=== PATIENT | male | born 1975 ===

== ENCOUNTER 2021-03-14 09:08 | Outpatient (REF) | payer OTHER, MEDICAID, SELFPAY ==
[2021-03-14 11:10] LABS: Appearance Urine CLEAR; Color Urine YELLOW; Glucose Urine UA NEG (NEG); Leukocyte Esterase Urine NEG (NEG); Nitrite Urine NEG (NEG); PH 5.5 (5.0-8.0); Specific Gravity - Urine 1.025 (1.005-1.025); Urine Blood NEG (NEG); Urine Ketones NEG (NEG); Urine Protein NEG (NEG-TRACE)
[2021-03-14 11:49] LABS: Alanine Aminotransferase 35 U/L (0-40); Albumin Level 4.5 g/dL (3.5-5.0); Alkaline Phosphatase 48 U/L (39-117); Anion Gap 14 (12-20); Aspartate Amino Transferase 48 U/L (5-37); Bilirubin Total 0.5 mg/dL (0.0-1.0); Blood Urea Nitrogen 13 mg/dL (9-16); Calcium 9.9 mg/dL (8.4-10.2); Carbon Dioxide 29 mmol/L (22-29); Chloride 104 mmol/L (96-108); Cholesterol 223 mg/dL; Estimated Glomerular Filt Rate > 60; Glucose Fasting 87 mg/dL (60-99); HDL Cholesterol 76 mg/dL; LDL Cholesterol Calculated 117 mg/dl; Potassium 5.4 mmol/L (3.3-5.1); Sodium 142 mmol/L (135-145); Total Protein 7.2 g/dL (6.5-8.0); Triglycerides 154 mg/dL
[2021-03-14 12:18] LABS: Prostate Specific Antigen Scr 0.85 ng/mL (<0.05-4.0); TSH reflex Free T4 0.87 uIU/mL (0.32-4.0)
== END 2021-03-14 09:09 | disposition home or self-care (01) ==
LOC: HO.HMGCLDS 09:08
PROVIDERS: PCP Nurse Practitioner Family; Visit Provider Nurse Practitioner Family
DX: N39.43 Post-void dribbling (principal); R74.8 Abnormal levels of other serum enzymes
CPT/HCPCS: 36415; 80053; 80061; 81003; 84153; 84443

== ENCOUNTER 2021-03-18 12:52 | Outpatient (REF) | payer OTHER, MEDICAID, SELFPAY ==
[2021-03-18 16:46] LABS: Anion Gap 13 (12-20); Carbon Dioxide 29 mmol/L (22-29); Chloride 101 mmol/L (96-108); Potassium 4.1 mmol/L (3.3-5.1); Sodium 139 mmol/L (135-145)
[2021-03-19 07:56] LABS: HBc Num1 0.17 S/CO (0.00-0.79); HBsAGNum1 0.22 S/CO (0.00-0.99); Hepatitis B Core Antibody Nonreactive (Nonreactive); Hepatitis B Surface Antigen Negative (Negative); ~HepC Num1 0.11 S/CO (0.00-0.79); ~Hepatitis C Antibody Nonreactive (Nonreactive)
[2021-03-19 08:36] LABS: ~Hepatitis B Surface Antibody NONREACTIVE (Nonreactive)
[2021-03-20 07:45] LABS: Hepatitis A Antibody IgM 0.12 Index (0-0.79); ~Hepatitis A Antibody IgM Nonreactive (Nonreactive)
== END 2021-03-18 12:53 | disposition home or self-care (01) ==
LOC: HO.HMGCLDS 12:52
PROVIDERS: PCP Nurse Practitioner Family; Visit Provider Nurse Practitioner Family
DX: E87.5 Hyperkalemia (principal); R74.8 Abnormal levels of other serum enzymes
CPT/HCPCS: 36415; 80051; 86704; 86706; 86709; 86803; 87340

== ENCOUNTER 2021-04-03 11:36 | Outpatient (REF) | payer OTHER, MEDICAID, SELFPAY ==
--- NOTE | ~2021-04-03 | US_ITS ---
EXAMINATION: US ABDOMEN COMPLETE CLINICAL INFORMATION: Elevated liver enzymes. COMPARISON: None. TECHNIQUE: Real-time imaging of the abdominal viscera. FINDINGS: PANCREAS: Normal. ABDOMINAL AORTA: The proximal, mid, and distal segments are normal in caliber. INFERIOR VENA CAVA: Visualized portions are normal. LIVER: The liver is normal in size. The liver contour is normal. There is diffuse increased liver parenchymal echogenicity, consistent with infiltrative hepatocellular disease. No focal hepatic lesion. There is no intrahepatic biliary duct dilatation seen. GALLBLADDER: Normal. The gallbladder is physiologically distended without evidence of stones, sludge, polyps, wall thickening or pericholecystic fluid. COMMON BILE DUCT: Normal in caliber measuring 0.14 cm in diameter. RIGHT KIDNEY: Normal. No hydronephrosis. No renal calculi or focal parenchymal lesions. The kidney measures 11.6 x 4.6 x 7.2 cm in maximum dimension. LEFT KIDNEY: Normal. No hydronephrosis. No renal calculi or focal parenchymal lesions. The kidney measures 11.7 x 5.9 x 6.1 cm in maximum dimension. SPLEEN: Normal. The spleen measures 11.4 cm in maximum dimension. FREE FLUID: None. US/US abdomen complete IMPRESSION: Increased hepatic echogenicity which can be seen in the setting of hepatic steatosis or underlying liver disease.
--- NOTE | ~2021-04-03 | US_ITS ---
EXAMINATION: US PELVIS LIMITED (BLADDER) CLINICAL INFORMATION: Postvoid dribbling. COMPARISON: None TECHNIQUE: Real-time imaging of the bladder. FINDINGS: BLADDER: Well distended and normal. Bilateral ureteral jets are demonstrated. Prevoid bladder volume is 169 mL. Postvoid bladder volume is 5.4 mL. ADDITIONAL FINDINGS: Prostate is normal in size measuring 17.8 mL. Dystrophic calcifications are noted within the prostate. US/US bladder IMPRESSION: Unremarkable sonographic appearance of the bladder with a negligible post void residual.
== END 2021-04-03 11:37 | disposition home or self-care (01) ==
LOC: HO.HMGCX 11:36
PROVIDERS: PCP Nurse Practitioner Family; Visit Provider Nurse Practitioner Family
DX: N39.43 Post-void dribbling (principal); R74.8 Abnormal levels of other serum enzymes
CPT/HCPCS: 76700; 76857

== ENCOUNTER 2021-06-03 09:43 | Emergency (ER) | payer OTHER, MEDICAID, SELFPAY ==
[2021-06-03 10:18] VITALS: BP 158/108; PULSE 78; RESP 19; TEMP 37.5; O2SAT 98
[2021-06-03 10:34] VITALS: BP 173/110; PULSE 81; RESP 16; TEMP 36.1; O2SAT 100; BMI 25.7
--- NOTE | 2021-06-03 10:34 | ED_ITS ---
HPI - General Adult General Chief complaint: Back Pain/Injury Stated complaint: back pain Time Seen by Provider: 06/03/21 10:34 Source: patient Mode of arrival: ambulatory Limitations: no limitations History of Present Illness HPI narrative: Patient is a 45 year old male presenting to the emergency department today with right sided back pain. Patient states that since Thursday night, he has had pain in his right lower back. Patient states that he has had previous back problems but his neurosurgeon moved and he has not been able to establish with a new one. Patient denies any dizziness, lightheadedness, abdominal pain, nausea, vomiting, fever, chills, blurry vision, double vision, loss of vision, chest pain, difficulty breathing, shortness of breath, night sweats, pain with urination, increased urinary frequency, increased urinary urgency, blood in his urine or stool, syncope or a near syncopal episode, recent trauma or falls, bowel incontinence, bladder incontinence, bowel retention, bladder retention, or any other complaints at this time. Onset (ago): day(s) Location: back Radiation: non-radiation Severity: mild Severity scale (1-10): 3 Quality: dull Pain Consistency: intermittent Relieving factors: none Exacerbating factors: none Associated symptoms: denies other symptoms Treatments prior to arrival: none Related Data Home Medications Medication Instructions Recorded Confirmed dextroamphetamine-amphetamine 20 1 tab PO BID 03/13/21 03/13/21 mg tablet gabapentin 600 mg tablet 600 mg PO TID 03/13/21 03/13/21 lorazepam 1 mg tablet 1 mg PO DAILY PRN 03/13/21 03/13/21 Previous Rx's Medication Instructions Recorded Magic Mouthwash 5 ml PO TID 7 Days #240 ml 05/31/21 Diphen/Lido/Antacid 1:1:1 240 mL suspension cyclobenzaprine 10 mg tablet 10 mg PO TID PRN 7 Days #21 tab 06/03/21 Allergies Allergy/AdvReac Type Severity Reaction Status Date / Time No Known Allergies Allergy Verified 05/31/21 08:54 Review of Systems Constitutional: Constitutional: Reports no additional constitutional complaints, Denies chills, Denies fever(s) and Denies night sweats Eyes: Eyes: Reports no additional eye complaints, Denies blurry vision, Denies change in vision, Denies diplopia, Denies eye discharge, Denies loss of vision and Denies eye pain ENT: Denies dizziness Cardiovascular: Cardiovascular: Reports no additional cardiovascular c omplaints, Denies chest pain, Denies lightheadedness, Denies Loss of Consciousness and Denies dyspnea Respiratory: Respiratory: Reports no additional respiratory complaints and Denies dyspnea Gastrointestinal: Gastrointestinal: Reports no additional gastrointestinal complaints, Denies abdominal pain, Denies melena, Denies hematochezia, Denies change in bowel habits and Denies change in stool character Genitourinary: Genitourinary: Reports no additional male genitourinary complaints, Denies hematuria, Denies oliguria, Denies difficulty urinating, Denies dysuria, Denies urinary frequency, Denies urinary hesitancy, Denies urinary incontinence and Denies urinary urgency Musculoskeletal: Musculoskeletal: Reports no additional musculoskeletal complaints, Reports back pain, Denies numbness and Denies tingling Neurologic: Denies dizziness, Denies loss of vision, Denies numbness and Denies tingling Psychiatric: Psychiatric: Reports no additional psychiatric complaints Endocrine: Endocrine: Reports no additional endocrine complaints Hematologic/Lymphatic: Hematologic/Lymphatic: Reports no additional hematologic/lymphatic complaints Allergic/Immunologic: Allergic/Immunologic: Reports no additional allergic/immunologic complaints PMFSH Past Medical History Attestation statement: The following information was validated with the patient. Source: old records reviewed Medical History Hematoma of nasal septum Surgical History Previous back surgery Social History Social History Advance Directives: No Advance Directives Information Provided: Yes Physical Exam ED Vital Signs: Vital Signs - 24 hr 06/03/21 10:18 06/03/21 10:34 06/03/21 11:08 Temperature 99.5 F 97.0 F Pulse Rate 78 81 72 Respiratory Rate 19 16 16 Blood Pressure 158/108 H 173/110 H 156/107 H Pulse Oximetry 98 100 98 BMI result Body Mass Index 25.7 Const General: cooperative, no acute distress, alert and awake Nutritional Appearance: well nourished Orientation/consciousness: patient oriented x3 Limitations: no limitations HENMT Head: Yes normal to inspection and Yes atraumatic Ears: hearing grossly normal bilaterally and external ears normal General nose exam: Normal external nose present, no nasal discharge noted and no epistaxis Face and sinus: Yes normal facial exam, No abrasion and No laceration Mouth: Normal oral and palatal mucosa present, no drooling and no muffled voice Eyes General: appearance normal, both eyes and all related structures Periorbital: periorbital findings normal Eyelids: Yes eyelids normal Conjunctivae: conjunctivae normal Pupils: Equal, round and reactive pupils present EOM: EOMs intact bilaterally Neck Neck: Yes normal visual inspection, Yes full ROM and Yes no lymphadenopathy Chest Chest palpation & inspection: normal inspection of the chest Resp Effort & Inspection: normal respiratory effort and able to speak in complete sentences Auscultation: clear to auscultation bilaterally GI Inspection: Yes normal to inspection General: Yes no CVA tenderness Back/Spine/Pelvis Back: no CVA tenderness Cervical Spine: normal cervical lordosis and cervical ROM normal Thoracic/Lumbar Spine: thoracic and lumbar spine normal to inspection and thoraco-lumbar ROM normal Neuro General: patient oriented x3 and moves all extremities Cranial nerves: Yes Equal, round and reactive pupils present Cognition (Neuro): normal cognition Motor exam (neuro): 5/5 motor strength present throughout Sensory Exam: Normal double simultaneous stimulation for sensation Coordination: [id number] test normal Extrem General: Yes normal to inspection, Yes full ROM and Yes capillary refill normal Psych Appearance: grossly normal Mental Status: mental status grossly normal Affect: normal affect Attitude: cooperative Thought process: Normal thought process present Thought content: Normal thought content present Insight: Good insight present (Psych) Medical Decision Making [facility] Narrative Medical decision making narrative: Patient is a 45 year old male presenting to the emergency department today with right sided back pain. Patient's physical exam was unremarkable. Due to the patient's current presentation and explanation of pain, I believe this to be musculoskeletal in nature and potentially a muscle spasm. I explained my physical exam findings to the patient. I answered all questions asked by the patient. Patient received IM toradol and PO Flexeril which he stated helped his pain significantly. I stressed the importance of the patient taking his medication as prescribed. I stressed the importance of the patient following up with his primary care provider and an orthopedist. I stressed the importance of the patient returning to the emergency department immediately if his symptoms were to worsen or if he were to develop any dizziness, shortness of breath, difficulty breathing, chest pain, blurry vision, loss of vision, nausea, vomiting, abdominal pain, fever, chills, back pain, or any other complaints. Patient verbalized agreement and understanding with this treatment plan and discharge. Differential Diagnosis Differential Diagnosis: back spasm, back pain Medical Records Medical records reviewed: Yes I reviewed the patient's medical records. Discharge Plan Discharge Clinical Impression: Muscle spasm, Back pain Patient Disposition: Home, Self-Care Instructions: Acute Low Back Pain (ED), Muscle Spasm (ED) Additional Instructions: Call to schedule a follow up appointment with an Orthopedic provider. Follow up with your primary care provider. Return to the emergency department immediately if your symptoms worsen or if you develop any dizziness, shortness of breath, difficulty breathing, chest pain, blurry vision, loss of vision, nausea, vomiting, abdominal pain, fever, chills, back pain, or any other complaints. Prescriptions: New cyclobenzaprine 10 mg tablet 10 mg PO TID PRN (Reason: muscle spasm) 7 Days Qty: 21 0RF No Action gabapentin 600 mg tablet 600 mg PO TID 0RF dextroamphetamine-amphetamine 20 mg tablet 1 tab PO BID 0RF lorazepam 1 mg tablet 1 mg PO DAILY PRN0RF Magic Mouthwash Diphen/Lido/Antacid 1:1:1 240 mL suspension 5 ml PO TID 7 Days Qty: 240 0RF Rx Instructions: Lidocaine Viscous 2 % 80mL; diphenhydramine 12.5 mg/5 mL 80mL; aluminum-mag hydrox-simeth [id number]/5mL 80mL Referrals: Kush Barrientos MD [Physician] - 2 days Abdifatah Garcia FNP-CED [Primary Care Provider] - 2 days Interventions: ED Discharge Assessment Last Done: 06/03/21 11:04 Discharge Date/Time: 06/03/21 11:09 Print Language: Japanese
[2021-06-03] MEDS: Ketorolac Tromethamine 15 MG/ML VIAL IM (10:50)
[2021-06-03] MEDS: Cyclobenzaprine HCl 10 MG TABLET PO (10:50)
--- NOTE | 2021-06-03 11:03 | PC.NURSE ---
hypertension r/t acute pain level provider aware . patient medicated prior to discharge .results pending
[2021-06-03 11:08] VITALS: BP 156/107; PULSE 72; RESP 16; O2SAT 98
== END 2021-06-03 11:09 | disposition home or self-care (01) ==
PROVIDERS: Emergency Provider Emergency Medicine; PCP Nurse Practitioner Family
DX: M54.50 Low back pain, unspecified (principal); M62.830 Muscle spasm of back; I10 Essential (primary) hypertension
CPT/HCPCS: 96372; 99284; J1885

== ENCOUNTER 2021-06-11 14:56 | Outpatient (REF) | payer OTHER, MEDICAID, SELFPAY ==
--- NOTE | ~2021-06-11 | XR_ITS ---
EXAMINATION: XR LUMBOSACRAL SPINE CLINICAL INFORMATION: Radiculopathy, lumbar region COMPARISON: Previous exam November 2013 TECHNIQUE: Three views of the lumbosacral spine. FINDINGS: The vertebral bodies and posterior elements are normal. The disc spaces are preserved and the vertebral alignment is normal. The paraspinal soft tissues are normal. XR/XR lumbar spine 2-3V IMPRESSION: Unremarkable examination.
== END 2021-06-11 14:57 | disposition home or self-care (01) ==
LOC: HO.HMGCX 14:56
PROVIDERS: PCP Nurse Practitioner Family; Visit Provider Nurse Practitioner Family
DX: M54.16 Radiculopathy, lumbar region (principal)
CPT/HCPCS: 72100

== ENCOUNTER 2021-07-02 07:51 | Outpatient (RCR) | payer OTHER, MEDICAID, SELFPAY ==
--- NOTE | 2021-07-02 13:39 | MHC.PT.EP ---
[facility] [place] Office [place] Office [place] Office [address] [place] [address] [phone] F: [phone] F: [phone] F: [phone] F: [phone] Physical Therapy Plan of Care Date of Evaluation: Date of Surgery: Microdiscectomy around 6 years ago Diagnosis: Lumbar radiculopathy affecting R LE Assessment: Patient is a 45 year old R handed male who presents with s/s consistent with low back pain, radiculopathy impacting R LE. He has 2 children and several animals he assists with daily in addition to gardening and taking care of the house. Patient past medical history includes b/l meniscectomy and L4-L5 microdiscectomy. Current impairments include pain, ROM, strength, activity tolerance and functional mobility. Functional limitations include decreased ability to walk, stand, and biking for longer periods, as well as lifting and carrying, bending. We discussed the plan and pt in agreement to call back if symptoms worsen as he is having less s/s overall and is felling better than when he originally saw his MD. Frequency and Duration: The patient will be seen Follow up visit in 2-3 weeks if s/s worsen. Short Term Goals: Dependent on need for follow up. Engineering Associate Goals: Dependent on need for follow up. Treatment Plan: Modalities to reduce pain, spasms and effusion. Manual therapy to restore motion and function. Therapeutic exercise to improve strength and flexibility. Neuromuscular re-education for posture and balance. Therapeutic activities to return to functional activities of daily living. Electronically signed by: Shawn Bo, PT Please sign and return to therapist. Thank you for your referral.
--- NOTE | 2021-11-28 10:23 | MHC.PT.DC ---
[facility] [place] Office [place] Office [place] Office [address] [phone] F: [phone] F: [phone] F: [phone] F: [phone] Physical Therapy Discharge Report Diagnosis: Lumbar radiculopathy affecting R LE Date of Surgery: Microdiscectomy around 6 years ago Date of Evaluation: 07/02/21 Date of Discharge: 07/31/21 Treatments to Date: 1 Cancellations to Date: No Shows to Date: Discharge Status: Patient Elected to Stop Discharge Summary: Patient is a 45 year old R handed male who presents with s/s consistent with low back pain, radiculopathy impacting R LE. He has 2 children and several animals he assists with daily in addition to gardening and taking care of the house. Patient past medical history includes b/l meniscectomy and L4-L5 microdiscectomy. Current impairments include pain, ROM, strength, activity tolerance and functional mobility. Functional limitations include decreased ability to walk, stand, and biking for longer periods, as well as lifting and carrying, bending. Pt will hold on PT at this time and return if s/s worsen. Electronically signed by: Shawn Bo, PT Please sign and return to therapist. Thank you for your referral.
== END 2021-11-28 10:23 | disposition home or self-care (01) ==
LOC: HO.PTCHIC 07:51
PROVIDERS: PCP Nurse Practitioner Family; Visit Provider Nurse Practitioner Family
DX: M54.16 Radiculopathy, lumbar region (principal)
CPT/HCPCS: 97162

== ENCOUNTER 2021-08-29 09:22 | Outpatient (REF) | payer OTHER, MEDICAID, SELFPAY ==
[2021-08-29 11:04] LABS: MANUAL DIFF FLAG NO
[2021-08-29 11:06] LABS: Appearance Urine CLEAR; Color Urine STRAW; Glucose Urine UA NEG (NEG); Leukocyte Esterase Urine NEG (NEG); Nitrite Urine NEG (NEG); Urine Blood NEG (NEG); Urine Ketones NEG (NEG); Urine Protein NEG (NEG-TRACE)
[2021-08-29 11:14] LABS: Basophils Percent Auto 0.5 % (0-2); Eosinophils Absolute Auto 0.3 X10*3/uL (0.0-0.4); Eosinophils Percent Auto 3.8 % (0-4); Hematocrit 42.9 % (42.0-52.0); Hemoglobin 14.2 g/dl (14.0-18.0); Imm Gran Abs Auto 0.03 X10*3/uL (0.00-0.03); Imm Gran Pct Auto 0.5 % (0.0-0.4); Lymphocytes Absolute Auto 2.1 X10*3/uL (1.2-4.9); Lymphocytes Percent Auto 32.3 % (20-40); Mean Corpuscular HGB Conc 33.1 g/dl (31.0-36.0); Mean Corpuscular Hemoglobin 32.9 pg (27.0-33.0); Mean Corpuscular Volume 99.3 fL (80.0-98.0); Mean Platelet Volume 9.2 fL (9.4-12.4); Monocytes Absolute Auto 0.8 X10*3/uL (0.1-1.2); Monocytes Percent Auto 12.1 % (2-11); Neutrophils Absolute Auto 3.4 x10*3/uL (2.0-8.3); Neutrophils Percent Auto 50.8 % (45-73); Platelet Count 288 X10*3/uL (160-400); Red Blood Count 4.32 X10*6/uL (4.60-5.80); Red Cell Distribution Width 12.3 % (11.0-16.0); White Blood Count 6.6 X10*3/uL (4.8-10.8)
[2021-08-29 11:42] LABS: TSH reflex Free T4 2.15 uIU/mL (0.32-4.0)
[2021-08-29 11:44] LABS: Alanine Aminotransferase 72 U/L (0-40); Albumin Level 4.6 g/dL (3.5-5.0); Alkaline Phosphatase 56 U/L (39-117); Anion Gap 14 (12-20); Aspartate Amino Transferase 88 U/L (5-37); Bilirubin Total 0.4 mg/dL (0.0-1.0); Blood Urea Nitrogen 12 mg/dL (9-16); Calcium 9.6 mg/dL (8.4-10.2); Carbon Dioxide 30 mmol/L (22-29); Chloride 100 mmol/L (96-108); Cholesterol 251 mg/dL; Estimated Glomerular Filt Rate > 60; Glucose Fasting 105 mg/dL (60-99); HDL Cholesterol 84 mg/dL; LDL Cholesterol Calculated 132 mg/dl; Potassium 4.7 mmol/L (3.3-5.1); Sodium 139 mmol/L (135-145); Total Protein 7.3 g/dL (6.5-8.0); Triglycerides 178 mg/dL
== END 2021-08-29 09:23 | disposition home or self-care (01) ==
LOC: HO.HMGCLDS 09:22
PROVIDERS: PCP Nurse Practitioner Family; Visit Provider Nurse Practitioner Family
DX: Z00.00 Encounter for general adult medical examination without abnormal findings (principal)
CPT/HCPCS: 36415; 80053; 80061; 81003; 84443; 85025

== ENCOUNTER 2022-07-14 08:40 | Outpatient (REF) | payer OTHER, MEDICAID, SELFPAY ==
[2022-07-14 11:17] LABS: MANUAL DIFF FLAG NO
[2022-07-14 11:45] LABS: Basophils Absolute Auto 0.1 X10*3/uL (0.0-0.2); Eosinophils Absolute Auto 0.2 X10*3/uL (0.0-0.4); Eosinophils Percent Auto 3.9 % (0-4); Imm Gran Abs Auto 0.01 X10*3/uL (0.00-0.03); Imm Gran Pct Auto 0.2 % (0.0-0.4); Lymphocytes Percent Auto 38.7 % (20-40); Mean Corpuscular HGB Conc 33.3 g/dl (31.0-36.0); Mean Corpuscular Hemoglobin 33.6 pg (27.0-33.0); Mean Corpuscular Volume 100.9 fL (80.0-98.0); Mean Platelet Volume 9.6 fL (9.4-12.4); Monocytes Absolute Auto 0.6 X10*3/uL (0.1-1.2); Monocytes Percent Auto 10.6 % (2-11); Neutrophils Absolute Auto 2.4 x10*3/uL (2.0-8.3); Neutrophils Percent Auto 45.6 % (45-73); Platelet Count 276 X10*3/uL (160-400); Red Blood Count 4.46 X10*6/uL (4.60-5.80); Red Cell Distribution Width 11.8 % (11.0-16.0); White Blood Count 5.2 X10*3/uL (4.8-10.8)
[2022-07-14 12:22] LABS: Alanine Aminotransferase 162 U/L (0-40); Albumin Level 4.3 g/dL (3.5-5.0); Alkaline Phosphatase 68 U/L (39-117); Anion Gap 15 (12-20); Aspartate Amino Transferase 229 U/L (5-37); Bilirubin Total 0.6 mg/dL (0.0-1.0); Blood Urea Nitrogen 14 mg/dL (9-16); Calcium 9.2 mg/dL (8.4-10.2); Carbon Dioxide 27 mmol/L (22-29); Chloride 103 mmol/L (96-108); Cholesterol 259 mg/dL; Estimated Glomerular Filt Rate > 60; Glucose Fasting 99 mg/dL (60-99); HDL Cholesterol 68 mg/dL; LDL Cholesterol Calculated 128 mg/dl; Potassium 5.5 mmol/L (3.3-5.1); Sodium 139 mmol/L (135-145); Total Protein 7.1 g/dL (6.5-8.0); Triglycerides 318 mg/dL
[2022-07-14 12:38] LABS: TSH reflex Free T4 1.83 uIU/mL (0.32-4.0)
== END 2022-07-14 08:41 | disposition home or self-care (01) ==
LOC: HO.HMGCLDS 08:40
PROVIDERS: PCP Nurse Practitioner Family; Visit Provider Nurse Practitioner Family
DX: I10 Essential (primary) hypertension (principal)
CPT/HCPCS: 36415; 80053; 80061; 84443; 85025

== ENCOUNTER 2022-07-16 11:09 | Outpatient (REF) | payer OTHER, MEDICAID, SELFPAY ==
[2022-07-16 14:19] LABS: MANUAL DIFF FLAG NO
[2022-07-16 14:27] LABS: Basophils Absolute Auto 0.1 X10*3/uL (0.0-0.2); Basophils Percent Auto 0.7 % (0-2); Eosinophils Absolute Auto 0.1 X10*3/uL (0.0-0.4); Hematocrit 46.1 % (42.0-52.0); Hemoglobin 15.5 g/dl (14.0-18.0); Imm Gran Abs Auto 0.02 X10*3/uL (0.00-0.03); Imm Gran Pct Auto 0.3 % (0.0-0.4); Lymphocytes Absolute Auto 1.7 X10*3/uL (1.2-4.9); Lymphocytes Percent Auto 23.5 % (20-40); Mean Corpuscular HGB Conc 33.6 g/dl (31.0-36.0); Mean Corpuscular Hemoglobin 33.5 pg (27.0-33.0); Mean Corpuscular Volume 99.6 fL (80.0-98.0); Mean Platelet Volume 9.4 fL (9.4-12.4); Monocytes Absolute Auto 0.7 X10*3/uL (0.1-1.2); Monocytes Percent Auto 9.4 % (2-11); Neutrophils Absolute Auto 4.6 x10*3/uL (2.0-8.3); Neutrophils Percent Auto 64.1 % (45-73); Platelet Count 270 X10*3/uL (160-400); Red Blood Count 4.63 X10*6/uL (4.60-5.80); Red Cell Distribution Width 11.9 % (11.0-16.0); White Blood Count 7.1 X10*3/uL (4.8-10.8)
[2022-07-16 15:03] LABS: Alanine Aminotransferase 152 U/L (0-40); Albumin Level 4.8 g/dL (3.5-5.0); Alkaline Phosphatase 68 U/L (39-117); Anion Gap 16 (12-20); Aspartate Amino Transferase 173 U/L (5-37); Blood Urea Nitrogen 16 mg/dL (9-16); Calcium 9.8 mg/dL (8.4-10.2); Carbon Dioxide 27 mmol/L (22-29); Chloride 103 mmol/L (96-108); Estimated Glomerular Filt Rate > 60; Glucose Random 116 mg/dL (60-115); Potassium 4.9 mmol/L (3.3-5.1); Sodium 141 mmol/L (135-145); Total Protein 7.6 g/dL (6.5-8.0)
== END 2022-07-16 11:10 | disposition home or self-care (01) ==
LOC: HO.HMGCLDS 11:09
PROVIDERS: PCP Nurse Practitioner Family; Visit Provider Nurse Practitioner Family
DX: E87.5 Hyperkalemia (principal); R74.8 Abnormal levels of other serum enzymes
CPT/HCPCS: 36415; 80053; 85025

== ENCOUNTER 2022-09-02 12:33 | Outpatient (REF) | payer OTHER, MEDICAID, SELFPAY ==
[2022-09-02 14:15] LABS: MANUAL DIFF FLAG NO
[2022-09-02 14:23] LABS: Basophils Percent Auto 0.6 % (0-2); Eosinophils Absolute Auto 0.1 X10*3/uL (0.0-0.4); Eosinophils Percent Auto 0.9 % (0-4); Hematocrit 44.8 % (42.0-52.0); Hemoglobin 15.2 g/dl (14.0-18.0); Imm Gran Abs Auto 0.02 X10*3/uL (0.00-0.03); Imm Gran Pct Auto 0.3 % (0.0-0.4); Lymphocytes Absolute Auto 1.6 X10*3/uL (1.2-4.9); Lymphocytes Percent Auto 25.5 % (20-40); Mean Corpuscular HGB Conc 33.9 g/dl (31.0-36.0); Mean Corpuscular Hemoglobin 33.3 pg (27.0-33.0); Mean Corpuscular Volume 98.2 fL (80.0-98.0); Monocytes Absolute Auto 0.6 X10*3/uL (0.1-1.2); Neutrophils Percent Auto 62.7 % (45-73); Platelet Count 308 X10*3/uL (160-400); Red Blood Count 4.56 X10*6/uL (4.60-5.80); Red Cell Distribution Width 12.3 % (11.0-16.0); White Blood Count 6.4 X10*3/uL (4.8-10.8)
[2022-09-02 14:25] LABS: Appearance Urine Clear; Color Urine Yellow; Glucose Urine UA Negative (Negative); Leukocyte Esterase Urine Negative (Negative); Nitrite Urine Negative (Negative); PH 5.5 (5.0-9.0); Urine Blood Negative (Negative); Urine Ketones Trace mg/dL (Negative); Urine Protein Negative (Neg-Trace)
[2022-09-02 14:43] LABS: Alanine Aminotransferase 140 U/L (0-40); Albumin Level 4.6 g/dL (3.5-5.0); Alkaline Phosphatase 73 U/L (39-117); Anion Gap 18 (12-20); Aspartate Amino Transferase 226 U/L (5-37); Bilirubin Total 0.8 mg/dL (0.0-1.0); Blood Urea Nitrogen 12 mg/dL (9-16); Carbon Dioxide 26 mmol/L (22-29); Chloride 100 mmol/L (96-108); Cholesterol 279 mg/dL; Estimated Glomerular Filt Rate > 60; Glucose Fasting 127 mg/dL (60-99); HDL Cholesterol 64 mg/dL; Potassium 4.4 mmol/L (3.3-5.1); Sodium 140 mmol/L (135-145); Total Protein 7.8 g/dL (6.5-8.0); Triglycerides 493 mg/dL
[2022-09-02 14:57] LABS: TSH reflex Free T4 1.62 uIU/mL (0.32-4.0)
== END 2022-09-02 12:34 | disposition home or self-care (01) ==
LOC: HO.HMGCLDS 12:33
PROVIDERS: PCP Nurse Practitioner Family; Visit Provider Nurse Practitioner Family
DX: Z00.00 Encounter for general adult medical examination without abnormal findings (principal); I10 Essential (primary) hypertension; E78.5 Hyperlipidemia, unspecified; Z13.29 Encounter for screening for other suspected endocrine disorder
CPT/HCPCS: 36415; 80053; 80061; 81003; 84443; 85025

== ENCOUNTER 2023-02-23 10:12 | Outpatient (AMB) | payer OTHER, SELFPAY ==
--- NOTE | 2023-02-23 10:16 | A.OFFPC_ITS ---
Vital Signs 02/23/23 10:19 Height 6 ft Weight 210 lb BMI 28.5 BP 120/72 Blood Pressure Location Rt brachial Position Sitting Pulse 102 H Pulse Source Pulse Oximeter Pulse Oximetry (%) 98 Oxygen Delivery Method Room Air Intake Visit Reasons: 6 month follow up Intake Note: Patient here for blood pressure follow up. Allergies No Known Allergies Allergy (Verified 02/23/23 10:20) Medication List - Last Reconciled 02/23/23 by JIMY Larios amlodipine 5 mg PO DAILY dextroamphetamine-amphetamine 20 mg 1 tab PO BID gabapentin 600 mg PO TID 30 days hydrochlorothiazide 12.5 mg PO DAILY lisinopril 40 mg PO DAILY lorazepam 1 mg PO DAILY PRN Tobacco use date assessed: 09/02/22 HPI 6 month follow up HPI Details HTN: Blood pressure is managed with amlodipine 5mg, hydrochlorothiazide 12.5mg, and lisinopril 40mg. Denies chest pain, shortness of breath, headache, dizziness, and blurred vision. Pt c/o low libido. Will check testosterone. Pt's fasting blood sugar was elevated, will order further labs. Due for colon screen, will refer to GI. [facility] Medical History Hematoma of nasal septum Surgical History Previous back surgery Family History Mother Substance use disorder Mental health disorder Father Mental health disorder Maternal Grandmother Mental health disorder Maternal Uncle Mental health disorder Social History Housing: House Patient Tobacco Use Status: Former Tobacco user Years Smoked: quit over 10years ago e-Cigarette/Vaping Use: Never Used Second Hand Smoke Exposure: No service: No Current occupational status: unemployed Cognitive needs: No Hearing needs: No Vision needs: No Questionnaire Thrive Questionnaire Date Thrive assessed: 07/16/22 LYNNETTE-7 AMB Questionnaire LYNNETTE-7 Date LYNNETTE - 7 assessed: 07/16/22 Source: Developed by Drs. Bladimir Maldonado, Jessie Abebe Ramirez and colleagues, with an educational delilah from [employer]. Review of Systems Const Reports as per HPI Physical exam (Primary Care) Vital Signs: Last Vital Signs Pulse 102 H 02/23/23 10:19 BP 120/72 02/23/23 10:19 Pulse Ox 98 02/23/23 10:19 Oxygen Delivery Method Room Air 02/23/23 10:19 BMI result Body Mass Index 28.5 Tobacco/Smoking Status: Tobacco use Status Tobacco use date assessed 09/02/22 02/23/23 10:16 Patient Tobacco Use Status Former Tobacco user 02/23/23 10:16 e-Cigarette/Vaping Use Never Used 02/23/23 10:16 Thrive Assessment: Date of Thrive Assessment Date Thrive assessed 07/16/22 02/23/23 10:16 Const General: cooperative Orientation/consciousness: patient oriented x3 Resp Effort & Inspection: normal respiratory effort Auscultation: clear to auscultation bilaterally Cardio Rate: regular rate Rhythm: regular rhythm Heart sounds: S1 normal heart sound present and S2 normal heart sound present Neuro General: patient oriented x3 Psych Appearance: grossly normal Mental Status: mental status grossly normal Speech and movement: Normal speech and movement present Affect: normal affect Attitude: cooperative Thought process: Normal thought process present Thought content: Normal thought content present Insight: Good insight present (Psych) Judgement: Good judgement present (Psych) Assessment and Plan Assessment & Plan (1) Elevated fasting blood sugar: Code(s): R73.01 - Impaired fasting glucose Plan: Labs ordered (2) Screening for colon cancer: Code(s): Z12.11 - Encounter for screening for malignant neoplasm of colon Plan: Referred to [facility] (3) Low libido: Code(s): R68.82 - Decreased libido Plan: Testosterone ordered Plan The patient agreed to the use of a curator medical museum for this encounter. Scribed for JIMY Sullivan by Xiomara Hazel curator medical museum, on 02/23/2023 at 10:30 EST. Orders: Orders Hemoglobin A1c Today R73.01 - Impaired fasting glucose Complete Blood Count Auto Diff Today R73.01 - Impaired fasting glucose TSH reflex Free T4 Today R73.01 - Impaired fasting glucose Testosterone, Free/Total Today R68.82 - Decreased libido Comprehensive Met. Panel Today R73.01 - Impaired fasting glucose UA CC w/rflx Micro + Cult Today R73.01 - Impaired fasting glucose Referrals Gastroenterology Referral Z12.11 - Encounter for screening for malignant neoplasm of colon Coding Level of Care Code Est Pt Level 3 (27321) Diagnoses Elevated fasting blood sugar R73.01 Screening for colon cancer Z12.11 Low libido R68.82
[2023-02-23 10:19] VITALS: BP 120/72; PULSE 102; O2SAT 98; BMI 28.5
== END 2023-02-23 10:39 | disposition home or self-care (01) ==
PROVIDERS: PCP Nurse Practitioner Family; Visit Provider Nurse Practitioner Family
DX: R73.01 Impaired fasting glucose (principal); Z12.11 Encounter for screening for malignant neoplasm of colon; R68.82 Decreased libido
CPT/HCPCS: 99213

== ENCOUNTER 2023-02-23 10:40 | Outpatient (REF) | payer OTHER, SELFPAY ==
[2023-02-23 13:08] LABS: MANUAL DIFF FLAG NO
[2023-02-23 13:26] LABS: Estimated Average Glucose 103 mg/dL; Hemoglobin A1c % 5.2 % (<6.0)
[2023-02-23 13:41] LABS: Alanine Aminotransferase 39 U/L (0-40); Albumin Level 4.2 g/dL (3.5-5.0); Alkaline Phosphatase 52 U/L (39-117); Anion Gap 17 (12-20); Aspartate Amino Transferase 56 U/L (5-37); Bilirubin Total 0.7 mg/dL (0.0-1.0); Blood Urea Nitrogen 8 mg/dL (9-16); Calcium 9.2 mg/dL (8.4-10.2); Carbon Dioxide 26 mmol/L (22-29); Chloride 98 mmol/L (96-108); Estimated Glomerular Filt Rate > 60; Glucose Random 118 mg/dL (60-115); Potassium 4.1 mmol/L (3.3-5.1); Sodium 137 mmol/L (135-145); Total Protein 7.4 g/dL (6.5-8.0)
[2023-02-23 13:58] LABS: Appearance Urine Clear; Color Urine Yellow; Glucose Urine UA Negative (Negative); Leukocyte Esterase Urine Negative (Negative); Nitrite Urine Negative (Negative); TSH reflex Free T4 3.11 uIU/mL (0.32-4.0); Urine Blood Negative (Negative); Urine Ketones Trace mg/dL (Negative); Urine Protein Negative (Neg-Trace)
[2023-02-23 14:18] LABS: Basophils Percent Auto 0.6 % (0-2); Eosinophils Absolute Auto 0.2 X10*3/uL (0.0-0.4); Eosinophils Percent Auto 2.4 % (0-4); Hematocrit 43.2 % (42.0-52.0); Hemoglobin 14.5 g/dl (14.0-18.0); Imm Gran Abs Auto 0.02 X10*3/uL (0.00-0.03); Imm Gran Pct Auto 0.3 % (0.0-0.4); Lymphocytes Absolute Auto 2.4 X10*3/uL (1.2-4.9); Lymphocytes Percent Auto 34.1 % (20-40); Mean Corpuscular HGB Conc 33.6 g/dl (31.0-36.0); Mean Corpuscular Hemoglobin 33.4 pg (27.0-33.0); Mean Corpuscular Volume 99.5 fL (80.0-98.0); Mean Platelet Volume 9.5 fL (9.4-12.4); Monocytes Absolute Auto 0.6 X10*3/uL (0.1-1.2); Monocytes Percent Auto 8.9 % (2-11); Neutrophils Absolute Auto 3.8 x10*3/uL (2.0-8.3); Neutrophils Percent Auto 53.7 % (45-73); Platelet Count 305 X10*3/uL (160-400); Red Blood Count 4.34 X10*6/uL (4.60-5.80); White Blood Count 7.1 X10*3/uL (4.8-10.8)
[2023-02-27 19:07] LABS: Testosterone, Free 85.9 pg/mL (35.0-155.0); Testosterone, Total 443 ng/dL (250-1100)
== END 2023-02-23 10:41 | disposition home or self-care (01) ==
LOC: HO.HMGCLDS 10:40
PROVIDERS: PCP Nurse Practitioner Family; Visit Provider Nurse Practitioner Family
DX: R73.01 Impaired fasting glucose (principal); R68.82 Decreased libido
CPT/HCPCS: 36415; 80053; 81003; 83036; 84402; 84403; 84443; 85025

== ENCOUNTER 2023-05-08 10:27 | Outpatient (REF) | payer OTHER, SELFPAY ==
[2023-05-08 12:39] LABS: C Reactive Protein 0.33 mg/dL (< or = 0.50)
[2023-05-08 12:56] LABS: TSH reflex Free T4 2.37 uIU/mL (0.32-4.0)
[2023-05-11 12:53] LABS: Thyroid Peroxidase Antibodies 1 IU/mL (<9)
[2023-05-12 19:28] LABS: Transglutaminase Ab IgG <1.0 U/mL; Transglutaminase IgA <1.0 U/mL
== END 2023-05-08 10:28 | disposition home or self-care (01) ==
LOC: HO.LAB 10:27
PROVIDERS: PCP Nurse Practitioner Family; Visit Provider Nurse Practitioner
DX: Z01.818 Encounter for other preprocedural examination (principal); D21.6 Benign neoplasm of connective and other soft tissue of trunk, unspecified; R19.7 Diarrhea, unspecified; R63.5 Abnormal weight gain; E06.3 Autoimmune thyroiditis; Z91.09 Other allergy status, other than to drugs and biological substances
CPT/HCPCS: 36415; 84443; 86003; 86140; 86364; 86376

== ENCOUNTER 2023-05-08 10:27 | Outpatient (AMB) | payer OTHER, SELFPAY ==
--- NOTE | 2023-05-08 10:31 | A.OFFVIS_ITS ---
Intake Vital Signs 05/08/23 10:33 Height 6 ft Weight 220 lb 7.396 oz BMI 29.9 BP 141/93 H Blood Pressure Location Lt brachial Position Sitting Pulse 84 Intake Visit Reasons: Colonoscopy Screening Intake Note: New patient in office for colonoscopy screening. CC: everything is lose, constant gurgling in there, not much pain just discomfort . He reports nausea and occasional heartburn and acid reflux but states its never being an issue Patient sates last colonoscopy was here with us about 5 years ago. 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 He is referred by Abdifatah Garcia of [facility] primary care. PMX Alcohol misuse disorder Hypertension High cholesterol Impaired fasting glucose Abnormal liver enzymes Low back pain with radiculopathy Dribbling with urination Hematoma of the nasal septum History of tubular adenoma History of Yonas's thyroiditis History of Suboxone use for chronic pain * SURGICAL HISTORY Microdiscectomy L4-L5 resolved any pain Colonoscopy, 2018-[place] hyperplastic polyp bilatera meniscus repair Tonsillectomy Pilonidal cyst removal * ALLERGIES: NKDA * [employer] LABS: Laboratory Tests 03/18/21 03/18/21 02/23/23 13:24 13:24 10:50 WBC 7.1 Hgb 14.5 Hct 43.2 MCV 99.5 H MCH 33.4 H Plt Count 305 Estimated GFR > 60 Total Bilirubin 0.7 AST 56 H ALT 39 Alkaline Phosphata se 52 TSH Hepatitis A IgM Ab Nonreactive Hep Bs Antigen Negative Hep Bs Antibody NONREACTIVE Hep B Core Total A b Nonreactive Hepatitis C Ab (EI A) Nonreactive 02/23/23 10:50 WBC Hgb Hct MCV MCH Plt Count Estimated GFR Total Bilirubin AST ALT Alkaline Phosphata se TSH 3.11 Hepatitis A IgM Ab Hep Bs Antigen Hep Bs Antibody Hep B Core Total A b Hepatitis C Ab (EI A) Laboratory Tests 02/23/23 10:50 TSH 3.11 60# over past year 2018 colonoscopy-[place] COMMENT: Patient is on Suboxone therapy. PROCEDURE DONE: Colonoscopy with cold snare polypectomy x1. PROCEDURE IN DETAIL: Digital rectal examination revealed prostate to be normal to digital palpation. Videocolonoscope was introduced without difficulty. It was navigated into the rectosigmoid, sigmoid. Polyp was seen at about 15 cm. Decision was made to remove the polyp at the end of the procedure. Scope was advanced through sigmoid, descending, transverse, ascending colon, down to the cecal cap. There was a fair residual of slightly murky bilious fluid throughout the colon causing limited viewing which necessitated flushing and suctioning to adequately view the mucosa. Scope continued to be withdrawn. Polyp was reidentified at 15 cm and was removed with cold snare polypectomy technique. No adverse bleeding was noted. Anorectal verge was clear. There were 1 plus internal hemorrhoids present. GENERAL IMPRESSION: 1. Rectosigmoid polyp. 2. Internal hemorrhoids, 1 plus. PLAN: Current recommendation to repeat asymptomatic screening in this patient will be 5 years. Patient will be seen in our office in followup to be clear on instructions about screening of his own and at-risk family members. Ha Neville MD /11/24 Received: 12/15/17 Submitted by: HA NEVILLE MD MATERIAL RECEIVED: POLYP AT 15 CM. -- DIAGNOSIS Colon, 15 cm, howard ypectomy: Hyperpl astic mucosal poly p TODAY'S VISIT He tolerated his prior 2 scopes well. He has been having diarrhea recently for a few months with slow onset, prior BM's were 1-2 times a day and formed. He has fecal urgency. He is living in a new house with new stress, he has recently cut back on ETOH from the hard stuff to just beer. He can not ID any new medications introduced, preceding illness, or diet changes otherwise. His lisinopril was recently increased and his newest med is HCTZ. No abd pain. He has occasional nausea in the AM. He has gained wt recently. 60# over past year. TSH creeping up. There are no prior problems with anesthesia or sedation. He denies any cardiac or respiratory problems. NO ID problems. He had a TA on prior scope and he does not know his FHX well. [facility] Medical History (Updated 05/08/23 @ 11:18 by SHYAM Bocye) Hematoma of nasal septum Surgical History (Updated 05/08/23 @ 11:00 by SHYAM Boyce) Hx of tonsillectomy H/O colonoscopy Previous back surgery Family History Mother Substance use disorder Mental health disorder Father Mental health disorder Maternal Grandmother Mental health disorder Maternal Uncle Mental health disorder Maternal Grandfather Skin cancer Maternal Uncle Cancer Maternal Aunt Breast cancer Social History Housing: House Patient Tobacco Use Status: Former Tobacco user Years Smoked: quit over 10years ago e-Cigarette/Vaping Use: Never Used Second Hand Smoke Exposure: No service: No Current occupational status: unemployed Cognitive needs: No Hearing needs: No Vision needs: No Review of Systems Const Denies fatigue, Denies fever(s), Denies night sweats, Denies poor appetite, Reports weight gain and Denies weight loss ENT Reports Normal hearing present, Denies dental pain, Denies dysphagia, Denies hearing loss, Denies mouth pain, Denies odynophagia, Denies throat swelling, Denies tongue swelling and Reports other (Dentition adequate) Card Reports no additional complaints Resp Reports no additional complaints GI Details: Denies abdominal pain, Denies melena, Denies bloating, Denies hematochezia, Denies constipation, Denies GI cramping, Denies dysphagia, Denies excessive flatus, Denies early satiety, Denies heartburn, Reports diarrhea, Denies nausea, Denies odynophagia, Denies vomiting and Denies hematemesis Skin/Breast Denies pruritus, Denies lesions, Denies rash and Denies jaundice Neuro Reports Normal hearing present and Denies Abnormal speech present Endo Denies fatigue Aller/Immun Denies throat swelling and Denies tongue swelling Physical Exam Vital Signs: Last Vital Signs Pulse 84 05/08/23 10:33 BP 141/93 H 05/08/23 10:33 BMI result Body Mass Index 29.9 Const General: cooperative, no acute distress, well developed and well groomed Nutritional Appearance: well nourished and overweight Orientation/consciousness: oriented to person, oriented to place and oriented to time Limitations: No language barrier HEENT Head: Yes normocephalic and Yes atraumatic Eyes General: appearance normal, both eyes and all related structures Pupils: Equal, round and reactive pupils present Neck Neck: Yes normal visual inspection and Yes no lymphadenopathy Thyroid: Thyroid normal Resp Effort & Inspection: normal respiratory effort and able to speak in complete sentences Auscultation: clear to auscultation bilaterally Cardio Rate: regular rate Rhythm: regular rhythm Heart sounds: Normal, physiologic split S2 sound present Peripheral pulses: radial pulses present and posterior tibial pulses present GI Inspection: No distended, No Abdominal panniculus present and Yes obesity Palpation (GI): Soft to palpation, nontender, no guarding, not rigid and No hepatosplenomegaly present Percussion: Yes normal to percussion Auscultation: Hyperactive bowel sounds present Rectal Exam - Male: Yes deferred Skin General skin exam: no rashes or lesions noted, turgor normal, skin not dry, no jaundice, No spider nevi and no striae Rashes: no rashes Nails: normal Neuro General: oriented to person, oriented to place and oriented to time Cranial nerves: Yes Equal, round and reactive pupils present and Yes Normal hearing present Speech: No Abnormal speech present Extrem General: Yes normal to inspection, No clubbing, No cyanosis and No edema Psych Appearance: grossly normal and well kempt Mental Status: mental status grossly normal Speech and movement: Normal speech and movement present Affect: normal affect Attitude: cooperative Thought process: Normal thought process present and not confabulating Thought content: Normal thought content present Insight: Limited insight present (Psych) Judgement: Limited judgement present (Psych) Assessment & Plan Assessment & Plan (1) Tubular adenoma of colon: Comment: 2013 colonoscopy at [facility] Code(s): D12.6 - Benign neoplasm of colon, unspecified (2) Pre-op examination: Code(s): Z01.818 - Encounter for other preprocedural examination (3) Diarrhea: Code(s): R19.7 - Diarrhea, unspecified (4) Yonas's thyroiditis: Code(s): E06.3 - Autoimmune thyroiditis (5) Weight gain: Code(s): R63.5 - Abnormal weight gain Plan He tolerated his prior 2 scopes well. He has been having diarrhea recently for a few months with slow onset, prior BM's were 1-2 times a day and formed. He has fecal urgency. He is living in a new house with new stress, he has recently cut back on ETOH from the hard stuff to just beer. He can not ID any new medications introduced, preceding illness, or diet changes otherwise. His lisinopril was recently increased and his newest med is HCTZ. No abd pain. He has occasional nausea in the AM. He has gained wt recently. 60# over past year. TSH creeping up. There are no prior problems with anesthesia or sedation. He denies any cardiac or respiratory problems. NO ID problems. He had a TA on prior scope and he does not know his FHX well. Return office visit in 4 weeks to go over his labs and determine any C2 treatment for his GI symptoms. Orders: Orders C Reactive Protein 05/08/23 R19.7 - Diarrhea, unspecified, E06.3 - Autoimmune thyroiditis, R63.5 - Abnormal weight gain Transglutaminase IgA 05/08/23 R19.7 - Diarrhea, unspecified, E06.3 - Autoimmune thyroiditis, R63.5 - Abnormal weight gain Colonoscopy - GI Use Only 05/08/23 R19.7 - Diarrhea, unspecified, E06.3 - Autoimmune thyroiditis, R63.5 - Abnormal weight gain Transglutaminase Ab IgG 05/08/23 R19.7 - Diarrhea, unspecified, E06.3 - Autoimmune thyroiditis, R63.5 - Abnormal weight gain TSH reflex Free T4 05/08/23 R19.7 - Diarrhea, unspecified, E06.3 - Autoimmune thyroiditis, R63.5 - Abnormal weight gain Rast Allergen 05/08/23 R19.7 - Diarrhea, unspecified, E06.3 - Autoimmune thyroiditis, R63.5 - Abnormal weight gain Thyroid Peroxidase Antibodies 05/08/23 R63.5 - Abnormal weight gain, E06.3 - Autoimmune thyroiditis Medications: New bisacodyl (Dulcolax (bisacodyl)) 10 mg (2 x 5 mg) PO BEDTIME 4 tabs 0RF 2 days peg 3350-electrolytes 236-22.74-6.74 -5.86 gram (Golytely) until fecal effluent is clear; do not exceed a total volume of 2,000 mL 240 mL PO Q10M 4,000 mL 0RF 1 day Z12.11 - Encounter for screening for malignant neoplasm of colon Coding Level of Care Code New Pt Level 3 (88882) Diagnoses Tubular adenoma of colon D12.6 Pre-op examination Z01.818 Diarrhea R19.7 Yonas's thyroiditis E06.3 Weight gain R63.5
[2023-05-08 10:33] VITALS: BP 141/93; PULSE 84; BMI 29.9
== END 2023-05-08 11:22 | disposition home or self-care (01) ==
PROVIDERS: PCP Nurse Practitioner Family; Visit Provider Nurse Practitioner
DX: D12.6 Benign neoplasm of colon, unspecified (principal); Z01.818 Encounter for other preprocedural examination; R19.7 Diarrhea, unspecified; E06.3 Autoimmune thyroiditis; R63.5 Abnormal weight gain
CPT/HCPCS: 99203

== ENCOUNTER 2023-06-11 09:55 | Outpatient (AMB) | payer OTHER, SELFPAY ==
--- NOTE | 2023-06-11 09:58 | A.OFFVIS_ITS ---
Intake Vital Signs 06/11/23 09:59 Height 6 ft Weight 226 lb 10.163 oz BMI 30.7 BP 125/75 Blood Pressure Location Lt brachial Position Sitting Pulse 78 Intake Visit Reasons: Diarrhea follow up 4 weeks Allergies No Known Allergies Allergy (Verified 06/11/23 10:00) HPI Diarrhea follow up 4 weeks HPI Details Assessment & Plan (1) Tubular adenoma of colon: Comment: 2013 colonoscopy at [facility] Code(s): D12.6 - Benign neoplasm of colon, unspecified (2) Pre-op examination: Code(s): Z01.818 - Encounter for other preprocedural examination (3) Diarrhea: Code(s): R19.7 - Diarrhea, unspecified (4) Yonas's thyroiditis: Code(s): E06.3 - Autoimmune thyroiditis (5) Weight gain: Code(s): R63.5 - Abnormal weight gain Plan He tolerated his prior 2 scopes well. He has been having diarrhea recently for a few months with slow onset, prior BM's were 1-2 times a day and formed. He has fecal urgency. He is living in a new house with new stress, he has recently cut back on ETOH from the hard stuff to just beer. He can not ID any new medications introduced, preceding illness, or diet changes otherwise. His lisinopril was recently increased and his newest med is HCTZ. No abd pain. He has occasional nausea in the AM. He has gained wt recently. 60# over past year. TSH creeping up. There are no prior problems with anesthesia or sedation. He denies any cardiac or respiratory problems. NO ID problems. He had a TA on prior scope and he does not know his FHX well. Return office visit in 4 weeks to go over his labs and determine any C2 treatment for his GI symptoms. Orders: Orders C Reactive Protein 05/08/23 R19.7 - Diarrhea, unspecified, E06.3 - Autoimmune thyr oiditis, R63.5 - A bnormal weight gai n Transglutaminase I gA 05/08/23 R19.7 - Diarrhea, unspecified, E06.3 - Autoimmune thyr oiditis, R63.5 - A bnormal weight gai n Colonoscopy - GI U se Only 05/08/23 R19.7 - Diarrhea, unspecified, E06.3 - Autoimmune thyr oiditis, R63.5 - A bnormal weight gai n Transglutaminase A b IgG 05/08/23 R19.7 - Diarrhea, unspecified, E06.3 - Autoimmune thyr oiditis, R63.5 - A bnormal weight gai n TSH reflex Free T4 05/08/23 R19.7 - Diarrhea, unspecified, E06.3 - Autoimmune thyr oiditis, R63.5 - A bnormal weight gai n Rast Allergen 05/08/23 R19.7 - Diarrhea, unspecified, E06.3 - Autoimmune thyr oiditis, R63.5 - A bnormal weight gai n Thyroid Peroxidase Antibodies 05/08/23 R63.5 - Abnormal w eight gain, E06.3 - Autoimmune thyro iditis Medications: New bisacodyl (Dulcola x (bisacodyl)) 10 mg (2 x 5 mg) P O BEDTIME 4 tabs 0 RF 2 days peg 3350-electroly jb 236-22.74-6.74 -5.86 gram (Golyt germaine) until feca l effluent is kylie r; do not exceed a total volume of 2 ,000 mL 240 mL PO Q10M 4,0 00 mL 0RF 1 day Z12.11 - Encounter for screening for malignant neoplas m of colon LABS: Laboratory Tests 05/08/23 11:42 C-Reactive Protein 0.33 TSH 2.37 Tiss Transglutamin IgG <1.0 Tiss Transglutamin IgA <1.0 Thyroid Peroxidase Ab 1 RAST panel does not show any significant food allergies COLONOSCOPY Scheduled fro 08/18 BIOPSY TODAY'S VISIT We review all the labs and we can not see any severe pathology or food allergies that seem to be contributing to the diarrhea. At this point I think it is safe to do a trial of medication to help him as we await the colonoscopy to make sure there is nothing like microscopic colitis. I will put him on loperamide and instructed him how to use this. We also discussed FODMAP because as a difference between having a food allergy and not being able to process certain foods well. This can drive gas bloating and diarrhea and I give him the diet to see if he can find any triggers on his own. We also discussed the role of psychogenic factors which are extremely difficult to tease out. Return office visit in 8 weeks [facility] Medical History (Updated 06/11/23 @ 10:03 by SHYAM Boyce) Pre-op examination Hematoma of nasal septum Physical exam Screening for colon cancer Surgical History Hx of tonsillectomy H/O colonoscopy Previous back surgery Family History Mother Substance use disorder Mental health disorder Father Mental health disorder Maternal Grandmother Mental health disorder Maternal Uncle Mental health disorder Maternal Grandfather Skin cancer Maternal Uncle Cancer Maternal Aunt Breast cancer Social History Housing: House Patient Tobacco Use Status: Former Tobacco user Years Smoked: quit over 10years ago e-Cigarette/Vaping Use: Never Used Second Hand Smoke Exposure: No service: No Current occupational status: unemployed Cognitive needs: No Hearing needs: No Vision needs: No Review of Systems Const Denies fatigue, Denies fever(s), Denies night sweats, Denies poor appetite and Denies weight loss ENT Reports Normal hearing present, Denies dental pain, Denies dysphagia, Denies hearing loss, Denies mouth pain, Denies odynophagia, Denies throat swelling, Denies tongue swelling and Reports other (Dentition adequate) Card Reports no additional complaints Resp Reports no additional complaints GI Details: Denies abdominal pain, Denies melena, Denies bloating, Denies hematochezia, Denies constipation, Denies GI cramping, Denies dysphagia, Denies excessive flatus, Denies early satiety, Denies heartburn, Reports diarrhea, Denies nausea, Denies odynophagia, Denies vomiting and Denies hematemesis Skin/Breast Denies pruritus, Denies lesions, Denies rash and Denies jaundice Neuro Reports Normal hearing present and Denies Abnormal speech present Endo Denies fatigue Aller/Immun Denies throat swelling and Denies tongue swelling Physical Exam Vital Signs: Last Vital Signs Pulse 78 06/11/23 09:59 BP 125/75 06/11/23 09:59 BMI result Body Mass Index 30.7 Const General: cooperative, no acute distress, well developed and well groomed Nutritional Appearance: well nourished and obese Orientation/consciousness: oriented to person, oriented to place and oriented to time Limitations: No language barrier HEENT Head: Yes normocephalic and Yes atraumatic Eyes General: appearance normal, both eyes and all related structures Pupils: Equal, round and reactive pupils present Neck Neck: Yes normal visual inspection and Yes no lymphadenopathy Thyroid: Thyroid normal Resp Effort & Inspection: normal respiratory effort and able to speak in complete sentences Auscultation: clear to auscultation bilaterally Cardio Rate: regular rate Rhythm: regular rhythm Heart sounds: Normal, physiologic split S2 sound present Peripheral pulses: radial pulses present and posterior tibial pulses present GI Inspection: No distended, No Abdominal panniculus present and Yes obesity Palpation (GI): Soft to palpation, nontender, no guarding, not rigid and No hepatosplenomegaly present Percussion: Yes normal to percussion Auscultation: normal bowel sounds Rectal Exam - Male: Yes deferred Skin General skin exam: no rashes or lesions noted, turgor normal, skin not dry, no jaundice, No spider nevi and no striae Rashes: no rashes Nails: normal Neuro General: oriented to person, oriented to place and oriented to time Cranial nerves: Yes Equal, round and reactive pupils present and Yes Normal hearing present Speech: No Abnormal speech present Extrem General: Yes normal to inspection, No clubbing, No cyanosis and No edema Psych Appearance: grossly normal and well kempt Mental Status: mental status grossly normal Speech and movement: Normal speech and movement present Affect: normal affect Attitude: cooperative Thought process: Normal thought process present and not confabulating Thought content: Normal thought content present Insight: Limited insight present (Psych) Judgement: Limited judgement present (Psych) Results Reviewed Results Reviewed: Laboratory Tests 05/08/23 11:42 C-Reactive Protein 0.33 TSH 2.37 Tiss Transglutamin IgG <1.0 Tiss Transglutamin IgA <1.0 Thyroid Peroxidase Ab 1 RAST panel does not show any significant food allergies Assessment & Plan Assessment & Plan (1) Diarrhea: Code(s): R19.7 - Diarrhea, unspecified Plan We review all the labs and we can not see any severe pathology or food allergies that seem to be contributing to the diarrhea. At this point I think it is safe to do a trial of medication to help him as we await the colonoscopy to make sure there is nothing like microscopic colitis. I will put him on loperamide and instructed him how to use this. We also discussed FODMAP because as a difference between having a food allergy and not being able to process certain foods well. This can drive gas bloating and diarrhea and I give him the diet to see if he can find any triggers on his own. We also discussed the role of psychogenic factors which are extremely difficult to tease out. Return office visit in 8 weeks Medications: New loperamide (Imodium A-D) 2 mg PO QID PRN 90 tabs 3RF loose stool R19.7 - Diarrhea, unspecified Coding Level of Care Code Est Pt Level 3 (44282) Diagnoses Diarrhea R19.7
[2023-06-11 09:59] VITALS: BP 125/75; PULSE 78; BMI 30.7
--- NOTE | 2023-06-11 09:59 | MHC.OFFVIS ---
Intake Vital Signs 06/11/23 09:59 Height 6 ft Weight 226 lb 10.163 oz BMI 30.7 BP 125/75 Blood Pressure Location Lt brachial Position Sitting Pulse 78 Intake Visit Reasons: Diarrhea follow up 4 weeks Intake Note: Cuate returns to in office follow up of diarrhea and labs. CC: Patient continues to have diarrhea and abdominal bloating. Denies other GI symptoms today. 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 Accompanied by: Self / Same As Patient Allergies No Known Allergies Allergy (Verified 06/11/23 10:00) PFSH Medical History Hematoma of nasal septum Surgical History Hx of tonsillectomy H/O colonoscopy Previous back surgery Family History Mother Substance use disorder Mental health disorder Father Mental health disorder Maternal Grandmother Mental health disorder Maternal Uncle Mental health disorder Maternal Grandfather Skin cancer Maternal Uncle Cancer Maternal Aunt Breast cancer Social History Housing: House Patient Tobacco Use Status: Former Tobacco user Years Smoked: quit over 10years ago e-Cigarette/Vaping Use: Never Used Second Hand Smoke Exposure: No service: No Current occupational status: unemployed Cognitive needs: No Hearing needs: No Vision needs: No Coding
== END 2023-06-11 10:27 | disposition home or self-care (01) ==
PROVIDERS: PCP Nurse Practitioner Family; Visit Provider Nurse Practitioner
DX: R19.7 Diarrhea, unspecified (principal)
CPT/HCPCS: 99213

== ENCOUNTER → 2023-06-11 09:55 | Outpatient (BNVA) | payer OTHER, SELFPAY | PROVIDERS: PCP Nurse Practitioner Family; Visit Provider Nurse Practitioner ==

== ENCOUNTER 2023-06-27 13:07 | Inpatient (IN) | payer OTHER, SELFPAY ==
[2023-06-27] VITALS (8 sets, daily range): BP systolic 110–127; BP diastolic 70–88; PULSE 66–108; RESP 14–22; TEMP 36.6–36.9; O2SAT 95–98; BMI 31.2
--- NOTE | 2023-06-27 | ECG_ITS ---
Test Reason : CP Blood Pressure : / mmHG Vent. Rate : 084 BPM Atrial Rate : 084 BPM P-R Int : 164 ms QRS Dur : 094 ms QT Int : 380 ms P-R-T Axes : 051 011 040 degrees QTc Int : 449 ms Normal sinus rhythm Normal ECG No previous ECGs available Referred By: Generic ED Physician Electronically Signed By:JEANINE MEZA
--- NOTE | ~2023-06-27 | XR_ITS ---
EXAMINATION: XR chest 2V CLINICAL INFORMATION: Chest pain COMPARISON: February 2016 TECHNIQUE: XR chest 2V, 2 Views Lungs and Yue: Both lungs are clear. Pleura: Normal. Costophrenic angles are sharp. No pneumothorax. Heart: The heart is normal in size. Mediastinum: The mediastinum is within normal limits.. Bones: Skeletal structures included are normal for patient's age. XR/XR chest 2V IMPRESSION: No radiographic evidence of acute cardiopulmonary disease.
--- NOTE | ~2023-06-27 | CT_ITS ---
EXAMINATION: CT ABDOMEN AND PELVIS WITHOUT CONTRAST CLINICAL INFORMATION: Reproducible right upper quadrant pain COMPARISON: None available. TECHNIQUE: Multidetector volumetric imaging was performed from the superior aspect of the liver through the pubic symphysis. Sagittal and coronal reformatted images were obtained on the technologist's workstation. This CT examination was performed using dose optimization techniques as appropriate, variously including the following: *Automated exposure control *Adjustment of mA and/or kV according to patient size (this includes techniques or standardized protocols for targeted exams where dose is matched to indication/reason for exam; i.e. extremities or head) *Use of iterative reconstruction technique DLP: 725 mGy-cm FINDINGS: LUNG BASES: The visualized lung bases are unremarkable. LIVER, GALLBLADDER, AND BILIARY TREE: The liver is prominent in size. Diffuse hepatic steatosis. The gallbladder is unremarkable with no evidence of radiopaque gallstones, gallbladder wall thickening, or obvious pericholecystic inflammatory changes. PANCREAS: Unremarkable. SPLEEN: Unremarkable. ADRENAL GLANDS: Unremarkable. KIDNEYS AND URETERS: The kidneys are normal in size, shape, and attenuation. No hydronephrosis, hydroureter, or calculi seen. No perinephric stranding. BLADDER: Unremarkable. GASTROINTESTINAL TRACT: Mild inflammatory fat stranding around the second portion of the duodenum. Preservation of the intrapancreatic fat in the adjacent pancreas. ABDOMINAL WALL: No significant hernia is appreciated. LYMPH NODES: Mild colonic diverticulosis without diverticulitis. The large and small bowel are normal in caliber. VASCULAR: Unremarkable. PELVIC VISCERA: Unremarkable. OSSEOUS STRUCTURES: Unremarkable. CT/CT abdomen pelvis wo IV con IMPRESSION: 1. Inflammatory fat stranding around the second portion of the duodenum that does not appear to involve the adjacent pancreatic head. This is favored to be secondary to duodenitis or duodenal ulcer. Recommend correlation with pancreatic enzymes to exclude groove pancreatitis. 2. Prominent liver and diffuse hepatic steatosis. Fleischner guidelines were followed.
--- NOTE | ~2023-06-27 | US_ITS ---
EXAMINATION: US ABDOMEN LIMITED CLINICAL INFORMATION: Right upper quadrant pain, rule out cholecystitis. COMPARISON: Abdominal ultrasound 04/03/2021 TECHNIQUE: Real-time imaging of the right upper quadrant abdominal viscera. FINDINGS: PANCREAS: Normal. LIVER: The liver is normal in size. The liver contour is normal. There is diffuse increased liver parenchymal echogenicity, consistent with hepatic steatosis. No focal hepatic lesion. There is no intrahepatic biliary duct dilatation seen. GALLBLADDER: Normal. The gallbladder is physiologically distended without evidence of stones, sludge, polyps, wall thickening or pericholecystic fluid. COMMON BILE DUCT: Normal in caliber measuring 0.3 cm in diameter. RIGHT KIDNEY: Normal. No hydronephrosis. No renal calculi or focal parenchymal lesions. The kidney measures 10.9 cm in maximum dimension. FREE FLUID: None. US/US abdomen limited IMPRESSION: Hepatic steatosis, otherwise unremarkable right upper quadrant ultrasound.
--- NOTE | 2023-06-27 13:23 | ED.CHESTPAIN ---
HPI - Chest Pain General Chief Complaint: Chest Pain Stated Complaint: chest pain Time Seen by Provider: 06/27/23 14:31 Source: patient, family, RN notes reviewed and old records reviewed Mode of arrival: ambulatory Limitations: no limitations History of Present Illness HPI narrative: 47-year-old male with pmhx significant for hypertension and anxiety presents to the ED today for evaluation left-sided chest pain that began last night. States that he was lying down at onset of symptoms. Describes this as a sharp pain that lasts approximately 1 second before resolving for a few minutes. There has been a constant pressure sensation to his left chest and the sharp pain has been intermittent. Endorses associated nausea without vomiting and diaphoresis. Admits pain began after eating dinner last night. Taking TUMS at home without relief. Denies headache, dizziness, palpitations, shortness of breath, dyspnea. Denies recent travel or long car rides. Denies cardiac history or history of VTE. Related Data Home Medications ?Medication ?Instructions ?Recorded ?Confirmed dextroamphetamine-amphetamine 20 1 tab PO BID@0900,1500 11/25/21 06/28/23 mg tablet lorazepam 1 mg tablet 1 mg PO DAILY PRN anxiety 11/25/21 06/28/23 Previous Rx's ?Medication ?Instructions ?Recorded gabapentin 600 mg tablet 600 mg PO TID 30 days #90 tabs 10/27/21 amlodipine 5 mg tablet 5 mg PO DAILY #90 tabs 02/21/23 hydrochlorothiazide 12.5 mg tablet 12.5 mg PO DAILY #90 tabs 05/28/23 lisinopril 40 mg tablet 40 mg PO DAILY #90 tabs 06/03/23 loperamide 2 mg tablet (Imodium 2 mg PO QID PRN loose stool #90 06/11/23 A-D) tabs Allergies Allergy/AdvReac Type Severity Reaction Status Date / Time No Known Allergies Allergy Verified 06/27/23 13:26 Review of Systems Review of Systems: Constitutional: No fever, chills, fatigue, night sweats, weight changes ENT/Mouth: No ear pain, hearing loss, nasal congestion, sinus pain, rhinorrhea, sore throat Eyes: No eye pain, swelling, redness, vision changes, discharge Cardio: No chest pain, palpitations, PRATT, orthopnea, peripheral edema, +chest pain Pulm: No SOB, cough, sputum, wheezing, dyspnea, hemoptysis GI: No nausea, vomiting, hematemesis, abdominal pain, diarrhea, constipation, hematochezia, melena : No irregular bleeding, dysuria, frequency, urgency, hesitancy, hematuria, flank pain, urinary flow changes, urinary incontinence or retention MSK: No back pain, neck pain, joint pain, myalgias Skin: No lesions, rashes Neuro: No weakness, numbness, paresthesias, LOC, dizziness, headache Psych: No anxiety/panic, depression, SI/HI, AH/VH All other systems reviewed and are negative. [facility] Past Medical History Attestation statement: The following information was validated with the patient. Source: old records reviewed and nursing notes reviewed Medical History Pre-op examination Hematoma of nasal septum Physical exam Screening for colon cancer Surgical History Hx of tonsillectomy H/O colonoscopy Previous back surgery Family History Family History Mother Substance use disorder Mental health disorder Father Mental health disorder Maternal Grandmother Mental health disorder Maternal Uncle Mental health disorder Maternal Grandfather Skin cancer Maternal Uncle Cancer Maternal Aunt Breast cancer Social History Social History Household Members: Family Housing: House Do you presently have visiting nurse or other home services: No Patient Tobacco Use Status: Former Tobacco user Years Smoked: quit over 10years ago Smoked in Last 30 Days: No e-Cigarette/Vaping Use: Never Used Second Hand Smoke Exposure: No Use of substances other than those prescribed or required for medical reasons: No Substance Use Type: Marijuana Substance Use Frequency: Daily Currently Displaying Signs/Symptoms of Drug Intoxication Withdrawal: No Have you been hit, kicked, punched, or otherwise hurt by someone within the past year? If so, by whom?: No Do you feel safe in your current relationship?: Yes Is there a partner from a previous relationship who is making you feel unsafe now?: No Are you made to feel afraid or neglected: No Advance Directives: No Do you have thoughts of harming others: None Do you have a plan to hurt others: No Plan Recently lost weight without trying: No Eating poorly because of decreased appetite: No Nutrition Risks: No Nutritional Risk service: No Current occupational status: unemployed Cognitive needs: No Hearing needs: No Vision needs: No Physical Exam Vital Signs: Vital Signs: Last Vital Signs Temp 96.9 F 06/28/23 15:51 Pulse 80 06/28/23 15:51 Resp 18 06/28/23 15:51 BP 124/81 06/28/23 15:51 Pulse Ox 93 06/28/23 15:51 O2 Del Method Room Air 06/28/23 15:51 BMI result Body Mass Index 31.2 Vital signs stable Const: Other: Patient in obvious discomfort secondary to pain General: cooperative, healthy appearing and no acute distress Orientation/consciousness: patient oriented x3 Limitations: no limitations HEENT: Head: Yes normal to inspection, Yes No palpable skull fracture present, Yes normocephalic and Yes atraumatic Eyes: General: appearance normal, both eyes and all related structures Conjunctivae: conjunctivae normal Sclerae: sclerae normal Pupils: Equal, round and reactive pupils present Neck: Neck: Yes normal visual inspection, Yes full ROM and Yes no lymphadenopathy Chest: Chest palpation & inspection: normal inspection of the chest and normal palpation of entire chest wall Resp: Effort & Inspection: normal respiratory effort and able to speak in complete sentences Auscultation: clear to auscultation bilaterally Cardio: Jugular venous distension: no JVD Rate: regular rate Rhythm: regular rhythm GI: Other: + abdomen soft, nondistended, exquisitely tender to palpation of the right upper quadrant. Positive Harmon's sign. Normoactive bowel sounds x4. Inspection: Yes normal to inspection : General: Yes no CVA tenderness Back/Spine/Pelvis: Back: no CVA tenderness Skin: General skin exam: no rashes or lesions noted Neuro: General: patient oriented x3 and gait normal Cranial nerves: Yes Equal, round and reactive pupils present Extrem: General: Yes normal to inspection and Yes capillary refill normal Course Course Course Narrative: This is a rapid medical exam. Deferred additional HPI, PE, ROS to primary provider. 47 yo male with history of HTN here with complaints of intermittent chest pain, dizziness, diaphoresis since last evening. Per family blood pressure was low at home. WIll obtain labs, EKG, CXR VSS Reevaluation(s) Reevaluation #1: 1529-- CBC without leukocytosis or left shift. Chemistry without acute electrolyte abnormality requiring intervention. POC glucose 120. AST and ALT elevated. Troponin undetectable, will repeat for delta. EKG showing normal sinus rhythm at a rate of 84 beats per minute, QT 380, QTC 449, no acute ischemic changes or ST elevations. Lipase and TSH pending. > patient reports no improvement in pain with Toradol. based off physical exam, concern for cholecystitis. Right upper quadrant ultrasound and GI cocktail ordered. 1622- lipase WNL at 36. Unlikely pancreatitis. TSH WNL at 2.76. Awaiting right upper quadrant ultrasound read. 1643-- right upper quadrant ultrasound does not demonstrate acute conchita. It does however show hepatic steatosis correlating with elevated liver enzymes. Given patient has exquisite reproducible tenderness, CT abdomen/pelvis ordered. > patient stable at the end of my shift. Sign-out given to my colleague, Dasha FARIAS pending CT scan abdomen/pelvis and disposition. Reevaluation #2: Sign-out was given to me by my colleague pending CT scan. CT scan shows possible duodenal ulcer vs duodenitis. Patient appears very uncomfortable, morphine IV ordered, as well as IV Protonix. Discussed case with my attending physician, Dr. Riley, given level of pain, patient may need hospital admission. Discussed this with patient and at bedside who understand and agree with this plan. Time: 18:06 Reevaluation #3: Patient re-evaluated by me, 2nd troponin unremarkable. He is in significant amount of pain despite morphine, Dilaudid 0.5 mg IV ordered. We will attempt to admit for intractable pain and duodenitis. Patient is agreeable to hospitalization. Time: 19:42 Medications Administered Generic Name Dose Route Start Last Admin Trade Name Freq PRN Reason Stop Dose Admin Gabapentin 600 mg 06/28/23 15:00 06/28/23 15:30 Gabapentin 600 Mg Tablet PO 600 mg TID BRETT Administration Gemfibrozil 600 mg 06/28/23 16:30 06/28/23 15:36 Gemfibrozil 600 Mg Tablet PO 600 mg BIDAC BRETT Administration Hydromorphone HCl 1.5 mg 06/28/23 05:47 06/28/23 15:30 Hydromorphone Hcl 1 Mg/Ml Syringe IVPUSH 1.5 mg Q3H PRN Administration Pain, Severe (Pain Scale 7-10) Protocol Lactated Ringer's 1,000 mls @ 100 mls/hr 06/27/23 21:45 06/28/23 15:37 Lr IVCONT 100 mls/hr .Q10H BRETT Administration Ondansetron HCl 4 mg 06/27/23 21:13 06/28/23 11:44 Ondansetron Hcl 4 Mg/2 Ml Vial IVPUSH 4 mg Q8H PRN Administration Nausea and Vomiting Pantoprazole Sodium 40 mg 06/28/23 06:30 06/28/23 15:30 Pantoprazole Sodium 40 Mg/10 Ml Vial IVPUSH 40 mg BID@0630,1630 BRETT Administration Sodium Chloride 3 ml 06/28/23 00:00 06/28/23 15:23 0.9 % Sodium Chloride Flush 3 Ml Syringe IVFLUSH Not Given QSHIFT BRETT Discontinued Medications Generic Name Dose Route Start Last Admin Trade Name Freq PRN Reason Stop Dose Admin Al Hydroxide/Mg Hydroxide 30 ml 06/27/23 15:28 06/27/23 15:39 Magnesium Hydrox/Alum Hydrox 30 Ml Oral.Susp PO 06/27/23 15:29 30 ml ONCE ONE Administration Al Hydroxide/Mg Hydroxide 30 ml 06/28/23 06:04 06/28/23 06:25 Magnesium Hydrox/Alum Hydrox 30 Ml Oral.Susp PO 06/28/23 06:05 30 ml ONCE STA Administration Belladonna Alkaloids/Phenobarbital 10 ml 06/27/23 15:28 06/27/23 15:39 Phenobarb/Hyoscy/Atropine/Scop 10 Ml Elixir PO 06/27/23 15:29 10 ml ONCE ONE Administration Hydromorphone HCl 0.5 mg 06/27/23 19:38 06/27/23 20:09 Hydromorphone Hcl 0.5 Mg/0.5 Ml Syringe IVPUSH 06/27/23 19:39 0.5 mg ONCE ONE Administration Protocol Hydromorphone HCl 1 mg 06/28/23 01:58 06/28/23 03:16 Hydromorphone Hcl 1 Mg/Ml Syringe IVPUSH 1 mg Q4H PRN Administration Pain, Severe (Pain Scale 7-10) Protocol Ketorolac Tromethamine 30 mg 06/27/23 14:31 06/27/23 14:37 Ketorolac Tromethamine 30 Mg/Ml Vial IM 06/27/23 14:32 30 mg ONCE ONE Administration Lorazepam 1 mg 06/28/23 05:52 06/28/23 06:04 Lorazepam 2 Mg/Ml Vial IVPUSH 06/28/23 05:53 1 mg STAT STA Administration Morphine Sulfate 4 mg 06/27/23 18:03 06/27/23 18:11 Morphine Sulfate 4 Mg/Ml Cartridge IVPUSH 06/27/23 18:04 4 mg ONCE ONE Administration Protocol Morphine Sulfate 4 mg 06/27/23 21:45 06/27/23 22:58 Morphine Sulfate 4 Mg/Ml Cartridge IVPUSH 4 mg Q4H PRN Administration Pain, Severe (Pain Scale 7-10) Protocol Ondansetron HCl 4 mg 06/27/23 15:28 06/27/23 15:39 Ondansetron Hcl 4 Mg/2 Ml Vial IVPUSH 06/27/23 15:29 4 mg ONCE ONE Administration Pantoprazole Sodium 40 mg 06/27/23 18:03 06/27/23 18:11 Pantoprazole Sodium 40 Mg/10 Ml Vial IVPUSH 06/27/23 18:04 40 mg ONCE ONE Administration Pantoprazole Sodium 40 mg 06/28/23 06:03 06/28/23 06:25 Pantoprazole Sodium 40 Mg/10 Ml Vial IVPUSH 06/28/23 06:04 40 mg ONCE ONE Administration Medical Decision Making Medical Decision Making MDM Narrative: 47-year-old male with pmhx significant for hypertension and anxiety presents to the ED today for evaluation left-sided chest pain that began last night. Vital signs stable. Patient is nontoxic appearing in no acute distress. Afebrile. Not hypoxic. Patient in obvious discomfort. RRR. Lungs are CTA bilaterally. No peripheral edema or JVD. On examination, there is reproducible tenderness noted to the right upper quadrant, concern for intra-abdominal pathology rather than cardiac. Positive harmon sign. Normoactive bowel sounds x4. No rashes. No calf tenderness bilaterally. Differential diagnosis includes arrhythmia, ACS, anxiety, pleuritis, costochondritis, pneumonia, biliary colic, cholelithiasis, choledocholithiasis, hypothyroid. Lower suspicion for cholangitis, pancreatitis, appendicitis, gastroenteritis. Labs, EKG, trop, viral serology, chest x-ray ordered prior to my assumption of care. Will add on right upper quadrant ultrasound, lipase, TSH and GI cocktail. Differential Diagnosis Differential Diagnoses: The differential diagnosis associated with the presentation includes As above Admission/Observation Consideration of admission/observation: Escalation of care including admission/observation considered patient to be admitted to medicine. Consult Healthcare Provider Management of the patient was discussed with: Hospitalist Lab Data MDM Lab Attestation statement: I reviewed the patient's lab results. As above 06/28/23 06:07 06/28/23 06:07 Labs: Lab Results 06/27/23 06/27/23 06/27/23 Range/Units 13:44 13:45 18:08 WBC 7.3 (4.8-10.8) X10*3/uL RBC 4.73 (4.60-5.80) X10*6/uL Hgb 15.7 (14.0-18.0) g/dl Hct 43.3 (42.0-52.0) % MCV 91.5 (80.0-98.0) fL MCH 33.2 H (27.0-33.0) pg MCHC 36.3 H (31.0-36.0) g/dl RDW 11.9 (11.0-16.0) % Plt Count 331 (160-400) X10*3/uL MPV 8.4 L (9.4-12.4) fL Immature Gran % (Auto) 0.1 (0.0-0.4) % Neut % (Auto) 57.9 (45-73) % Lymph % (Auto) 29.4 (20-40) % [place] % (Auto) 10.8 (2-11) % Eos % (Auto) 1.2 (0-4) % Baso % (Auto) 0.6 (0-2) % Lymph # (Auto) 2.1 (1.2-4.9) X10*3/uL [place] # (Auto) 0.8 (0.1-1.2) X10*3/uL Eos # (Auto) 0.1 (0.0-0.4) X10*3/uL Baso # (Auto) 0.0 (0.0-0.2) X10*3/uL Abs Immat Gran (auto) 0.01 (0.00-0.03) X10*3/uL Absolute Neuts (auto) 4.2 (2.0-8.3) x10*3/uL Absolute Nucleated RBC 0.000 (0.0-0.012) X10*3/uL Nucleated RBC % (auto) 0.0 (0.0-0.2) /100WBC PT 12.6 (11.1-13.3) SEC INR 1.0 (0.9-1.1) Sodium 138 (135-145) mmol/L Potassium 3.7 (3.3-5.1) mmol/L Chloride 97 (96-108) mmol/L Carbon Dioxide 25 (22-29) mmol/L Anion Gap 20 (12-20) BUN 16 (9-16) mg/dL Creatinine 0.99 (0.5-1.4) mg/dL Estim Creat Clear Calc 117.6 Estimated GFR > 60 POC Glucose 120 H (60-115) mg/dL Random Glucose 115 (60-115) mg/dL Calcium 9.8 D (8.4-10.2) mg/dL Magnesium 1.9 (1.6-2.6) mg/dL Total Bilirubin 0.6 (0.0-1.0) mg/dL Direct Bilirubin 0.2 (0.0-0.5) mg/dL AST 39 H (5-37) U/L ALT 41 H (0-40) U/L Alkaline Phosphatase 57 (39-117) U/L Troponin I High Sens < 2.7 < 2.7 (<3.5-35.0) ng/L Total Protein 7.6 (6.5-8.0) g/dL Albumin 4.4 (3.5-5.0) g/dL Lipase 36 (8-78) U/L TSH 2.76 (0.32-4.0) uIU/mL Independent Interpretation I performed an independent interpretation of an: EKG, Plain X-Ray, Ultrasound and CT Scan Interpretation: EKG showing normal sinus rhythm with a rate of 84 beats per minute, QT 380, QTC 449, no acute ischemic changes or ST elevations. No previous EKGs to compare to. Chest x-ray does not demonstrate infiltrate or consolidation, agree with radiologist's interpretation. Ultrasound of right upper quadrant does not demonstrate distended gallbladder, agree with radiologist's interpretation. CT scan abdomen/pelvis Radiology Impression Discussion of test interpretation with radiology: I have reviewed the radiologist's reading. Radiologist Impression: EXAMINATION: XR chest 2V CLINICAL INFORMATION: Chest pain COMPARISON: February 2016 TECHNIQUE: XR chest 2V, 2 Views Lungs and Yue: Both lungs are clear. Pleura: Normal. Costophrenic angles are sharp. No pneumothorax. Heart: The heart is normal in size. Mediastinum: The mediastinum is within normal limits.. Bones: Skeletal structures included are normal for patient's age. XR/XR chest 2V IMPRESSION: No radiographic evidence of acute cardiopulmonary disease. EXAMINATION: CT ABDOMEN AND PELVIS WITHOUT CONTRAST CLINICAL INFORMATION: Reproducible right upper quadrant pain COMPARISON: None available. TECHNIQUE: Multidetector volumetric imaging was performed from the superior aspect of the liver through the pubic symphysis. Sagittal and coronal reformatted images were obtained on the technologist's workstation. This CT examination was performed using dose optimization techniques as appropriate, variously including the following: *Automated exposure control *Adjustment of mA and/or kV according to patient size (this includes techniques or standardized protocols for targeted exams where dose is matched to indication/reason for exam; i.e. extremities or head) *Use of iterative reconstruction technique DLP: 725 mGy-cm FINDINGS: LUNG BASES: The visualized lung bases are unremarkable. LIVER, GALLBLADDER, AND BILIARY TREE: The liver is prominent in size. Diffuse hepatic steatosis. The gallbladder is unremarkable with no evidence of radiopaque gallstones, gallbladder wall thickening, or obvious pericholecystic inflammatory changes. PANCREAS: Unremarkable. SPLEEN: Unremarkable. ADRENAL GLANDS: Unremarkable. KIDNEYS AND URETERS: The kidneys are normal in size, shape, and attenuation. No hydronephrosis, hydroureter, or calculi seen. No perinephric stranding. BLADDER: Unremarkable. GASTROINTESTINAL TRACT: Mild inflammatory fat stranding around the second portion of the duodenum. Preservation of the intrapancreatic fat in the adjacent pancreas. ABDOMINAL WALL: No significant hernia is appreciated. LYMPH NODES: Mild colonic diverticulosis without diverticulitis. The large and small bowel are normal in caliber. VASCULAR: Unremarkable. PELVIC VISCERA: Unremarkable. OSSEOUS STRUCTURES: Unremarkable. CT/CT abdomen pelvis wo IV con IMPRESSION: 1. Inflammatory fat stranding around the second portion of the duodenum that does not appear to involve the adjacent pancreatic head. This is favored to be secondary to duodenitis or duodenal ulcer. Recommend correlation with pancreatic enzymes to exclude groove pancreatitis. 2. Prominent liver and diffuse hepatic steatosis. Fleischner guidelines were followed. EXAMINATION: US ABDOMEN LIMITED CLINICAL INFORMATION: Right upper quadrant pain, rule out cholecystitis. COMPARISON: Abdominal ultrasound 04/03/2021 TECHNIQUE: Real-time imaging of the right upper quadrant abdominal viscera. FINDINGS: PANCREAS: Normal. LIVER: The liver is normal in size. The liver contour is normal. There is diffuse increased liver parenchymal echogenicity, consistent with hepatic steatosis. No focal hepatic lesion. There is no intrahepatic biliary duct dilatation seen. GALLBLADDER: Normal. The gallbladder is physiologically distended without evidence of stones, sludge, polyps, wall thickening or pericholecystic fluid. COMMON BILE DUCT: Normal in caliber measuring 0.3 cm in diameter. RIGHT KIDNEY: Normal. No hydronephrosis. No renal calculi or focal parenchymal lesions. The kidney measures 10.9 cm in maximum dimension. FREE FLUID: None. US/US abdomen limited IMPRESSION: Hepatic steatosis, otherwise unremarkable right upper quadrant ultrasound. Independent Historian Clinical information obtained from an independent historian. History obtained from or confirmed by: Spouse External Record Review External record reviewed: Inpatient record, Office record, Outpatient record, Prior outpatient labs, Prior outpatient radiology, Primary care record and Outside ED record Prescription Management I considered prescription management with: Pain Medication Chronic Conditions Patient?s care impacted by: Hypertension Social Determinants Patient?s care significantly limited by Social Determinants of Health including: Other Social Determinant of Health Critical Care Time Critical Care Time Critical Care Time: Yes Total Critical Care Time: 45 Attestation: I have personally provided critical care time exclusive of time spent on separately billable procedures. Time includes review of lab data, radiology results, discussion with consultants, and monitoring for potential decompensation. Intervention performed as documented. Discharge Plan Discharge Clinical Impression: Chest pain, Duodenitis Patient Disposition: Admitted As Inpatient Interventions: Admission Worksheet (ED) Last Done: 06/28/23 02:19 Discharge Date/Time: 06/28/23 03:09
[2023-06-27 13:50] LABS: Glucose, Whole Blood 120 mg/dL (60-115)
[2023-06-27 13:53] LABS: MANUAL DIFF FLAG NO
--- NOTE | 2023-06-27 13:54 | PC.NURSE ---
Pt coming from home, reports chest pain starting sometime last night. Pt describes chest pain as pressure across his chest with periods of sharp pain. Pt reports similar episode years ago but none recent. Pt reports episodes of light-headed and dizziness since yesterday, with exertion, denies falls or LOC. Pt denies fever, SOB, cough, N/V/D, recent illnesses. Pt is alert and oriented, breathing even and unlabored, skin slightly clammy. Pt noted to be uncomfortable, pain 6/10. 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
[2023-06-27 13:55] LABS: Basophils Percent Auto 0.6 % (0-2); Eosinophils Absolute Auto 0.1 X10*3/uL (0.0-0.4); Eosinophils Percent Auto 1.2 % (0-4); Hematocrit 43.3 % (42.0-52.0); Hemoglobin 15.7 g/dl (14.0-18.0); Imm Gran Abs Auto 0.01 X10*3/uL (0.00-0.03); Imm Gran Pct Auto 0.1 % (0.0-0.4); Lymphocytes Absolute Auto 2.1 X10*3/uL (1.2-4.9); Lymphocytes Percent Auto 29.4 % (20-40); Mean Corpuscular HGB Conc 36.3 g/dl (31.0-36.0); Mean Corpuscular Hemoglobin 33.2 pg (27.0-33.0); Mean Corpuscular Volume 91.5 fL (80.0-98.0); Mean Platelet Volume 8.4 fL (9.4-12.4); Monocytes Absolute Auto 0.8 X10*3/uL (0.1-1.2); Monocytes Percent Auto 10.8 % (2-11); Neutrophils Absolute Auto 4.2 x10*3/uL (2.0-8.3); Neutrophils Percent Auto 57.9 % (45-73); Platelet Count 331 X10*3/uL (160-400); Red Blood Count 4.73 X10*6/uL (4.60-5.80); Red Cell Distribution Width 11.9 % (11.0-16.0); White Blood Count 7.3 X10*3/uL (4.8-10.8)
[2023-06-27 14:05] LABS: Prothrombin Time 12.6 SEC (11.1-13.3)
[2023-06-27 14:13] LABS: Alanine Aminotransferase 41 U/L (0-40); Albumin Level 4.4 g/dL (3.5-5.0); Alkaline Phosphatase 57 U/L (39-117); Anion Gap 20 (12-20); Aspartate Amino Transferase 39 U/L (5-37); Bilirubin Direct 0.2 mg/dL (0.0-0.5); Bilirubin Total 0.6 mg/dL (0.0-1.0); Blood Urea Nitrogen 16 mg/dL (9-16); Calcium 9.8 mg/dL (8.4-10.2); Carbon Dioxide 25 mmol/L (22-29); Chloride 97 mmol/L (96-108); Creatinine Clr Calc Pharmacy 117.6; Estimated Glomerular Filt Rate > 60; Glucose Random 115 mg/dL (60-115); Magnesium 1.9 mg/dL (1.6-2.6); Potassium 3.7 mmol/L (3.3-5.1); Sodium 138 mmol/L (135-145); Total Protein 7.6 g/dL (6.5-8.0)
[2023-06-27 14:33] LABS: Troponin-I High Sensitivity < 2.7 ng/L (<3.5-35.0)
[2023-06-27] MEDS: Ketorolac Tromethamine 30 MG/ML VIAL IM (14:37)
[2023-06-27] MEDS: ondansetron HCL 4 MG/2 ML VIAL IVPUSH (15:39)
[2023-06-27] MEDS: Magnesium Hydrox/Alum Hydrox 30 ML ORAL.SUSP PO (15:39)
[2023-06-27] MEDS: PHENobarb/Hyoscy/Atropine/Scop 10 ML ELIXIR PO (15:39)
[2023-06-27 16:11] LABS: Thyroid Stimulating Hormone 2.76 uIU/mL (0.32-4.0)
[2023-06-27 16:20] LABS: Lipase 36 U/L (8-78)
[2023-06-27] MEDS: Pantoprazole Sodium 40 MG/10 ML VIAL IVPUSH (18:11)
[2023-06-27] MEDS: Morphine Sulfate 4 MG/ML CARTRIDGE IVPUSH ×2 (18:11→22:58)
[2023-06-27 19:00] LABS: Troponin-I High Sensitivity < 2.7 ng/L (<3.5-35.0)
[2023-06-27] MEDS: HYDROmorphone HCl 0.5 MG/0.5 ML SYRINGE IVPUSH (20:09)
--- NOTE | 2023-06-27 20:15 | P.HPHOSP_ITS ---
History of Present Illness Date of Service: 06/27/23 Attending physician on admission: Arlet Patrick Chief Complaint: Epigastric pain Pt is a 47-year-old male with a PMH significant for HTN, anxiety, and alcohol dependence who presents to the ED for evaluation of intermittent severe epigastric pain since last night. Pt reports symptoms began while sitting and watching TV. States there is a constant pressure and intermittent sharp, stabbing pain in the epigastric region that wraps around to right side. Pain lasts few a few seconds then resolves but returns in 20-30 minutes. Reports the area is tender to the touch. Also complains of chronic non-bloody diarrhea for many months for which he sees GI and has planned outpatient colonoscopy. Denies any bright red blood or dark-colored stools. Pt has a long history of heavy alcohol use though reports recently cut back and now only drinks 4-5 beers nightly. Denies SOB. No fever, chills. In the ED pt was afebrile but tachycardic up to 108 and tachypneic up to 22. Labs were significant for mild transaminitis of AST 39 and ALT 41, otherwise grossly unremarkable. No leukocytosis. Stable H&H of 15.7/43.3. No significant electrolyte abnormalities. Renal function WNL. Lipase WNL at 36. Serial troponins negative. CXR showed no radiographic evidence of acute cardiopulmonary disease. CT of abdomen and pelvis found inflammatory fat stranding around the 2nd portion of duodenum that does not appear to involve the adjacent pancreatic head, favoring duodenitis or duodenal ulcer. Also found prominent liver and diffuse hepatic steatosis. Abdominal ultrasound found hepatic steatosis, otherwise unremarkable RUQ exam. EKG demonstrated normal sinus rhythm without evidence of significant ST elevations or depressions. Pt was treated with GI cocktail, Protonix, ondansetron, morphine, Tums, ketorolac, and Dilaudid. Pt will be admitted to the hospital for treatment and further evaluation of intractable abdominal pain likely secondary to duodenitis/duodenal ulcer in the setting alcohol dependence. Review of Systems 2 Review of Systems: Epigastric pain Epigastric tenderness to palpation Chronic diarrhea Denies hematochezia, melena No diaphoresis, auditory or visual hallucinations [facility] Medical History Pre-op examination Hematoma of nasal septum Physical exam Screening for colon cancer Family History Mother Substance use disorder Mental health disorder Father Mental health disorder Maternal Grandmother Mental health disorder Maternal Uncle Mental health disorder Maternal Grandfather Skin cancer Maternal Uncle Cancer Maternal Aunt Breast cancer Surgical History Hx of tonsillectomy H/O colonoscopy Previous back surgery Social History Housing: House Patient Tobacco Use Status: Former Tobacco user Years Smoked: quit over 10years ago Smoked in Last 30 Days: No e-Cigarette/Vaping Use: Never Used Second Hand Smoke Exposure: No Use of substances other than those prescribed or required for medical reasons: No Advance Directives: No service: No Current occupational status: unemployed Cognitive needs: No Hearing needs: No Vision needs: No Meds Allergies Allergy/AdvReac Type Severity Reaction Status Date / Time No Known Allergies Allergy Verified 06/27/23 13:26 Home Medications ?Medication ?Instructions ?Recorded ?Confirmed ?Last Taken ?Type dextroamphetamine-amphetamine 20 1 tab PO BID 11/25/21 02/23/23 Unknown History mg tablet lorazepam 1 mg tablet 1 mg PO DAILY PRN anxiety 11/25/21 02/23/23 Unknown History Physical Exam 2 Vital Signs and Narrative: Vital Signs: Last Vital Signs Temp 98.2 F 06/27/23 16:53 Pulse 108 H 06/27/23 18:12 Resp 15 06/27/23 20:09 BP 124/88 06/27/23 18:12 Pulse Ox 98 06/27/23 18:12 O2 Del Method Room Air 06/27/23 18:12 BMI result Body Mass Index 31.2 General: AOx3, no acute distress Resp: CTA bilaterally CVS: S1, S2, RRR GI: +BS, no distention, epigastric tenderness to palpation Skin: Warm, dry Neuro: Cranial nerves II-XII grossly intact bilaterally. Motor grossly intact bilaterally Extremities: No edema Psych: Appropriate affect Results Labs 06/27/23 13:44 06/27/23 13:44 Labs: Laboratory Results - last 24 hr 06/27/23 06/27/23 06/27/23 13:44 13:45 18:08 MCV 91.5 MCH 33.2 H MCHC 36.3 H RDW 11.9 Plt Count 331 MPV 8.4 L Immature Gran % (Auto) 0.1 Neut % (Auto) 57.9 Lymph % (Auto) 29.4 [place] % (Auto) 10.8 Eos % (Auto) 1.2 Baso % (Auto) 0.6 Lymph # (Auto) 2.1 [place] # (Auto) 0.8 Eos # (Auto) 0.1 Baso # (Auto) 0.0 Abs Immat Gran (auto) 0.01 Absolute Neuts (auto) 4.2 Absolute Nucleated RBC 0.000 Nucleated RBC % (auto) 0.0 PT 12.6 INR 1.0 Anion Gap 20 Estim Creat Clear Calc 117.6 Estimated GFR > 60 POC Glucose 120 H Random Glucose 115 Calcium 9.8 D Magnesium 1.9 Total Bilirubin 0.6 Direct Bilirubin 0.2 AST 39 H ALT 41 H Alkaline Phosphatase 57 Troponin I High Sens < 2.7 < 2.7 Total Protein 7.6 Albumin 4.4 Lipase 36 TSH 2.76 Imaging Radiologist's Impressions: Impressions Chest X-Ray 06/27/23 13:33 IMPRESSION: No radiographic evidence of acute cardiopulmonary disease. Abdomen Ultrasound 06/27/23 16:08 IMPRESSION: Hepatic steatosis, otherwise unremarkable right upper quadrant ultrasound. Abdomen/Pelvis CT 06/27/23 17:03 IMPRESSION: 1. Inflammatory fat stranding around the second portion of the duodenum that does not appear to involve the adjacent pancreatic head. This is favored to be secondary to duodenitis or duodenal ulcer. Recommend correlation with pancreatic enzymes to exclude groove pancreatitis. 2. Prominent liver and diffuse hepatic steatosis. Fleischner guidelines were followed. Assessment and Plan (1) Epigastric abdominal tenderness: Status: Acute Plan Pt is a 47-year-old male with a PMH significant for HTN, anxiety, and alcohol dependence who presents to the ED for evaluation of intermittent severe epigastric pain since last night. Pt will be admitted to the hospital for treatment and further evaluation of intractable abdominal pain likely secondary to duodenitis/duodenal ulcer in the setting alcohol dependence. Epigastric pain CT showing likely duodenitis vs duodenal ulcer Likely secondary to chronic daily alcohol use Patient received Maalox, GI cocktail, and Protonix in ED Will continue Protonix b.i.d. Analgesics for pain management NPO for now, advance diet as tolerated IVF: Lactated Ringer's Will check stool for occult blood GI consult Alcohol use disorder Pt reports drinking 4-5 beers nightly Monitor on CIWA Alcohol cessation counseled Addiction medicine consult HTN Continue home meds Anxiety Continue home meds Full Code Attending:?Dr. Harrell DVT Prophylaxis: Pneumatic boots Pt will require a hospitalization of at least two nights for treatment of?intractable epigastric pain likely secondary to duodenitis/duodenal ulcer in the setting of chronic alcohol use. Patient will require hospitalization for bowel rest, administration of IVF, IV analgesics, and specialist consultation with Gastroenterology. Quality Stroke Does the patient have a stroke diagnosis?: No VTE Prior VTE?: No VTE Risk Level:: Medical - moderate - high VTE Device Contraindication: N/A - Device Ordered VTE Drug Contraindication: Treatment Not Indicated
--- NOTE | 2023-06-27 20:35 | MHC.EDTECH ---
This tech took over care of patient at 1900,hourly rounds and vitals completed. Belongings list completed and copy placed in chart,call vuong in reach
[2023-06-27] MEDS: Lactated Ringers 1,000 ML 100 ML IVCONT (22:47)
[2023-06-28] VITALS: BP 133/90; PULSE 99; RESP 18; TEMP 36.4; O2SAT 96
[2023-06-28 02:07] VITALS: RESP 16
[2023-06-28] MEDS: HYDROmorphone HCl 1 MG/ML SYRINGE IVPUSH ×2 (02:07→03:16)
[2023-06-28] MEDS: HYDROmorphone HCl 1 MG/ML SYRINGE 1.5 MG IVPUSH ×4 (05:59→19:36)
[2023-06-28] MEDS: LORazepam 2 MG/ML VIAL 1 MG IVPUSH (06:04)
[2023-06-28] MEDS: Pantoprazole Sodium 40 MG/10 ML VIAL IVPUSH ×3 (06:05→15:30)
[2023-06-28] MEDS: Magnesium Hydrox/Alum Hydrox 30 ML ORAL.SUSP PO (06:25)
[2023-06-28 06:30] LABS: Lactic Acid 1.4 mmol/L (0.5-2.0)
[2023-06-28 06:34] LABS: Hematocrit 41.7 % (42.0-52.0); Hemoglobin 14.5 g/dl (14.0-18.0); Mean Corpuscular HGB Conc 34.8 g/dl (31.0-36.0); Mean Corpuscular Volume 94.8 fL (80.0-98.0); Mean Platelet Volume 8.7 fL (9.4-12.4); Platelet Count 316 X10*3/uL (160-400); Red Cell Distribution Width 11.9 % (11.0-16.0); White Blood Count 13.8 X10*3/uL (4.8-10.8)
[2023-06-28 06:42] LABS: Alanine Aminotransferase 36 U/L (0-40); Albumin Level 4.2 g/dL (3.5-5.0); Alkaline Phosphatase 58 U/L (39-117); Anion Gap 18 (12-20); Aspartate Amino Transferase 37 U/L (5-37); Bilirubin Total 1.4 mg/dL (0.0-1.0); Blood Urea Nitrogen 16 mg/dL (9-16); Calcium 9.3 mg/dL (8.4-10.2); Carbon Dioxide 20 mmol/L (22-29); Chloride 101 mmol/L (96-108); Creatinine Clr Calc Pharmacy 110.9; Estimated Glomerular Filt Rate > 60; Glucose Random 157 mg/dL (60-115); Potassium 3.6 mmol/L (3.3-5.1); Sodium 135 mmol/L (135-145); Total Protein 7.2 g/dL (6.5-8.0); Troponin-I High Sensitivity < 2.7 ng/L (<3.5-35.0)
[2023-06-28 06:47] LABS: Lipase 1035 U/L (8-78)
[2023-06-28 07:36] VITALS: BP 147/80; PULSE 88; RESP 14; TEMP 36.5; O2SAT 96
[2023-06-28] MEDS: Lactated Ringers 1,000 ML 100 ML IVCONT ×3 (08:14→23:03)
--- NOTE | 2023-06-28 08:37 | MHC.CM.PN ---
PATIENT IS FULLY INDEPENDENT HE USES NO DME OR [facility] SERVICES. HE IS PLANNING TO GO HOME WITH NO SERVICES ONCE HE IS MEDICALLY CLEARED. PATIENT CURRENTLY NOT FEELING WELL AND WILL CONSIDER HCP COMPLETION AT A BETTER TIME. CASE MANAGEMENT NAME ON WHITE BOARD
--- NOTE | 2023-06-28 09:41 | P.CNGI_ITS ---
History of Present Illness Data of Consult Service Date: 06/28/23 Requesting physician: Hemant White Primary Care Provider: VALENTINA Reagan HPI Reason for consult: Duoodenitis/?duodenal ulcer 47 YM with HTN, anxiety, and alcohol dependence seen at [facility] ED on 06/27/23 with intermittent severe epigastric pain since night of 06/26/23.. Pt reported symptoms began while sitting and watching TV, notes a constant pressure and intermittent 7-8/10 sharp, stabbing pain in the epigastric region that wraps around to right side. Pain comes in intense waves - lasts a few seconds then resolves but returns in 20-30 minutes. Reports the area is tender to the touch. Pt complains of nausea and retching and denies vomiting, heartburn, dysphagia, SOB. fever or chills. Admits to having abdominal discomfort for the past several months ? associated with spicy foods. Pt reports abdominal pain is a little better today, he feels hungry and is requesting a diet. Also complains of chronic non-bloody diarrhea for many months with up to 6 BMs a day. Pt has been evaluated by Yessenia Murphy NP in GI and is scheduled for an outpatient colonoscopy on 08/19/23 He has a hx of colon polyps removed during past colonoscopies (last in 2018) Pt denied any bright red blood or dark-colored stools. Pt has a long history of heavy alcohol use though reports recently cut back and now only drinks 4-5 beers nightly and denies hard liquor. He admits to using Cannabis 2-3 times a day. Pt admits to wt gain from 170 to 230 lbs over the past 2 yrs. Pt admits to loud snoring and denies a hx of sleep apnea. He takes Motrin 1 tablet every 2 weeks He has had tonsillectomy, adenoidectomy and knee surgerires in the past and denies issues with anesthesia Family hx is positive for diverticulosis in his Mom, GM and Uncle and a hx of colon polyps in an uncle. In the ED pt was afebrile with tachycardia up to 108 and tachypneic up to 22. Labs were significant for mild transaminitis of AST 39 and ALT 41, otherwise grossly unremarkable. No leukocytosis. Stable H&H of 15.7/43.3. Lipase WNL at 36. Repeat labs showed elevated Lipase to 1035. Serial troponins negative. CXR showed no radiographic evidence of acute cardiopulmonary disease. EKG demonstrated normal sinus rhythm without evidence of significant ST elevations or depressions. Pt was treated with GI cocktail, Protonix, ondansetron, morphine, Tums, ketorolac, and Dilaudid. He was admitted for further evaluation of intractable abdominal pain likely secondary to duodenitis/duodenal ulcer in the setting alcohol dependence. 06/27/[address] SCAN SHOWED (personally reviewed): 1. Inflammatory fat stranding around the second portion of the duodenum that does not appear to involve the adjacent pancreatic head. This is favored to be secondary to duodenitis or duodenal ulcer. Recommend correlation with pancreatic enzymes to exclude acute pancreatitis. 2. Prominent liver and diffuse hepatic steatosis. Abdominal ultrasound found hepatic steatosis, otherwise unremarkable RUQ exam. Review of Systems 2 Review of Systems: Epigastric pain Epigastric tenderness to palpation Chronic diarrhea Denies hematochezia, melena No diaphoresis, auditory or visual hallucinations PMFSH Past Medical History Medical History Fatty liver Pre-op examination Screening for colon cancer Physical exam Hematoma of nasal septum Family History Family History Mother Substance use disorder Mental health disorder Father Mental health disorder Maternal Grandmother Mental health disorder Maternal Uncle Mental health disorder Maternal Grandfather Skin cancer Maternal Uncle Cancer Maternal Aunt Breast cancer Surgical History Surgical History Hx of esophagogastroduodenoscopy H/O knee surgery Hx of tonsillectomy H/O colonoscopy Previous back surgery Social History Social History Household Members: Family Housing: House Do you presently have visiting nurse or other home services: No Patient Tobacco Use Status: Former Tobacco user Quit Date: 2004 Tobacco use type: Cigarette Years Smoked: 15 e-Cigarette/Vaping Use: Never Used Second Hand Smoke Exposure: No Substance Use Type: Marijuana service: No Current occupational status: unemployed Cognitive needs: No Hearing needs: No Vision needs: No Meds Allergies Allergy/AdvReac Type Severity Reaction Status Date / Time No Known Allergies Allergy Verified 07/17/23 10:13 Active Medications: Current Medications Acetaminophen (Acetaminophen 325 Mg Tablet) 650 mg PO Q6H PRN PRN Reason: Pain, Mild (Pain Scale 1-3) Benzonatate (Benzonatate 100 Mg Capsule) 100 mg PO TID PRN PRN Reason: Cough Hydromorphone HCl (Hydromorphone Hcl 1 Mg/Ml Syringe) 1.5 mg IVPUSH Q3H PRN; Protocol PRN Reason: Pain, Severe (Pain Scale 7-10) Last Admin: 06/28/23 05:59 Dose: 1.5 mg Lactated Ringer's (Lr) 1,000 mls @ 100 mls/hr IVCONT .Q10H [facility] Last Admin: 06/28/23 08:14 Dose: 100 mls/hr Melatonin (Melatonin 3 Mg Tablet) 6 mg PO BEDTIME PRN PRN Reason: Insomnia Ondansetron HCl (Ondansetron Hcl 4 Mg/2 Ml Vial) 4 mg IVPUSH Q8H PRN PRN Reason: Nausea and Vomiting Pantoprazole Sodium (Pantoprazole Sodium 40 Mg/10 Ml Vial) 40 mg IVPUSH BID@0630,1630 [facility] Last Admin: 06/28/23 06:05 Dose: 40 mg Sodium Chloride (0.9 % Sodium Chloride Flush 3 Ml Syringe) 3 ml IVFLUSH QSHIFT [facility] Last Admin: 06/28/23 08:15 Dose: Not Given Home Medications ?Medication ?Instructions ?Recorded ?Confirmed ?Last Taken ?Type dextroamphetamine-amphetamine 20 1 tab PO BID@0900,1500 11/25/21 07/17/23 06/26/23 History mg tablet lorazepam 1 mg tablet 1 mg PO DAILY PRN anxiety 11/25/21 07/17/23 Unknown History Physical Exam 2 Vital Signs: Vital Signs: Last Vital Signs Temp 97.7 F 06/28/23 07:36 Pulse 88 06/28/23 07:36 Resp 14 06/28/23 07:36 BP 147/80 H 06/28/23 07:36 Pulse Ox 96 06/28/23 07:36 O2 Del Method Room Air 06/28/23 07:36 BMI result Body Mass Index 31.2 Const: General: no acute distress Nutritional Appearance: obese O rientation/consciousness: patient oriented x3 HEENT: Head: Yes normal to inspection Ears: hearing grossly normal bilaterally Eyes: Sclerae: sclerae normal Pupils: Equal, round and reactive pupils present Neck: Neck: Yes normal visual inspection Chest: Chest palpation & inspection: normal inspection of the chest Resp: Effort & Inspection: normal respiratory effort Auscultation: clear to auscultation bilaterally Cardio: Palpation: normal PMI Rate: regular rate Rhythm: regular rhythm Heart sounds: S1 normal heart sound present, S2 normal heart sound present and no murmurs GI: Palpation (GI): Soft to palpation, Tenderness to palpation present (GI) (Moderate epigastric and RUQ tenderness) and No hepatosplenomegaly present A uscultation: normal bowel sounds Rectal Exam - Male: Yes deferred Skin: General skin exam: no rashes or lesions noted Neuro: General: patient oriented x3, gait normal and moves all extremities Cranial nerves: Yes Equal, round and reactive pupils present Psych: Appearance: grossly normal Mental Status: mental status grossly normal Results Labs 06/29/23 05:28 06/29/23 05:28 Labs: Short CBC 06/27/23 06/28/23 Range/Units 13:44 06:07 WBC 7.3 13.8 H (4.8-10.8) X10*3/uL Hgb 15.7 14.5 (14.0-18.0) g/dl Hct 43.3 41.7 L (42.0-52.0) % Plt Count 331 316 (160-400) X10*3/uL BMP 06/27/23 06/28/23 13:44 06:07 Sodium 138 135 Potassium 3.7 3.6 Chloride 97 101 Carbon Dioxide 25 20 L BUN 16 16 Creatinine 0.99 1.05 Calcium 9.8 D 9.3 Liver Function 06/27/23 06/28/23 Range/Units 13:44 06:07 Total Bilirubin 0.6 1.4 H (0.0-1.0) mg/dL Direct Bilirubin 0.2 (0.0-0.5) mg/dL AST 39 H 37 (5-37) U/L ALT 41 H 36 (0-40) U/L Alkaline Phosphatase 57 58 (39-117) U/L Albumin 4.4 4.2 (3.5-5.0) g/dL Assessment and Plan (1) Epigastric abdominal tenderness: Status: Resolved (2) Duodenitis: Status: Acute (3) Diarrhea: Status: Resolved Plan 47 YM with HTN, anxiety, and alcohol dependence admitted to [facility] on 06/27/23 with intermittent severe epigastric pain since night of 06/26/23.. Also complains of chronic non-bloody diarrhea for many months with up to 6 BMs a day ? related to ETOH use. Abdominal CT scan showed inflammatory fat stranding around the 2nd part of duodenum (not involving the pancreatic head) suspicious for duodenal ulcer Pt has been evaluated by Yessenia Murphy NP in GI and is scheduled for an outpatient colonoscopy on 08/19/23 Pt has a long history of heavy alcohol use though reports recently cut back and now only drinks 4-5 beers nightly and denies hard liquor. He admits to using Cannabis 2-3 times a day. Pt admits to wt gain from 170 to 230 lbs over the past 2 yrs. Pt admits to loud snoring and denies a hx of sleep apnea. He has had tonsillectomy, adenoidectomy and knee surgerires in the past and denies issues with anesthesia Lipase WNL at 36. Repeat labs showed elevated Lipase to 1035 Pt was treated with GI cocktail, Protonix, ondansetron, morphine, Tums, ketorolac, and Dilaudid. He was admitted for further evaluation of intractable abdominal pain likely secondary to duodenitis/duodenal ulcer in the setting alcohol dependence. RECOMMENDATIONS: 1. Agree with IV PPI, pain medications and anti emetics 2. Pt scheduled for an EGD on 06/29/23. Procedure and potential complications reveiwed with the patient and his . 3. OK to give a light diet today and then keep NPO after 2 am tomorrow. Procedures Date of Service Date of Service: 07/24/23
--- NOTE | 2023-06-28 10:01 | PHA.MEDREC ---
Pharmacy Consult ? Medication Reconciliation Pharmacy has completed the medication reconciliation.
[2023-06-28] MEDS: ondansetron HCL 4 MG/2 ML VIAL IVPUSH (11:44)
[2023-06-28 12:21] LABS: Lactate Dehydrogenase 244 U/L (118-273); Triglycerides 1117 mg/dL (<150)
--- NOTE | 2023-06-28 14:30 | HO.PM.IMPN ---
Subjective Subjective Date of Service: 06/28/23 Interval History: seen and examined this morning follow up for abdominal pain still reporting epigastric pain, no vomiting Review of Systems Review of Systems: Yes all other systems are reviewed and are negative Constitutional Constitutional: Denies chills and Denies fever(s) Cardiovascular Cardiovascular: Denies chest pain, Denies palpitations and Denies dyspnea Respiratory Respiratory: Denies cough and Denies dyspnea Gastrointestinal Gastrointestinal: Reports abdominal pain and Denies vomiting Endocrine Endocrine: Denies palpitations Physical Exam Vital Signs: Vital Signs: Last Vital Signs Temp 97.7 F 06/28/23 07:36 Pulse 88 06/28/23 07:36 Resp 14 06/28/23 07:36 BP 147/80 H 06/28/23 07:36 Pulse Ox 96 06/28/23 07:36 O2 Del Method Room Air 06/28/23 07:36 BMI result Body Mass Index 31.2 Const: Other: appears uncomfortable General: alert, awake and Physically active Nutritional Appearance: average body habitus Orientation/consciousness: patient oriented x3 Resp: Effort & Inspection: normal respiratory effort, able to speak in complete sentences, no respiratory distress and no use of accessory muscles Cardio: Rate: regular rate GI: Other: tender to palpation epigastric region/RUQ; no rebound Inspection: No distended Palpation (GI): Soft to palpation Neuro: General: patient oriented x3, moves all extremities and CN's II-XI intact bilaterally Extrem: General: Yes no pedal edema Objective Data Active Medications Acetaminophen (Acetaminophen 325 Mg Tablet) 650 mg PO Q6H PRN PRN Reason: Pain, Mild (Pain Scale 1-3) Amlodipine Besylate (Amlodipine Besylate 5 Mg Tablet) 5 mg PO DAILY [facility]; Protocol Benzonatate (Benzonatate 100 Mg Capsule) 100 mg PO TID PRN PRN Reason: Cough Gabapentin (Gabapentin 600 Mg Tablet) 600 mg PO TID [facility] Hydromorphone HCl (Hydromorphone Hcl 1 Mg/Ml Syringe) 1.5 mg IVPUSH Q3H PRN; Protocol PRN Reason: Pain, Severe (Pain Scale 7-10) Last Admin: 06/28/23 10:22 Dose: 1.5 mg Documented By: CASTILLO Lactated Ringer's (Lr) 1,000 mls @ 100 mls/hr IVCONT .Q10H BRETT Last Admin: 06/28/23 08:14 Dose: 100 mls/hr Documented By: CASTILLO Lorazepam (Lorazepam 1 Mg Tablet) 1 mg PO DAILY PRN PRN Reason: anxiety Melatonin (Melatonin 3 Mg Tablet) 6 mg PO BEDTIME PRN PRN Reason: Insomnia Ondansetron HCl (Ondansetron Hcl 4 Mg/2 Ml Vial) 4 mg IVPUSH Q8H PRN PRN Reason: Nausea and Vomiting Last Admin: 06/28/23 11:44 Dose: 4 mg Documented By: CASTILLO Pantoprazole Sodium (Pantoprazole Sodium 40 Mg/10 Ml Vial) 40 mg IVPUSH BID@0630,1630 [facility] Last Admin: 06/28/23 06:05 Dose: 40 mg Documented By: REN Sodium Chloride (0.9 % Sodium Chloride Flush 3 Ml Syringe) 3 ml IVFLUSH QSHIFT [facility] Last Admin: 06/28/23 08:15 Dose: Not Given Documented By: CASTILLO Non-Admin Reason: IV Running Labs 06/28/23 06:07 06/28/23 06:07 Labs: Laboratory Results - last 24 hr 06/27/23 06/27/23 06/27/23 13:44 13:45 18:08 MCV MCH MCHC RDW Plt Count MPV Absolute Nucleated RBC Nucleated RBC % (auto) Anion Gap Estim Creat Clear Calc Estimated GFR POC Glucose 120 H Random Glucose Lactic Acid Calcium Total Bilirubin AST ALT Alkaline Phosphatase Lactate Dehydrogenase Troponin I High Sens < 2.7 < 2.7 Total Protein Albumin Triglycerides Lipase 36 TSH 2.76 06/28/23 06:07 MCV 94.8 MCH 33.0 MCHC 34.8 RDW 11.9 Plt Count 316 MPV 8.7 L Absolute Nucleated RBC 0.000 Nucleated RBC % (auto) 0.0 Anion Gap 18 Estim Creat Clear Calc 110.9 Estimated GFR > 60 POC Glucose Random Glucose 157 H Lactic Acid 1.4 Calcium 9.3 Total Bilirubin 1.4 H AST 37 ALT 36 Alkaline Phosphatase 58 Lactate Dehydrogenase 244 Troponin I High Sens < 2.7 Total Protein 7.2 Albumin 4.2 Triglycerides 1117 H Lipase 1035 H TSH Assessment and Plan (1) Duodenitis: Status: Acute (2) Epigastric abdominal tenderness: Status: Acute Plan Pt is a 47-year-old male with a PMH significant for HTN, anxiety, and alcohol dependence who presents to the ED for evaluation of intermittent severe epigastric pain since last night. Pt will be admitted to the hospital for treatment and further evaluation of intractable abdominal pain likely secondary to duodenitis/duodenal ulcer in the setting alcohol dependence. Epigastric pain CT showing likely duodenitis vs duodenal ulcer on a background of daily alcohol use Continue Protonix IV Analgesics for pain management seen by GI, and diet advanced, but NPO overnight for EGD in am although lipase trended up likely due to inflammation from duodenum. no evidence of pancreatitis on imaging Alcohol use disorder Pt reports drinking 4-5 beers nightly CIWA low no evidence of alcohol withdrawal at this time Addiction medicine consult severe hypertriglyceridemia low fat diet start lopid full lipid profile ordered for am HTN hold HCTZ continue norvasc, will resume lisinopril Anxiety Continue ativan Full Code Attending:?Dr. Ma DVT Prophylaxis: Pneumatic boots Requires ongoing inpatient stay for treatment of?intractable epigastric pain likely secondary to duodenitis/duodenal ulcer in the setting of chronic alcohol use. Patient will require hospitalization for bowel rest, administration of IVF, IV analgesics, and endoscopy Quality Stroke Does the patient have a stroke diagnosis?: No VTE Prior VTE?: No VTE Risk Level:: Medical - moderate - high VTE Device Contraindication: N/A - Device Ordered VTE Drug Contraindication: Treatment Not Indicated
[2023-06-28] MEDS: Gabapentin 600 MG TABLET PO ×2 (15:30→19:36)
[2023-06-28] MEDS: gemfibroziL 600 MG TABLET PO (15:36)
[2023-06-28 15:51] VITALS: BP 124/81; PULSE 80; RESP 18; TEMP 36.1; O2SAT 93
[2023-06-28] MEDS: LORazepam 1 MG TABLET PO (19:36)
[2023-06-28 19:41] VITALS: BP 128/82; PULSE 94; RESP 18; TEMP 36.5; O2SAT 98
[2023-06-28 23:19] VITALS: BP 122/64; PULSE 89; RESP 16; TEMP 37; O2SAT 94
[2023-06-29] VITALS (8 sets, daily range): BP systolic 101–153; BP diastolic 55–92; PULSE 88–114; RESP 14–20; TEMP 36.4–37.4; O2SAT 96–98
[2023-06-29] MEDS: HYDROmorphone HCl 1 MG/ML SYRINGE 1.5 MG IVPUSH (02:43)
[2023-06-29 05:33] LABS: MANUAL DIFF FLAG NO
[2023-06-29 05:44] LABS: Basophils Percent Auto 0.1 % (0-2); Eosinophils Absolute Auto 0.1 X10*3/uL (0.0-0.4); Eosinophils Percent Auto 1.3 % (0-4); Hematocrit 38.3 % (42.0-52.0); Hemoglobin 13.1 g/dl (14.0-18.0); Imm Gran Abs Auto 0.02 X10*3/uL (0.00-0.03); Imm Gran Pct Auto 0.3 % (0.0-0.4); Lymphocytes Absolute Auto 1.4 X10*3/uL (1.2-4.9); Lymphocytes Percent Auto 18.5 % (20-40); Mean Corpuscular HGB Conc 34.2 g/dl (31.0-36.0); Mean Corpuscular Hemoglobin 33.2 pg (27.0-33.0); Mean Platelet Volume 8.8 fL (9.4-12.4); Monocytes Absolute Auto 0.6 X10*3/uL (0.1-1.2); Monocytes Percent Auto 7.8 % (2-11); Neutrophils Absolute Auto 5.5 x10*3/uL (2.0-8.3); Platelet Count 214 X10*3/uL (160-400); Red Blood Count 3.95 X10*6/uL (4.60-5.80); Red Cell Distribution Width 11.9 % (11.0-16.0); White Blood Count 7.6 X10*3/uL (4.8-10.8)
[2023-06-29 06:05] LABS: Anion Gap 9 (12-20); Blood Urea Nitrogen 9 mg/dL (9-16); Calcium 8.9 mg/dL (8.4-10.2); Carbon Dioxide 30 mmol/L (22-29); Chloride 102 mmol/L (96-108); Cholesterol 234 mg/dL (<200); Creatinine Clr Calc Pharmacy 151.2; Estimated Glomerular Filt Rate > 60; Glucose Random 115 mg/dL (60-115); HDL Cholesterol 35 mg/dL (>40); Potassium 4.3 mmol/L (3.3-5.1); Sodium 137 mmol/L (135-145); Triglycerides 488 mg/dL (<150)
[2023-06-29] MEDS: Pantoprazole Sodium 40 MG/10 ML VIAL IVPUSH ×2 (06:15→17:25)
[2023-06-29] MEDS: lisinopriL 40 MG TABLET PO (08:03)
[2023-06-29] MEDS: amLODIPine Besylate 5 MG TABLET PO (08:03)
[2023-06-29] MEDS: Gabapentin 600 MG TABLET PO (08:03)
[2023-06-29] MEDS: Lactated Ringers 1,000 ML 100 ML IVCONT (08:42)
--- NOTE | 2023-06-29 10:22 | HO.PM.IMPN ---
Subjective Subjective Date of Service: 06/29/23 Interval History: seen and examined this morning follow up for abdominal pain still reporting epigastric pain, no vomiting Review of Systems Review of Systems: Yes all other systems are reviewed and are negative Constitutional Constitutional: Denies chills and Denies fever(s) Cardiovascular Cardiovascular: Denies chest pain, Denies palpitations and Denies dyspnea Respiratory Respiratory: Denies cough and Denies dyspnea Gastrointestinal Gastrointestinal: Reports abdominal pain and Denies vomiting Endocrine Endocrine: Denies palpitations Physical Exam Vital Signs: Vital Signs: Last Vital Signs Temp 97.7 F 06/29/23 07:23 Pulse 93 06/29/23 07:23 Resp 14 06/29/23 07:23 BP 134/92 H 06/29/23 08:03 Pulse Ox 96 06/29/23 07:23 O2 Del Method Room Air 06/29/23 07:23 BMI result Body Mass Index 31.2 Appearing in no acute distress lung sounds are clear to auscultation heart regular rate rhythm, clear S1, S2 positive bowel sounds, abdomen is soft, nontender neuro patient is alert x3, no focal deficits Objective Data Active Medications Acetaminophen (Acetaminophen 325 Mg Tablet) 650 mg PO Q6H PRN PRN Reason: Pain, Mild (Pain Scale 1-3) Amlodipine Besylate (Amlodipine Besylate 5 Mg Tablet) 5 mg PO DAILY [facility]; Protocol Last Admin: 06/29/23 08:03 Dose: 5 mg Documented By: ANCA Benzonatate (Benzonatate 100 Mg Capsule) 100 mg PO TID PRN PRN Reason: Cough Gabapentin (Gabapentin 600 Mg Tablet) 600 mg PO TID [facility] Last Admin: 06/29/23 08:03 Dose: 600 mg Documented By: ANCA Gemfibrozil (Gemfibrozil 600 Mg Tablet) 600 mg PO BIDAC [facility] Last Admin: 06/29/23 07:30 Dose: Not Given Documented By: ANCA Non-Admin Reason: NPO Hydromorphone HCl (Hydromorphone Hcl 1 Mg/Ml Syringe) 1.5 mg IVPUSH Q3H PRN; Protocol PRN Reason: Pain, Severe (Pain Scale 7-10) Last Admin: 06/29/23 02:43 Dose: 1.5 mg Documented By: REN Lactated Ringer's (Lr) 1,000 mls @ 100 mls/hr IVCONT .Q10H [facility] Last Admin: 06/29/23 08:42 Dose: 100 mls/hr Documented By: ANCA Lisinopril (Lisinopril 40 Mg Tablet) 40 mg PO DAILY [facility]; Protocol Last Admin: 06/29/23 08:03 Dose: 40 mg Documented By: ANCA Lorazepam (Lorazepam 1 Mg Tablet) 1 mg PO DAILY PRN PRN Reason: anxiety Last Admin: 06/28/23 19:36 Dose: 1 mg Documented By: REN Melatonin (Melatonin 3 Mg Tablet) 6 mg PO BEDTIME PRN PRN Reason: Insomnia Ondansetron HCl (Ondansetron Hcl 4 Mg/2 Ml Vial) 4 mg IVPUSH Q8H PRN PRN Reason: Nausea and Vomiting Last Admin: 06/28/23 11:44 Dose: 4 mg Documented By: CASTILLO Pantoprazole Sodium (Pantoprazole Sodium 40 Mg/10 Ml Vial) 40 mg IVPUSH BID@0630,1630 [facility] Last Admin: 06/29/23 06:15 Dose: 40 mg Documented By: RNE Sodium Chloride (0.9 % Sodium Chloride Flush 3 Ml Syringe) 3 ml IVFLUSH QSHIFT [facility] Last Admin: 06/29/23 07:09 Dose: Not Given Documented By: ANCA Non-Admin Reason: IV Running Labs 06/29/23 05:28 06/29/23 05:28 Labs: Laboratory Results - last 24 hr 06/28/23 06/29/23 06:07 05:28 MCV 97.0 MCH 33.2 H MCHC 34.2 RDW 11.9 Plt Count 214 D MPV 8.8 L Immature Gran % (Auto) 0.3 Neut % (Auto) 72.0 Lymph % (Auto) 18.5 L [place] % (Auto) 7.8 Eos % (Auto) 1.3 Baso % (Auto) 0.1 Lymph # (Auto) 1.4 [place] # (Auto) 0.6 Eos # (Auto) 0.1 Baso # (Auto) 0.0 Abs Immat Gran (auto) 0.02 Absolute Neuts (auto) 5.5 Absolute Nucleated RBC 0.000 Nucleated RBC % (auto) 0.0 Anion Gap 9 L Estim Creat Clear Calc 151.2 Estimated GFR > 60 Random Glucose 115 Calcium 8.9 Lactate Dehydrogenase 244 Triglycerides 1117 H 488 H Cholesterol 234 H LDL Cholesterol, Calc TNP HDL Cholesterol 35 L Assessment and Plan (1) Duodenitis: Status: Acute (2) Epigastric abdominal tenderness: Status: Acute Plan 47-year-old male with a PMH significant for HTN, anxiety, and alcohol dependence who presents to the ED for evaluation of intermittent severe epigastric pain since last night. Pt will be admitted to the hospital for treatment and further evaluation of intractable abdominal pain likely secondary to duodenitis/duodenal ulcer in the setting alcohol dependence. Epigastric pain CT showing likely duodenitis vs duodenal ulcer on a background of daily alcohol use Continue Protonix IV Analgesics for pain management seen by GI, and diet advanced, but NPO overnight for EGD today although lipase trended up likely due to inflammation from duodenum. no evidence of pancreatitis on imaging Alcohol use disorder Pt reports drinking 4-5 beers nightly CIWA low no evidence of alcohol withdrawal at this time Addiction medicine consult discussed the importance of alcohol cessation severe hypertriglyceridemia [id number] low fat diet continue lopid HTN hold HCTZ continue norvasc, will resume lisinopril Anxiety Continue ativan Full Code Attending:?Dr. Garza DVT Prophylaxis: Pneumatic boots Requires ongoing inpatient stay for treatment of?intractable epigastric pain likely secondary to duodenitis/duodenal ulcer in the setting of chronic alcohol use. Patient will require hospitalization for bowel rest, administration of IVF, IV analgesics, and endoscopy Quality Stroke Does the patient have a stroke diagnosis?: No VTE Prior VTE?: No VTE Risk Level:: Medical - moderate - high VTE Device Contraindication: N/A - Device Ordered VTE Drug Contraindication: Treatment Not Indicated
--- NOTE | 2023-06-29 13:30 | MHC.CM.PN ---
EMR REVIEWED AND PER MD ROUNDS, PT IS NOT MEDICALLY CLEARED FOR DC. PT WILL NEED AN ENDOSCOPY. CM WILL CONTINUE TO FOLLOW FOR ANY CHANGE IN DC PLAN/NEEDS.
--- NOTE | 2023-06-29 15:15 | HO.ANESPROP2 ---
[facility] Active Problems Active Problems: All Active Problems Epigastric abdominal tenderness (Acute) Duodenitis (Acute) Chest pain (Acute) Weight gain (Acute) Diarrhea (Acute) Yonas's thyroiditis (Acute) Tubular adenoma of colon (Acute) Alcohol use disorder (Acute) Chronic pain syndrome (Acute) Low libido (Acute) Elevated fasting blood sugar (Acute) Dyslipidemia (Acute) HTN (hypertension) (Acute) Lumbar back pain with radiculopathy affecting right lower extremity (Acute) Elevated liver enzymes (Acute) Hyperkalemia (Acute) Dribbling following urination (Acute) Past Medical History Medical History Pre-op examination Screening for colon cancer Physical exam Hematoma of nasal septum Family History Family History Mother Substance use disorder Mental health disorder Father Mental health disorder Maternal Grandmother Mental health disorder Maternal Uncle Mental health disorder Maternal Grandfather Skin cancer Maternal Uncle Cancer Maternal Aunt Breast cancer Surgical History Surgical History H/O knee surgery Hx of tonsillectomy H/O colonoscopy Previous back surgery History of Problems with Anesthesia: No Social History Social History Household Members: Family Housing: House Do you presently have visiting nurse or other home services: No Patient Tobacco Use Status: Former Tobacco user Quit Date: 2004 Tobacco use type: Cigarette Years Smoked: 15 Smoked in Last 30 Days: No e-Cigarette/Vaping Use: Never Used Second Hand Smoke Exposure: No Use of substances other than those prescribed or required for medical reasons: Yes Substance Use Type: Marijuana Substance Use Type Other:: oral and inhale Substance Use Frequency: Daily Currently Displaying Signs/Symptoms of Drug Intoxication Withdrawal: No Have you been hit, kicked, punched, or otherwise hurt by someone within the past year? If so, by whom?: No Do you feel safe in your current relationship?: Yes Is there a partner from a previous relationship who is making you feel unsafe now?: No Are you made to feel afraid or neglected: No Are you DNR?: No Advance Directives: No Do you have thoughts of harming others: None Do you have a plan to hurt others: No Plan Recently lost weight without trying: No Eating poorly because of decreased appetite: No Nutrition Risks: No Nutritional Risk service: No Current occupational status: unemployed Cognitive needs: No Hearing needs: No Vision needs: No Meds Allergies Allergy/AdvReac Type Severity Reaction Status Date / Time No Known Allergies Allergy Verified 06/29/23 15:12 Active Medications: Current Medications Acetaminophen (Acetaminophen 325 Mg Tablet) 650 mg PO Q6H PRN PRN Reason: Pain, Mild (Pain Scale 1-3) Amlodipine Besylate (Amlodipine Besylate 5 Mg Tablet) 5 mg PO DAILY [facility]; Protocol Last Admin: 06/29/23 08:03 Dose: 5 mg Benzonatate (Benzonatate 100 Mg Capsule) 100 mg PO TID PRN PRN Reason: Cough Gabapentin (Gabapentin 600 Mg Tablet) 600 mg PO TID [facility] Last Admin: 06/29/23 15:07 Dose: Not Given Gemfibrozil (Gemfibrozil 600 Mg Tablet) 600 mg PO BIDAC [facility] Last Admin: 06/29/23 07:30 Dose: Not Given Hydromorphone HCl (Hydromorphone Hcl 1 Mg/Ml Syringe) 1.5 mg IVPUSH Q3H PRN; Protocol PRN Reason: Pain, Severe (Pain Scale 7-10) Last Admin: 06/29/23 02:43 Dose: 1.5 mg Lactated Ringer's (Lr) 1,000 mls @ 100 mls/hr IVCONT .Q10H BRETT Last Infusion: 06/29/23 15:07 Dose: 0 mls/hr Lisinopril (Lisinopril 40 Mg Tablet) 40 mg PO DAILY [facility]; Protocol Last Admin: 06/29/23 08:03 Dose: 40 mg Lorazepam (Lorazepam 1 Mg Tablet) 1 mg PO DAILY PRN PRN Reason: anxiety Last Admin: 06/28/23 19:36 Dose: 1 mg Melatonin (Melatonin 3 Mg Tablet) 6 mg PO BEDTIME PRN PRN Reason: Insomnia Ondansetron HCl (Ondansetron Hcl 4 Mg/2 Ml Vial) 4 mg IVPUSH Q8H PRN PRN Reason: Nausea and Vomiting Last Admin: 06/28/23 11:44 Dose: 4 mg Pantoprazole Sodium (Pantoprazole Sodium 40 Mg/10 Ml Vial) 40 mg IVPUSH BID@0630,1630 [facility] Last Admin: 06/29/23 06:15 Dose: 40 mg Sodium Chloride (0.9 % Sodium Chloride Flush 3 Ml Syringe) 3 ml IVFLUSH QSHIFT [facility] Last Admin: 06/29/23 07:09 Dose: Not Given Home Medications ?Medication ?Instructions ?Recorded ?Confirmed ?Last Taken ?Type dextroamphetamine-amphetamine 20 1 tab PO BID@0900,1500 11/25/21 06/28/23 06/26/23 History mg tablet lorazepam 1 mg tablet 1 mg PO DAILY PRN anxiety 11/25/21 06/28/23 Unknown History Exam Height,Weight and Vital Signs: Height 6 ft Weight 104.326 kg Last Vital Signs Temp 97.7 F 06/29/23 07:23 Pulse 93 06/29/23 07:23 Resp 14 06/29/23 07:23 BP 134/92 H 06/29/23 08:03 Pulse Ox 96 06/29/23 07:23 O2 Del Method Room Air 06/29/23 07:23 Pertinent Lab Results Pertinent Lab Results: Laboratory Tests 06/27/23 06/27/23 06/27/23 13:44 13:45 18:08 WBC 7.3 RBC 4.73 Hgb 15.7 Hct 43.3 MCV 91.5 MCH 33.2 H MCHC 36.3 H RDW 11.9 Plt Count 331 MPV 8.4 L Immature Gran % (Auto) 0.1 Neut % (Auto) 57.9 Lymph % (Auto) 29.4 [place] % (Auto) 10.8 Eos % (Auto) 1.2 Baso % (Auto) 0.6 Lymph # (Auto) 2.1 [place] # (Auto) 0.8 Eos # (Auto) 0.1 Baso # (Auto) 0.0 Abs Immat Gran (auto) 0.01 Absolute Neuts (auto) 4.2 Absolute Nucleated RBC 0.000 Nucleated RBC % (auto) 0.0 PT 12.6 INR 1.0 Sodium 138 Potassium 3.7 Chloride 97 Carbon Dioxide 25 Anion Gap 20 BUN 16 Creatinine 0.99 Estim Creat Clear Calc 117.6 Estimated GFR > 60 POC Glucose 120 H Random Glucose 115 Lactic Acid Calcium 9.8 D Magnesium 1.9 Total Bilirubin 0.6 Direct Bilirubin 0.2 AST 39 H ALT 41 H Alkaline Phosphatase 57 Lactate Dehydrogenase Troponin I High Sens < 2.7 < 2.7 Total Protein 7.6 Albumin 4.4 Triglycerides Cholesterol LDL Cholesterol, Calc HDL Cholesterol Lipase 36 TSH 2.76 06/28/23 06/29/23 06:07 05:28 WBC 13.8 H 7.6 RBC 4.40 L 3.95 L Hgb 14.5 13.1 L Hct 41.7 L 38.3 L MCV 94.8 97.0 MCH 33.0 33.2 H MCHC 34.8 34.2 RDW 11.9 11.9 Plt Count 316 214 D MPV 8.7 L 8.8 L Immature Gran % (Auto) 0.3 Neut % (Auto) 72.0 Lymph % (Auto) 18.5 L [place] % (Auto) 7.8 Eos % (Auto) 1.3 Baso % (Auto) 0.1 Lymph # (Auto) 1.4 [place] # (Auto) 0.6 Eos # (Auto) 0.1 Baso # (Auto) 0.0 Abs Immat Gran (auto) 0.02 Absolute Neuts (auto) 5.5 Absolute Nucleated RBC 0.000 0.000 Nucleated RBC % (auto) 0.0 0.0 PT INR Sodium 135 137 Potassium 3.6 4.3 Chloride 101 102 Carbon Dioxide 20 L 30 H Anion Gap 18 9 L BUN 16 9 Creatinine 1.05 0.77 Estim Creat Clear Calc 110.9 151.2 Estimated GFR > 60 > 60 POC Glucose Random Glucose 157 H 115 Lactic Acid 1.4 Calcium 9.3 8.9 Magnesium Total Bilirubin 1.4 H Direct Bilirubin AST 37 ALT 36 Alkaline Phosphatase 58 Lactate Dehydrogenase 244 Troponin I High Sens < 2.7 Total Protein 7.2 Albumin 4.2 Triglycerides 1117 H 488 H Cholesterol 234 H LDL Cholesterol, Calc TNP HDL Cholesterol 35 L Lipase 1035 H TSH Airway Mallampati Class: III TM Dist: >3cm Neck ROM: Full Loose/Missing/Broken Teeth: No Heart: RRR Lungs: CTA Assessment and Plan Assessment Anesthesia Assessment: Anesthesia Plan Discussed and Chart Reviewed Final Anesthetic Review History of Problems with Anesthesia: No NPO: Yes ASA Class: III Final Preanesthetic Review: Meds/Allgs Chart Reviewed, Consent Obtained/Reviewed and Anes Risks/Benef Reviewed Patient Risk: Intermediate Procedure Risk: Intermediate Anesthetic Plan Anesthetic Plan: MAC: Disposition: Standard PACU
--- NOTE | 2023-06-29 15:24 | PC.NURSE ---
Patient arrived to preop with PRN angio #20 left AC. Site asymptomatic, flushed well.
--- NOTE | 2023-06-29 16:22 | MHC.SHP ---
Pre-Procedural Eval Section A - 24 Hr Update-Section A only Date of Service: 06/29/23 The patient is an INPATIENT: Yes Changes since office visit: Yes New Medical Problems, Yes Changes in Medication and Yes Patient answered all questions; No Cold of Flu in the past 2 weeks The patient has been examined within 24 hours of the surgical procedure. The History & Physical has been completed within 30 days and I have reviewed it.: Yes Section B - Complete if H&P > 30 days Chief Complaint: Epigastric pain, ?duodenal ulcer Allergies: Allergies Allergy/AdvReac Type Severity Reaction Status Date / Time No Known Allergies Allergy Verified 06/29/23 15:12 Plan Diagnosis/Plan: Unchanged I have reviewed the history and physical and performed a pertinent physical examination on my patient. No changes have occurred unless specified. Time Spent With Patient Time: Total time managing care of this patient today ____ minutes.
--- NOTE | 2023-06-29 16:29 | W.PM.OPN ---
Operative Note Operative Note Date of Service: 06/29/23 Narrative: FLEXIBLE TRANSORAL UPPER GASTROINTESTINAL ENDOSCOPY WITH BIOPSIES Pre-op diagnosis: Epigastric pain, ? DU versus duodenitis on CT scan Post-op diagnosis: Gastritis, minimal duodenitis Endoscopist:? Osmany Valle MD Anesthesia:?MAC UPPER ENDOSCOPY Consent: Indications for the procedure and potential complications of bleeding, perforation, reaction to medications and missed diagnosis were discussed with the patient and informed consent was obtained. Instrument: Olympus GIF H 190 mid size upper endoscope Monitoring: Vital signs and clinical assessment, continuous EKG monitoring, Pulse oximetry, Carbon Dioxide monitoring and blood pressure monitoring were done throughout the procedure. Procedure: The patient was placed in the left lateral decubitis position and pre-procedure medications were administered and a bite block was placed. The endoscope was inserted into the mouth and advanced under direct vision to the third part of duodenum. A careful inspection was made as the upper endoscope was withdrawn including a retroflexed examination of the proximal stomach; Findings and interventions are described below. Findings: Larynx: Normal Esophagus: GE junction at 40 cms. No esophagitis or Cornell's Stomach: Moderate diffuse gastric erythema - biopsies were obtained from the body and antrum. Grade 2 flap valve on retroflexed examination of the cardia. Duodenum: Normal bulb and patchy erythema in the descending duodenum without ulcers or erosions Intervention: Biopsies as noted above Impression and Post Procedure Diagnosis: Endoscopy Findings: STOMACH: Moderate diffuse gastric erythema - biopsies were obtained DUODENUM: Patchy erythema in the descending duodenum without ulcers or erosions Plan: OK to discharge home on twice daily PPI. I will contact patient with biopsy results Above findings were reviewed with the patient. BIOPSIES SHOWED: A. Small bowel, biopsy: Duodenal mucosa with predominantly preserved villi and mild features of chronic/non-specific duodenitis. B. Gastric antrum, biopsy: Gastric antral mucosa with minimal chronic inactive gastritis; negative for H pylori and dysplasia, and detached strips of duodenal-type epithelium (likely contaminant but cannot completely exclude intestinal metaplasia). C. Gastric body, biopsy: Gastric body mucosa with minimal chronic inactive gastritis; negative for H pylori, intestinal metaplasia and dysplasia
[2023-06-29] MEDS: Acetaminophen 325 MG TABLET 650 MG PO (17:24)
[2023-06-29] MEDS: gemfibroziL 600 MG TABLET PO (17:24)
[2023-06-29] MEDS: 0.9 % Sodium Chloride Flush 3 ML SYRINGE IVFLUSH (17:25)
--- NOTE | 2023-06-29 17:36 | P.DS_ITS ---
DS: Providers Provider Date of Service: 06/29/23 Date of admission: 06/27/23 21:07 Primary care physician: JIMY Reagan Consults: 06/27/23 21:04 Consult to Gastroenterology Routine Consulting Provider: Osmany Valle Reason for consultation: Duodenitis versus duodenal ulcer 06/27/23 21:16 Addiction Medicine Routine Consulting Provider: Addiction Covering Reason for consultation: Alcohol use disorder 06/28/23 03:27 Addiction Medicine Routine Consulting Provider: Addiction Covering Reason for consultation: meets positive audit c screening DS: Diagnosis Discharge Diagnosis (1) Duodenitis: Status: Acute (2) Epigastric abdominal tenderness: Status: Acute DS: Summary Hospital Course Hospital Course: History and physical as per admitting provider. Pt is a 47-year-old male with a PMH significant for HTN, anxiety, and alcohol dependence who presents to the ED for evaluation of intermittent severe epigastric pain since last night. Pt reports symptoms began while sitting and watching TV. States there is a constant pressure and intermittent sharp, stabbing pain in the epigastric region that wraps around to right side. Pain lasts few a few seconds then resolves but returns in 20-30 minutes. Reports the area is tender to the touch. Also complains of chronic non-bloody diarrhea for many months for which he sees GI and has planned outpatient colonoscopy. Denies any bright red blood or dark- colored stools. Pt has a long history of heavy alcohol use though reports recently cut back and now only drinks 4-5 beers nightly. Denies SOB. No fever, chills. In the ED pt was afebrile but tachycardic up to 108 and tachypneic up to 22. Labs were significant for mild transaminitis of AST 39 and ALT 41, otherwise grossly unremarkable. No leukocytosis. Stable H&H of 15.7/43.3. No significant electrolyte abnormalities. Renal function WNL. Lipase WNL at 36. Serial troponins negative. CXR showed no radiographic evidence of acute car diopulmonary disease. CT of abdomen and pelvis found inflammatory fat stranding around the 2nd portion of duodenum that does not appear to involve the adjacent pancreatic head, favoring duodenitis or duodenal ulcer. Also found prominent liver and diffuse hepatic steatosis. Abdominal ultrasound found hepatic steatosis, otherwise unremarkable RUQ exam. EKG demonstrated normal sinus rhythm without evidence of significant ST elevations or depressions. Pt was treated with GI cocktail, Protonix, ondansetron, morphine, Tums, ketorolac, and Dilaudid. Pt will be admitted to the hospital for treatment and further evaluation of intractable abdominal pain likely secondary to duodenitis/duodenal ulcer in the setting alcohol dependence. 47-year-old man treated for epigastric pain, started on IV Protonix, seen by GI, had EGD today which showed gastritis and minimal duodenitis. Diet advanced, patient will be sent home with b.i.d. PPI. He has a history of daily alcohol abuse and was encouraged on alcohol cessation. He had no signs of alcohol withdrawal during admission. He was noted to have hypertriglyceridemia with triglycerides of 1117, after IV fluids did come down to 488. Started on Lopid, recommended low-fat diet, weight loss. Hypertension. Continue Norvasc and lisinopril Anxiety. Continue lorazepam Time Attestation Discharge Coordination Time (in mins): 40 Quality: Safe Use of Opioids Does Pt have an Active Cancer Diagnosis on the Problem List?: No Quality: Stroke Does the patient have a stroke diagnosis?: No Physical Exam Vital Signs: Vital Signs: Last Vital Signs Temp 97.6 F 06/29/23 17:20 Pulse 91 06/29/23 17:20 Resp 15 06/29/23 17:20 BP 113/72 06/29/23 17:20 Pulse Ox 98 06/29/23 17:20 O2 Del Method Room Air 06/29/23 17:20 BMI result Body Mass Index 31.2 Appearing in no acute distress head is normocephalic atraumatic eyes pupils are PERRLA sclera is anicteric mouth throat mucous membranes are intact and moist neck is supple no lymphadenopathy, no JVD noted lung sounds are clear to auscultation heart regular rate rhythm, clear S1, S2 positive bowel sounds, abdomen is soft, nontender neuro patient is alert x3, no focal deficits DS: Data Data Completed and Pending Pending studies at discharge: Pending at discharge 06/29/23 16:36 Surgical [PTH] Routine Labs on day of discharge: Laboratory Results - last 24 hr 06/29/23 05:28 WBC 7.6 RBC 3.95 L Hgb 13.1 L Hct 38.3 L MCV 97.0 MCH 33.2 H MCHC 34.2 RDW 11.9 Plt Count 214 D MPV 8.8 L Immature Gran % (Auto) 0.3 Neut % (Auto) 72.0 Lymph % (Auto) 18.5 L [place] % (Auto) 7.8 Eos % (Auto) 1.3 Baso % (Auto) 0.1 Lymph # (Auto) 1.4 [place] # (Auto) 0.6 Eos # (Auto) 0.1 Baso # (Auto) 0.0 Abs Immat Gran (auto) 0.02 Absolute Neuts (auto) 5.5 Absolute Nucleated RBC 0.000 Nucleated RBC % (auto) 0.0 Sodium 137 Potassium 4.3 Chloride 102 Carbon Dioxide 30 H Anion Gap 9 L BUN 9 Creatinine 0.77 Estim Creat Clear Calc 151.2 Estimated GFR > 60 Random Glucose 115 Calcium 8.9 Triglycerides 488 H Cholesterol 234 H LDL Cholesterol, Calc TNP HDL Cholesterol 35 L Discharge Plan Discharge Anticipated Discharge Date/Time: 06/29/23 17:19 Patient Disposition: Home, Self-Care Discharge Diagnosis: Duodenitis Referrals: Abdifatah Garcia [employer] [Primary Care Provider] - 1 Week Discharge Medications: New gemfibrozil 600 mg Tablet 600 mg PO DAILY Qty: 30 0RF Prilosec 10 mg susp,delayed release for recon 20 mg PO BID Qty: 60 0RF Continued gabapentin 600 mg tablet 600 mg PO TID 30 Days Qty: 90 1RF amlodipine 5 mg tablet 5 mg PO DAILY Qty: 90 1RF hydrochlorothiazide 12.5 mg tablet 12.5 mg PO DAILY Qty: 90 0RF lisinopril 40 mg tablet 40 mg PO DAILY Qty: 90 1RF dextroamphetamine-amphetamine 20 mg tablet 1 tab PO BID@0900,1500 lorazepam 1 mg tablet 1 mg PO DAILY PRN (Reason: anxiety) loperamide [Imodium A-D] 2 mg tablet 2 mg PO QID PRN (Reason: loose stool) Qty: 90 3RF Discharge Orders: Discharge Order (Routine); Ordered 06/29/23 Ordered By: Shazia Wisdom Diet: Advance to usual diet Activity on Discharge: As tolerated Stand Alone Forms: Patient Portal Discharge page Print Language: Salvadorean Care Plan Goals: You will be started on Prilosec 20 mg twice daily Health Concerns: Duodenitis, gastric erythema Plan of Treatment: Follow-up with primary care provider as needed to just new medications as necessary Take all medications as prescribed Assessment: See discharge summary
== END 2023-06-29 18:27 | disposition home or self-care (01) | DRG 241 ==
LOC: HO.ED 16:25 → HO.EDOVER 21:20 → HO.S3 06-28 00:12
PROVIDERS: Internal Medicine; Internal Medicine Gastroenterology; Nurse Practitioner Family; Physician Assistant Medical; Admitting Provider Student in an Organized Health Care Education/Training Program; Emergency Provider Emergency Medicine; PCP Nurse Practitioner Family; Visit Provider Nurse Practitioner Acute Care
PROC: 0DJ08ZZ Inspection of Upper Intestinal Tract, Via Natural or Artificial Opening Endoscopic (ICD-10-PCS; CPT 43235; principal; 2023-06-29 17:00)
DX: K29.70 Gastritis, unspecified, without bleeding (principal); E78.1 Pure hyperglyceridemia; F10.20 Alcohol dependence, uncomplicated; K29.80 Duodenitis without bleeding; F41.9 Anxiety disorder, unspecified; I10 Essential (primary) hypertension; Z87.891 Personal history of nicotine dependence; Z79.899 Other long term (current) drug therapy
CPT/HCPCS: 43239; 36415; 71046; 74176; 76705; 80048; 80053; 80061; 80076; 82947; 83605; 83615; 83690; 83735; 84443; 84478; 84484; 85025; 85027; 85610; 88305; 88313; 88342; 93005; 99221; 99285; C9113; J1170; J1885; J2060; J2250; J2270; J2405; J2704; J3010; J7120

== ENCOUNTER → 2023-06-27 13:11 | Outpatient (BNV) | payer OTHER, SELFPAY | PROVIDERS: Admitting Provider Student in an Organized Health Care Education/Training Program; Emergency Provider Emergency Medicine; PCP Nurse Practitioner Family; Visit Provider Internal Medicine | DX: R07.9 Chest pain, unspecified (principal) | CPT/HCPCS: 93010 ==

== ENCOUNTER → 2023-06-27 21:07 | Outpatient (BNV) | payer OTHER, SELFPAY | PROVIDERS: Admitting Provider Student in an Organized Health Care Education/Training Program; Emergency Provider Emergency Medicine; PCP Nurse Practitioner Family; Visit Provider Physician Assistant Medical | DX: K29.80 Duodenitis without bleeding (principal); R10.816 Epigastric abdominal tenderness | CPT/HCPCS: 99223; 99232; 99239 ==

== ENCOUNTER → 2023-06-27 21:07 | Outpatient (BNV) | payer OTHER, SELFPAY | PROVIDERS: Admitting Provider Student in an Organized Health Care Education/Training Program; Emergency Provider Emergency Medicine; PCP Nurse Practitioner Family; Visit Provider Internal Medicine Gastroenterology | DX: R10.816 Epigastric abdominal tenderness (principal); K29.80 Duodenitis without bleeding; R19.7 Diarrhea, unspecified | CPT/HCPCS: 99499 ==

== ENCOUNTER → 2023-06-27 21:07 | Outpatient (BNV) | payer OTHER, SELFPAY | PROVIDERS: Admitting Provider Student in an Organized Health Care Education/Training Program; Emergency Provider Emergency Medicine; PCP Nurse Practitioner Family; Visit Provider Internal Medicine Gastroenterology | DX: Z12.11 Encounter for screening for malignant neoplasm of colon (principal); Z86.010 Personal history of colon polyps; K64.0 First degree hemorrhoids | CPT/HCPCS: 45378 ==

== ENCOUNTER 2023-07-17 09:37 | Day surgery (SDC) | payer OTHER, SELFPAY ==
--- NOTE | 2023-07-15 12:27 | HO.ANESPROP2 ---
Documented by User: Sue Young NP 07/15/23 12:28 HPI - Anesthesia Eval Consult details Narrative: 47yo M for Colonoscopy PMF Active Problems Active Problems: All Active Problems Duodenitis (Acute) Weight gain (Acute) Yonas's thyroiditis (Acute) Tubular adenoma of colon (Acute) Alcohol use disorder (Acute) Chronic pain syndrome (Acute) Low libido (Acute) Elevated fasting blood sugar (Acute) Dyslipidemia (Acute) HTN (hypertension) (Acute) Lumbar back pain with radiculopathy affecting right lower extremity (Acute) Elevated liver enzymes (Acute) Hyperkalemia (Acute) Dribbling following urination (Acute) Past Medical History Medical History Fatty liver Pre-op examination Screening for colon cancer Physical exam Hematoma of nasal septum Family History Family History Mother Substance use disorder Mental health disorder Father Mental health disorder Maternal Grandmother Mental health disorder Maternal Uncle Mental health disorder Maternal Grandfather Skin cancer Maternal Uncle Cancer Maternal Aunt Breast cancer Surgical History Surgical History Hx of esophagogastroduodenoscopy H/O knee surgery Hx of tonsillectomy H/O colonoscopy Previous back surgery History of Problems with Anesthesia: No Social History Social History Household Members: Family Housing: House Do you presently have visiting nurse or other home services: No Patient Tobacco Use Status: Former Tobacco user Quit Date: 2004 Tobacco use type: Cigarette Years Smoked: 15 e-Cigarette/Vaping Use: Never Used Second Hand Smoke Exposure: No Use of substances other than those prescribed or required for medical reasons: Yes Substance Use Type: Marijuana Are you DNR?: No Advance Directives: No Advance Directives Information Provided: Yes service: No Current occupational status: unemployed Cognitive needs: No Hearing needs: No Vision needs: No Meds Allergies Allergy/AdvReac Type Severity Reaction Status Date / Time No Known Allergies Allergy Verified 07/17/23 10:13 Home Medications ?Medication ?Instructions ?Recorded ?Confirmed ?Last Taken ?Type dextroamphetamine-amphetamine 20 1 tab PO BID@0900,1500 11/25/21 07/17/23 06/26/23 History mg tablet lorazepam 1 mg tablet 1 mg PO DAILY PRN anxiety 11/25/21 07/17/23 Unknown History Assessment and Plan Assessment Anesthesia Assessment: Chart Reviewed Final Anesthetic Review History of Problems with Anesthesia: No Documented by User: Shraddha Downing MD 07/17/23 11:15 [facility] Past Medical History Medical History Fatty liver Pre-op examination Screening for colon cancer Physical exam Hematoma of nasal septum Family History Family History Mother Substance use disorder Mental health disorder Father Mental health disorder Maternal Grandmother Mental health disorder Maternal Uncle Mental health disorder Maternal Grandfather Skin cancer Maternal Uncle Cancer Maternal Aunt Breast cancer Family history of problems with anesthesia: No Surgical History Surgical History Hx of esophagogastroduodenoscopy H/O knee surgery Hx of tonsillectomy H/O colonoscopy Previous back surgery History of Problems with Anesthesia: No Social History Social History Household Members: Family Housing: House Do you presently have visiting nurse or other home services: No Patient Tobacco Use Status: Former Tobacco user Quit Date: 2004 Tobacco use type: Cigarette Years Smoked: 15 e-Cigarette/Vaping Use: Never Used Second Hand Smoke Exposure: No Use of substances other than those prescribed or required for medical reasons: Yes Substance Use Type: Marijuana Are you DNR?: No Advance Directives: No Advance Directives Information Provided: Yes service: No Current occupational status: unemployed Cognitive needs: No Hearing needs: No Vision needs: No Meds Allergies Allergy/AdvReac Type Severity Reaction Status Date / Time No Known Allergies Allergy Verified 07/17/23 10:13 Home Medications ?Medication ?Instructions ?Recorded ?Confirmed ?Last Taken ?Type dextroamphetamine-amphetamine 20 1 tab PO BID@0900,1500 11/25/21 07/17/23 06/26/23 History mg tablet lorazepam 1 mg tablet 1 mg PO DAILY PRN anxiety 11/25/21 07/17/23 Unknown History Exam Airway Mallampati Class: II TM Dist: >3cm Neck ROM: Full Heart: rrr Lungs: cta Assessment and Plan Assessment Anesthesia Assessment: Anesthesia Plan Discussed Final Anesthetic Review Family History of Problems with Anesthesia: No History of Problems with Anesthesia: No NPO: Yes ASA Class: III Final Preanesthetic Review: No Changes in Pt Med Stat, Meds/Allgs Chart Reviewed, Consent Obtained/Reviewed and Anes Risks/Benef Reviewed Patient Risk: Intermediate Procedure Risk: Low Anesthetic Plan Anesthetic Plan: MAC: Disposition: Standard PACU
[2023-07-15 14:23] VITALS: BMI 30.6
[2023-07-17 10:15] VITALS: BMI 29.7
--- NOTE | 2023-07-17 10:25 | MHC.SHP ---
Pre-Procedural Eval Section A - 24 Hr Update-Section A only Date of Service: 07/17/23 Section B - Complete if H&P > 30 days Chief Complaint: Benign neoplasm of colon, unspecified Relevant Family History (Specify if Yes): No Relevant Social History: None Present Medications: see Short Stay Collaborative assessment Medical History: Significant History (Fatty liver Pre-op examination Screening for colon cancer Physical exam Hematoma of nasal septum) History of Previous Operations: Relevant previous surgery/procedure and date(s) (H/O knee surgery Hx of tonsillectomy H/O colonoscopy Previous back surgery) Allergies: Allergies Allergy/AdvReac Type Severity Reaction Status Date / Time No Known Allergies Allergy Verified 07/17/23 10:13 Review of Systems Sugical H&P ROS: Negative: Constitution, Cardiovascular, Respiratory, Neurological, Psychiatric, Hem-Onc, Allergic/Immunologic, Gastrointestinal, Genitourinary, Musculoskeletal, Integumentary, Endocrine and Eyes/Ears/Nose/Throat Exam Surgical H&P Exam: Normal: HEENT, Normal: Heart, Normal: Lungs, Normal: Extremities, Normal: Abdomen, Normal: Skin and Normal: Neurological Plan Diagnosis/Plan: Unchanged I have reviewed the history and physical and performed a pertinent physical examination on my patient. No changes have occurred unless specified. Time Spent With Patient Time: Total time managing care of this patient today ____ minutes.
[2023-07-17 10:26] VITALS: BP 125/71; PULSE 60; RESP 16; TEMP 36.2; O2SAT 97
[2023-07-17] MEDS: Lactated Ringers 1,000 ML 100 ML IVCONT (10:35)
--- NOTE | 2023-07-17 10:55 | HO.OPN-COLON ---
Colonoscopy Operative Note Operative Note Date of Service: 07/17/23 Narrative: Operative Information Procedure Description: Colonoscopy Indication: hx of colon polyps Anesthesia: MAC COLONOSCOPY Instrument: Olympus variable stiffness pediatric scope 190L Colonoscopy Monitoring: Vital signs and clinical assessment, continuous EKG monitoring, Pulse oximetry, Carbon Dioxide monitoring and blood pressure monitoring were done throughout the procedure. Colon withdrawal time was 8 minutes. Procedure: The patient was placed in the left lateral decubitis position and pre-procedure medications were administered. After a digital rectal examination of the ano-rectum, the video colonoscope was inserted into the rectum and advanced through the colon to the cecum/TI. The colonoscope was slowly withdrawn in a retrograde panoramic fashion and the colon mucosa was carefully examined including a retroflexed view of the rectum. Findings and interventions are described below. Procedure Difficulty: easy Findings: Terminal Ileum-normal Cecum:normal Right sided retroflexion- normal Ascending Colon: normal Transverse Colon -normal Descending Colon:normal Sigmoid Colon: normal Rectum: Retroflexion with small internal hemorrhoids seen, grade I Anorectum - normal Intervention: none Colon preparation: Martelle Bowel Preparation Scale Right colon; 2 Transverse colon: 3 Left colon; 3 (0 = Unprepared colon segment with mucosa not seen due to solid stool that cannot be cleared. 1 = Portion of mucosa of the colon segment seen, but other areas of the colon segment not well seen due to staining, residual stool and/or opaque liquid. 2 = Minor amount of residual staining, small fragments of stool and/or opaque liquid, but mucosa of colon segment seen well. 3 = Entire mucosa of colon segment seen well with no residual staining, small fragments of stool or opaque liquid) Impression and Post Procedure Diagnosis: internal hemorrhoids Plan: High fiber diet leaflet Avoid straining at stool, epsom salts and sitz bath, anusol supps or cream Repeat Colonoscopy in 10 years or earlier if clinically indicated Above findings were reviewed with the patient and relevant handouts were provided if indicated.
[2023-07-17 11:30] VITALS: BP 103/68; PULSE 68; RESP 12; TEMP 36.1; O2SAT 97
[2023-07-17 11:45] VITALS: BP 114/75; PULSE 52; RESP 14; O2SAT 98
== END 2023-07-17 12:21 | disposition home or self-care (01) ==
PROVIDERS: PCP Nurse Practitioner Family; Visit Provider Internal Medicine Gastroenterology
PROC: 0DJD8ZZ Inspection of Lower Intestinal Tract, Via Natural or Artificial Opening Endoscopic (ICD-10-PCS; CPT 45378; principal; 2023-07-17 11:30)
DX: Z12.11 Encounter for screening for malignant neoplasm of colon (principal); K64.0 First degree hemorrhoids; Z86.010 Personal history of colon polyps
CPT/HCPCS: 45378; J2250; J2704

== ENCOUNTER → 2023-07-17 09:37 | Outpatient (BNV) | payer OTHER, SELFPAY | PROVIDERS: PCP Nurse Practitioner Family; Visit Provider Internal Medicine Gastroenterology | DX: Z12.11 Encounter for screening for malignant neoplasm of colon (principal); Z86.010 Personal history of colon polyps; K64.0 First degree hemorrhoids | CPT/HCPCS: 45378 ==

== ENCOUNTER 2023-08-18 09:58 | Outpatient (AMB) | payer OTHER, SELFPAY ==
--- NOTE | 2023-08-18 10:03 | MHC.PC.OV ---
Vital Signs 08/18/23 10:05 Height 6 ft Weight 220 lb BMI 29.8 BP 120/80 Blood Pressure Location Lt brachial Position Sitting Pulse 70 Pulse Source Pulse Oximeter Pulse Oximetry (%) 97 Oxygen Delivery Method Room Air Intake Visit Reasons: 6 month follow up Intake Note: Patient here for HTN f/u. Allergies No Known Allergies Allergy (Verified 08/18/23 10:06) Medication List - Last Reconciled 08/18/23 by JIMY Larios amlodipine 5 mg PO DAILY dextroamphetamine-amphetamine 20 mg 1 tab PO BID@0900,1500 gabapentin 600 mg PO TID 30 days gemfibrozil 600 mg PO DAILY hydrochlorothiazide 12.5 mg PO DAILY lisinopril 40 mg PO DAILY lorazepam 1 mg PO DAILY PRN Tobacco use date assessed: 08/18/23 Dental Screening Dental Screen Date: 08/18/23 Did you have a dental visit in the last 12 months?: No Did you have a dental problem in the last 6 months where you did not have access to dental care?: No Was dental information given to patient?: Patient has dentist HPI 6 month follow up HPI Details HTN: Blood pressure is stable, managed with amlodipine 5mg, hydrochlorothiazide 12.5mg, and lisinopril 40mg. Dyslipidemia: Pt is currently taking gemfibrozil 600mg. Will order labs. Denies chest pain, shortness of breath, headache, dizziness, and blurred vision. Pt has cut down on his alcohol use significantly. [facility] Medical History Fatty liver Pre-op examination Screening for colon cancer Physical exam Hematoma of nasal septum Surgical History Hx of esophagogastroduodenoscopy H/O knee surgery Hx of tonsillectomy H/O colonoscopy Previous back surgery Family History Mother Substance use disorder Mental health disorder Father Mental health disorder Maternal Grandmother Mental health disorder Maternal Uncle Mental health disorder Maternal Grandfather Skin cancer Maternal Uncle Cancer Maternal Aunt Breast cancer Social History Household Members: Family Housing: House Do you presently have visiting nurse or other home services: No Patient Tobacco Use Status: Former Tobacco user Tobacco use type: Cigarette Years Smoked: 15 e-Cigarette/Vaping Use: Never Used Second Hand Smoke Exposure: No Substance Use Type: Marijuana service: No Current occupational status: unemployed Cognitive needs: No Hearing needs: No Vision needs: No Questionnaire PHQ-9 Over the last 2 weeks, how often have you been bothered by any of the following problems? 1. Little interest or pleasure in doing things: more than half the days 2. Feeling down, depressed, or hopeless: more than half the days 3. Trouble falling or staying asleep, or sleeping too much: more than half the days 4. Feeling tired or having little energy: more than half the days 5. Poor appetite or overeating: more than half the days 6. Feeling bad about yourself - or that you are a failure or have let yourself or your family down: more than half the days 7. Trouble concentrating on things, such as reading the newspaper or watching television: several days 8. Moving or speaking so slowly that other people could have noticed. Or the opposite - being so fidgety or restless that you have been moving around a lot more than usual: several days 9. Thoughts that you would be better off or of hurting yourself in some way: not at all Total score: 14 Depression Screening Interpretation: Positive Depression Screening Done: Yes 08799 - PHQ-9 Billing: Yes Source: Developed by Drs. Bladimir Maldonado, Jessie Charlton, Abebe Scherer and colleagues, with an educational delilah from [facility]. Thrive Questionnaire Date Thrive assessed: 06/28/23 AUDIT C Alcohol Use Questionnaire (AUDIT-C) 1. How often do you have a drink containing alcohol?: 4 or more times a week 2. How many drinks containing alcohol do you have on a typical day when you are drinking?: 1 or 2 3. How often do you have six or more drinks on one occasion?: Never Total Score: 4 Score Reviewed/Action Taken: No LYNNETTE-7 AMB Questionnaire LYNNETTE-7 Date LYNNETTE - 7 assessed: 08/18/23 Feeling nervous, anxious, or on edge: 1 = Several days Not being able to stop or control worryin = More than half the days Worrying too much about different things: 2 = More than half the days Trouble relaxin = Several days Being so restless that it is hard to sit still: 0 = Not at all Becoming easily annoyed or irritable: 1 = Several days Feeling afraid as if something awful might happen: 1 = Several days Total LYNNETTE-7 score (0-4 normal; 5-9 mild; 10-14 moderate; 15-21 severe): 8 Source: Developed by Drs. Bladimir Maldonado, Jessie Charlton, Abebe Scherer and colleagues, with an educational delilah from [facility]. LYNNETTE-7 Assessment Billing LYNNETTE-7 Assessment Tool: LYNNETTE-7 Assessment 43953 Review of Systems Const Reports as per HPI Physical exam (Primary Care) Vital Signs: Last Vital Signs Pulse 70 08/18/23 10:05 BP 120/80 08/18/23 10:05 Pulse Ox 97 08/18/23 10:05 Oxygen Delivery Method Room Air 08/18/23 10:05 BMI result Body Mass Index 29.8 Tobacco/Smoking Status: Tobacco use Status Tobacco use date assessed 08/18/23 08/18/23 10:08 Patient Tobacco Use Status Former Tobacco user 08/18/23 10:08 Tobacco use type Cigarette 08/18/23 10:08 e-Cigarette/Vaping Use Never Used 08/18/23 10:08 Depression Screening Interpretation: Positive Thrive Assessment: Date of Thrive Assessment Date Thrive assessed 06/28/23 08/18/23 10:08 Const General: cooperative Orientation/consciousness: patient oriented x3 Resp Effort & Inspection: normal respiratory effort Auscultation: clear to auscultation bilaterally Cardio Rate: regular rate Rhythm: regular rhythm Heart sounds: S1 normal heart sound present and S2 normal heart sound present Neuro General: patient oriented x3 Extrem Right lower extremity: no edema Left lower extremity: no edema Psych Appearance: grossly normal Mental Status: mental status grossly normal Speech and movement: Normal speech and movement present Affect: normal affect Attitude: cooperative Thought process: Normal thought process present Thought content: Normal thought content present Insight: Good insight present (Psych) Judgement: Good judgement present (Psych) Assessment and Plan Assessment & Plan (1) HTN (hypertension): Code(s): I10 - Essential (primary) hypertension Plan: Stable, labs ordered (2) Dyslipidemia: Code(s): E78.5 - Hyperlipidemia, unspecified Plan: Labs ordered Plan The patient agreed to the use of a medical billing supervisor for this encounter. Scribed for JIMY Sullivan by Xiomara Hazel medical billing supervisor, on 08/18/2023 at 10:15 EST. Orders: Orders Comprehensive [place]. Panel Fast Today E78.5 - Hyperlipidemia, unspecified, I10 - Essential (primary) hypertension TSH reflex Free T4 Today E78.5 - Hyperlipidemia, unspecified, I10 - Essential (primary) hypertension UA CC w/rflx Micro + Cult Today E78.5 - Hyperlipidemia, unspecified, I10 - Essential (primary) hypertension Lipid Panel Today E78.5 - Hyperlipidemia, unspecified, I10 - Essential (primary) hypertension Complete Blood Count Auto Diff Today E78.5 - Hyperlipidemia, unspecified, I10 - Essential (primary) hypertension Coding Level of Care Code Est Pt Level 3 (47927) Diagnoses HTN (hypertension) I10 Dyslipidemia E78.5 Additional Codes LYNNETTE-7 Assessment Billing - LYNNETTE-7 Assessment Tool: LYNNETTE-7 Assessment [id number] ([id number])
[2023-08-18 10:05] VITALS: BP 120/80; PULSE 70; O2SAT 97; BMI 29.8
== END 2023-08-18 11:18 | disposition home or self-care (01) ==
PROVIDERS: PCP Nurse Practitioner Family; Visit Provider Nurse Practitioner Family
DX: I10 Essential (primary) hypertension (principal); E78.5 Hyperlipidemia, unspecified
CPT/HCPCS: 99214

== ENCOUNTER 2023-11-10 15:17 | Outpatient (AMB) | payer OTHER, SELFPAY ==
[2023-11-10 15:18] VITALS: BP 118/78; PULSE 75; O2SAT 97; BMI 28.7
--- NOTE | 2023-11-10 15:18 | MHC.PC.OV ---
Vital Signs 11/10/23 15:18 Height 6 ft Weight 212 lb BMI 28.7 BP 118/78 Blood Pressure Location Rt brachial Position Sitting Pulse 75 Pulse Source Pulse Oximeter Pulse Oximetry (%) 97 Intake Visit Reasons: Lump on back-referral Intake Note: pt is here for lump on back- requesting referral Pot Liner Required: No Allergies No Known Allergies Allergy (Verified 11/10/23 15:19) Tobacco use date assessed: 11/10/23 Dental Screening Dental Screen Date: 08/18/23 HPI Lump on back-referral HPI Details Pt reports a large cystic lesion to his mid back. He reports that he has had this for several years. He reports that this is growing in size and becoming more tender. Will refer to general surgery. Denies fever, chills, and dizziness. [facility] Medical History Fatty liver Pre-op examination Screening for colon cancer Physical exam Hematoma of nasal septum Surgical History Hx of esophagogastroduodenoscopy H/O knee surgery Hx of tonsillectomy H/O colonoscopy Previous back surgery Family History Mother Substance use disorder Mental health disorder Father Mental health disorder Maternal Grandmother Mental health disorder Maternal Uncle Mental health disorder Maternal Grandfather Skin cancer Maternal Uncle Cancer Maternal Aunt Breast cancer Social History Household Members: Family Housing: House Do you presently have visiting nurse or other home services: No Patient Tobacco Use Status: Former Tobacco user Tobacco use type: Cigarette Years Smoked: 15 e-Cigarette/Vaping Use: Never Used Second Hand Smoke Exposure: No Substance Use Type: Marijuana service: No Current occupational status: unemployed Cognitive needs: No Hearing needs: No Vision needs: No Questionnaire PHQ-9 Over the last 2 weeks, how often have you been bothered by any of the following problems? 1. Little interest or pleasure in doing things: nearly every day 2. Feeling down, depressed, or hopeless: nearly every day 3. Trouble falling or staying asleep, or sleeping too much: nearly every day 4. Feeling tired or having little energy: nearly every day 5. Poor appetite or overeating: nearly every day 6. Feeling bad about yourself - or that you are a failure or have let yourself or your family down: nearly every day 7. Trouble concentrating on things, such as reading the newspaper or watching television: several days 8. Moving or speaking so slowly that other people could have noticed. Or the opposite - being so fidgety or restless that you have been moving around a lot more than usual: several days 9. Thoughts that you would be better off or of hurting yourself in some way: not at all Total score: 20 Depression Screening Interpretation: Positive Depression Screening Done: Yes 01121 - PHQ-9 Billing: Yes Source: Developed by Drs. Bladimir Maldonado, Jessie Charlton, Abebe Scherer and colleagues, with an educational delilah from [email or web address]. Thrive Questionnaire Date Thrive assessed: 11/10/23 I am a: Patient What is your living situation today?: I have a steady place to live Within the past 12 months, did the food you bought not last and you didn't have the money to get more?: Never true Within the past 12 months, did you worry whether your food would run out before you got money to buy more?: Never true Do you have trouble paying for medicines?: No Do you have trouble getting transportation to medical appointments?: No Do you have trouble paying your heating and electricity bill?: No Do you have trouble taking care of your child, family member or friend?: No Do you have trouble with day-to-day activities such as bathing, preparing meals, shopping, managing finances, etc.?: Yes Are you currently unemployed and looking for a job?: No Are you interested in more education?: Yes Please select the resources that you would like help with: None Currently or been in a relationship where the following occur: No concerns reported THRIVE Score: 0 AUDIT C Alcohol Use Questionnaire (AUDIT-C) 1. How often do you have a drink containing alcohol?: 4 or more times a week 2. How many drinks containing alcohol do you have on a typical day when you are drinking?: 3 or 4 3. How often do you have six or more drinks on one occasion?: Less than monthly Total Score: 6 Score Reviewed/Action Taken: Yes LYNNETTE-7 AMB Questionnaire LYNNETTE-7 Date LYNNETTE - 7 assessed: 11/10/23 Feeling nervous, anxious, or on edge: 3 = Nearly every day Not being able to stop or control worryin = More than half the days Worrying too much about different things: 3 = Nearly every day Trouble relaxin = More than half the days Being so restless that it is hard to sit still: 0 = Not at all Becoming easily annoyed or irritable: 1 = Several days Feeling afraid as if something awful might happen: 1 = Several days Total LYNNETTE-7 score (0-4 normal; 5-9 mild; 10-14 moderate; 15-21 severe): 12 Source: Developed by Drs. Bladimir Maldonado, Jessie Charlton, Abebe Scherer and colleagues, with an educational delilah from [email or web address]. LYNNETTE-7 Assessment Billing LYNNETTE-7 Assessment Tool: LYNNETTE-7 Assessment 72022 Review of Systems Const Reports as per HPI Physical exam (Primary Care) Vital Signs: Last Vital Signs Pulse 75 11/10/23 15:18 BP 118/78 11/10/23 15:18 Pulse Ox 97 11/10/23 15:18 BMI result Body Mass Index 28.7 Tobacco/Smoking Status: Tobacco use Status Tobacco use date assessed 11/10/23 11/10/23 15:22 Patient Tobacco Use Status Former Tobacco user 11/10/23 15:22 Tobacco use type Cigarette 11/10/23 15:22 e-Cigarette/Vaping Use Never Used 11/10/23 15:22 PHQ-9: PHQ-9 Score PHQ-9: Total score 20 11/10/23 15:25 Depression Screening Interpretation: Positive Thrive Assessment: Date of Thrive Assessment Date Thrive assessed 11/10/23 11/10/23 15:22 Currently or been in a relationship where the following occur: No concerns reported Const General: cooperative Orientation/consciousness: patient oriented x3 Resp Effort & Inspection: normal respiratory effort Auscultation: clear to auscultation bilaterally Cardio Rate: regular rate Rhythm: regular rhythm Heart sounds: S1 normal heart sound present and S2 normal heart sound present Skin Other: mid back just left of spine with large cystic lesion, fluctuant, slightly tender with touch, no surrounding erythema Neuro General: patient oriented x3 Psych Appearance: grossly normal Mental Status: mental status grossly normal Speech and movement: Normal speech and movement present Affect: normal affect Attitude: cooperative Thought process: Normal thought process present Thought content: Normal thought content present Insight: Good insight present (Psych) Judgement: Good judgement present (Psych) Assessment and Plan Assessment & Plan (1) Abscess: Code(s): L02.91 - Cutaneous abscess, unspecified Plan: Referred to general surgery Plan The patient agreed to the use of a dental assistant medical assistant for this encounter. Scribed for JIMY Sullivan by Xiomara Hazel dental assistant medical assistant, on 11/10/2023 at 15:35 EST. Orders: Referrals General Surgery Referral L02.91 - Cutaneous abscess, unspecified Coding Level of Care Code Est Pt Level 3 (89479) Diagnoses Abscess L02.91 Additional Codes LYNNETTE-7 Assessment Billing - LYNNETTE-7 Assessment Tool: LYNNETTE-7 Assessment 99364 ([id number])
== END 2023-11-10 16:04 | disposition home or self-care (01) ==
PROVIDERS: PCP Nurse Practitioner Family; Visit Provider Nurse Practitioner Family
DX: L02.91 Cutaneous abscess, unspecified (principal)
CPT/HCPCS: 99213

== ENCOUNTER 2024-02-17 10:01 | Outpatient (AMB) | payer OTHER, SELFPAY ==
[2024-02-17 10:02] VITALS: BP 122/80; PULSE 83; O2SAT 98; BMI 29.4
--- NOTE | 2024-02-17 10:02 | MHC.PC.OV ---
Vital Signs 02/17/24 10:02 Height 6 ft Weight 217 lb BMI 29.4 BP 122/80 Blood Pressure Location Rt brachial Position Sitting Pulse 83 Pulse Source Pulse Oximeter Pulse Oximetry (%) 98 Intake Visit Reasons: 6M f/u Intake Note: pt is here for 6 month follow up Department Of Sociology Chair Required: No Accompanied by: Self / Same As Patient Allergies No Known Allergies Allergy (Verified 02/17/24 10:03) Medication List - Last Reconciled 02/17/24 by JIMY Larios amlodipine 5 mg PO DAILY dextroamphetamine-amphetamine 20 mg 1 tab PO BID@0900,1500 gabapentin 600 mg PO TID 30 days gemfibrozil 600 mg PO DAILY hydrochlorothiazide 12.5 mg PO DAILY lisinopril 40 mg PO DAILY lorazepam 1 mg PO DAILY PRN Tobacco use date assessed: 11/10/23 Dental Screening Dental Screen Date: 08/18/23 HPI 6M f/u HPI Details large abscess to mid back, increasing in size over the years, was smaller. Pt thinks he has had this for over 20 years now, would like it lanced/drained. Pt requested a referral to [facility] Gen Surg. Referral placed. Pt denies any fevers, chills, surrounding redness, drainage. He does have some tenderness to this abscess. #2 encouraged pt to get labs drawn. He reports cutting back on the drinking. ON LICENSE OF [facility] Medical History Fatty liver Pre-op examination Screening for colon cancer Physical exam Hematoma of nasal septum Surgical History Hx of esophagogastroduodenoscopy H/O knee surgery Hx of tonsillectomy H/O colonoscopy Previous back surgery Family History Mother Substance use disorder Mental health disorder Father Mental health disorder Maternal Grandmother Mental health disorder Maternal Uncle Mental health disorder Maternal Grandfather Skin cancer Maternal Uncle Cancer Maternal Aunt Breast cancer Social History Household Members: Family Housing: House Do you presently have visiting nurse or other home services: No Patient Tobacco Use Status: Former Tobacco user Tobacco use type: Cigarette Years Smoked: 15 e-Cigarette/Vaping Use: Never Used Second Hand Smoke Exposure: No Substance Use Type: Marijuana service: No Current occupational status: unemployed Cognitive needs: No Hearing needs: No Vision needs: No Questionnaire Thrive Questionnaire Date Thrive assessed: 02/17/24 I am a: Patient What is your living situation today?: I have a steady place to live Within the past 12 months, did the food you bought not last and you didn't have the money to get more?: Never true Within the past 12 months, did you worry whether your food would run out before you got money to buy more?: Never true Do you have trouble paying for medicines?: No Do you have trouble getting transportation to medical appointments?: No Do you have trouble paying your heating and electricity bill?: No Do you have trouble taking care of your child, family member or friend?: No Do you have trouble with day-to-day activities such as bathing, preparing meals, shopping, managing finances, etc.?: Yes Are you currently unemployed and looking for a job?: No Are you interested in more education?: Yes Please select the resources that you would like help with: None Currently or been in a relationship where the following occur: No concerns reported THRIVE Score: 0 LYNNETTE-7 AMB Questionnaire LYNNETTE-7 Date LYNNETTE - 7 assessed: 11/10/23 Source: Developed by Drs. Bladimir Maldonado, Jessie Charlton, Abebe Scherer and colleagues, with an educational delilah from [employer]. Physical exam (Primary Care) Vital Signs: Last Vital Signs Pulse 83 02/17/24 10:02 BP 122/80 02/17/24 10:02 Pulse Ox 98 02/17/24 10:02 BMI result Body Mass Index 29.4 Tobacco/Smoking Status: Tobacco use Status Tobacco use date assessed 11/10/23 02/17/24 10:04 Patient Tobacco Use Status Former Tobacco user 02/17/24 10:04 Tobacco use type Cigarette 02/17/24 10:04 e-Cigarette/Vaping Use Never Used 02/17/24 10:04 Thrive Assessment: Date of Thrive Assessment Date Thrive assessed 02/17/24 02/17/24 10:04 Currently or been in a relationship where the following occur: No concerns reported Const General: cooperative, healthy appearing, comfortable, no acute distress and well developed Resp Effort & Inspection: normal respiratory effort Auscultation: clear to auscultation bilaterally Cardio Rate: regular rate Rhythm: regular rhythm Heart sounds: S1 normal heart sound present and S2 normal heart sound present Skin Other: large abcess to mid back. some fluctuants, faint tenderness with touch. No surrounding erythema noted. abcess is chronic, not warm to touch. Psych Appearance: grossly normal Mental Status: mental status grossly normal Speech and movement: Normal speech and movement present Attitude: cooperative Thought process: Normal thought process present Thought content: Normal thought content present Insight: Good insight present (Psych) Judgement: Good judgement present (Psych) Coding Level of Care Code Est Pt Level 3 (92791) Diagnoses Screening for prostate cancer Z12.5 Abscess L02.91 Alcohol use disorder F10.90 Assessment & Plan Assessment & Plan (1) Screening for prostate cancer: Code(s): Z12.5 - Encounter for screening for malignant neoplasm of prostate Category: Medical (2) Abscess: Code(s): L02.91 - Cutaneous abscess, unspecified Category: Medical (3) Alcohol use disorder: Code(s): F10.90 - Alcohol use, unspecified, uncomplicated Category: Medical Plan . Orders: Orders Prostate Specific Antigen Scr Today Z12.5 - Encounter for screening for malignant neoplasm of prostate
== END 2024-02-17 10:44 | disposition home or self-care (01) ==
PROVIDERS: PCP Nurse Practitioner Family; Visit Provider Nurse Practitioner Family
DX: Z12.5 Encounter for screening for malignant neoplasm of prostate (principal); L02.91 Cutaneous abscess, unspecified; F10.90 Alcohol use, unspecified, uncomplicated

== ENCOUNTER 2024-08-18 10:01 | Outpatient (REF) | payer OTHER, SELFPAY ==
[2024-08-18 13:56] LABS: Alanine Aminotransferase 26 U/L (0-40); Albumin Level 4.7 g/dL (3.5-5.0); Alkaline Phosphatase 54 U/L (39-117); Anion Gap 11 (12-20); Aspartate Amino Transferase 32 U/L (5-37); Bilirubin Total 0.4 mg/dL (0.0-1.0); Blood Urea Nitrogen 13 mg/dL (9-16); Calcium 9.3 mg/dL (8.4-10.2); Carbon Dioxide 29 mmol/L (22-29); Chloride 104 mmol/L (96-108); Cholesterol 173 mg/dL (<200); Estimated Glomerular Filt Rate > 60; Glucose Fasting 110 mg/dL (60-99); HDL Cholesterol 51 mg/dL (>40); LDL Cholesterol Calculated 107 mg/dL (<100); Potassium 4.5 mmol/L (3.3-5.1); Sodium 139 mmol/L (135-145); Triglycerides 78 mg/dL (<150)
== END 2024-08-18 10:02 | disposition home or self-care (01) ==
LOC: HO.HMGCLDS 10:01
PROVIDERS: PCP Nurse Practitioner Family; Visit Provider Nurse Practitioner Family
DX: L02.212 Cutaneous abscess of back [any part, except buttock and flank] (principal); J34.2 Deviated nasal septum; E78.5 Hyperlipidemia, unspecified; Z79.899 Other long term (current) drug therapy; Z13.31 Encounter for screening for depression
CPT/HCPCS: 36415; 80053; 80061; 96127

== ENCOUNTER 2024-08-18 10:01 | Outpatient (AMB) | payer OTHER, SELFPAY ==
--- NOTE | 2024-08-18 10:11 | A.OFFPC_ITS ---
Vital Signs 08/18/24 10:12 Height 6 ft Weight 201 lb 8 oz BMI 27.3 BP 106/72 Blood Pressure Location Rt brachial Position Sitting Pulse 64 Pulse Source Pulse Oximeter Temp 97.9 F Temp Source Oral Pulse Oximetry (%) 97 Oxygen Delivery Method Room Air Intake Visit Reasons: 6 months f/up Intake Note: Pt is here for 6m follow up Allergies No Known Allergies Allergy (Verified 08/18/24 10:44) Medication List - Last Reconciled 08/18/24 by RONNIE Larios- amlodipine 5 mg PO DAILY atorvastatin 10 mg PO BEDTIME dextroamphetamine-amphetamine 20 mg 1 tab PO BID@0900,1500 gabapentin 600 mg PO TID 30 days lisinopril 40 mg PO DAILY lorazepam 1 mg PO DAILY PRN Tobacco use date assessed: 08/18/24 Dental Screening Dental Screen Date: 08/18/24 Did you have a dental visit in the last 12 months?: Yes Did you have a dental problem in the last 6 months where you did not have access to dental care?: No Was dental information given to patient?: Patient has dentist HPI 6 months f/up HPI Details Chief Complaint The patient complains of a large abscess on the back causing discomfort and tenderness. History of Present Illness The patient is a 49-year-old male presenting with a large abscess on the back. The abscess has been causing tenderness and discomfort, with slight tenderness upon touch, but no signs of cellulitis, erythema, or warmth were noted. The patient has a history of dyslipidemia and is currently on atorvastatin 10 mg. He is scheduled for fasting labs to monitor his lipid levels. Additionally, the patient reports a deviated nasal septum to the left, which contributes to snoring. He has seen an ENT in the past but did not follow up for corrective measures. Social History Health Maintenance Review of Systems - Integumentary: Reports tenderness and discomfort from a large abscess on the back - Respiratory: Reports snoring, denies o ther respiratory symptoms Physical Exam General: Cooperative, healthy appearing, comfortable, no acute distress and well developed Orientation: Patient oriented x3 Limitations: No limitations Head: Normal to inspection Ears: Hearing grossly normal bilaterally Nose: Fairly deviated septum to the left Face and sinus: Normal facial exam Eyes: Appearance normal, both eyes and all related structures Neck: Normal visual inspection and Yes full ROM Respiratory: Normal respiratory effort and able to speak in complete sentences. Clear to auscultation bilaterally Cardiovascular: Regular rate and rhythm. Normal S1 and S2 GI: Normal to inspection. Soft to palpation and nontender Skin: Mid back with large abscess versus lipoma, slight tenderness with touch, no signs of cellulitis or surrounding erythema or warmth or signs of infection Neuro: Patient oriented x3 Extremities: Normal to inspection Results Plan The patient will be referred to general surgery for evaluation and management of the back abscess, as his insurance covers this facility. He is also referred to an ENT specialist for assessment of his deviated nasal septum, which has been contributing to snoring. For dyslipidemia, the patient is advised to continue atorvastatin 10 mg and will undergo fasting labs to monitor lipid levels. Discussion Notes I discussed with the patient the need for surgical evaluation of the back abscess and the referral to ENT for his deviated septum. We also reviewed the importance of monitoring his lipid levels and continuing his current medication regimen. Patient Instructions - Follow up with general surgery for the back abscess as soon as possible. - Schedule an appointment with ENT for e valuation of the deviated septum. - Continue taking atorvastatin 10 mg rachelle ly. - Complete fasting labs as scheduled to monitor cholesterol levels. [facility] Medical History Fatty liver Pre-op examination Screening for colon cancer Physical exam Hematoma of nasal septum Surgical History Hx of esophagogastroduodenoscopy H/O knee surgery Hx of tonsillectomy H/O colonoscopy Previous back surgery Family History Mother Substance use disorder Mental health disorder Father Mental health disorder Maternal Grandmother Mental health disorder Maternal Uncle Mental health disorder Maternal Grandfather Skin cancer Maternal Uncle Cancer Maternal Aunt Breast cancer Social History Household Members: Family Housing: House Do you presently have visiting nurse or other home services: No Patient Tobacco Use Status: Former Tobacco user Tobacco use type: Cigarette Years Smoked: 15 e-Cigarette/Vaping Use: Never Used Second Hand Smoke Exposure: No Substance Use Type: Marijuana service: No Current occupational status: unemployed Cognitive needs: No Hearing needs: No Vision needs: No Questionnaire PHQ-9 Over the last 2 weeks, how often have you been bothered by any of the following problems? 1. Little interest or pleasure in doing things: nearly every day 2. Feeling down, depressed, or hopeless: nearly every day 3. Trouble falling or staying asleep, or sleeping too much: more than half the d ays 4. Feeling tired or having little energy: nearly every day 5. Poor appetite or overeating: more than half the days 6. Feeling bad about yourself - or that you are a failure or have let yourself or your family down: nearly every day 7. Trouble concentrating on things, such as reading the newspaper or watching te levision: more than half the days 8. Moving or speaking so slowly that other people could have noticed. Or the opposite - being so fidgety or restless that you have been moving around a lot more than usual: not at all 9. Thoughts that you would be better off or of hurting yourself in some way: not at all Total score: 18 Depression Screening Interpretation: Positive (denies any si or hi, has a psychiatrist, does not want a therapist) Depression Screening Follow-up: Existing condition and In treatment Depression Screening Done: Yes 78224 - PHQ-9 Billing: Yes Source: Developed by Drs. Bladimir Maldonado, Jessie Charlton, Abebe Scherer and colleagues, with an educational delilah from [employer]. Thrive Questionnaire Date Thrive assessed: 08/18/24 I am a: Patient What is your living situation today?: I choose not to answer this question Within the past 12 months, did the food you bought not last and you didn't have the money to get more?: I choose not to answer this question Within the past 12 months, did you worry whether your food would run out before you got money to buy more?: I choose not to answer this question Do you have trouble paying for medicines?: I choose not to answer this question Do you have trouble getting transportation to medical appointments?: I choose not to answer this question Do you have trouble paying your heating and electricity bill?: I choose not to a nswer this question Do you have trouble taking care of your child, family member or friend?: I choose not to answer this question Do you have trouble with day-to-day activities such as bathing, preparing meals, shopping, managing finances, etc.?: I choose not to answer this question Are you currently unemployed and looking for a job?: I choose not to answer this question Are you interested in more education?: I choose not to answer this question Please select the resources that you would like help with: None Currently or been in a relationship where the following occur: No concerns reported THRIVE Score: 0 AUDIT C Alcohol Use Questionnaire (AUDIT-C) 1. How often do you have a drink containing alcohol?: 4 or more times a week 2. How many drinks containing alcohol do you have on a typical day when you are drinking?: 3 or 4 3. How often do you have six or more drinks on one occasion?: Less than monthly Total Score: 6 Score Reviewed/Action Taken: Yes LYNNETTE-7 AMB Questionnaire LYNNETTE-7 Date LYNNETTE - 7 assessed: 08/18/24 Feeling nervous, anxious, or on edge: 3 = Nearly every day Not being able to stop or control worryin = Nearly every day Worrying too much about different things: 3 = Nearly every day Trouble relaxin = Nearly every day Being so restless that it is hard to sit still: 1 = Several days Becoming easily annoyed or irritable: 1 = Several days Feeling afraid as if something awful might happen: 2 = More than half the days Total LYNNETTE-7 score (0-4 normal; 5-9 mild; 10-14 moderate; 15-21 severe): 16 Source: Developed by Drs. Bladimir Maldonado, Jessie Charlton, Abebe Scherer and colleagues, with an educational delilah from [employer]. LYNNETTE-7 Assessment Billing LYNNETTE-7 Assessment Tool: LYNNETTE-7 Assessment 16584 (denies any si or hi, has a psychiatrist, declined a therapist) Physical exam (Primary Care) Vital Signs: Last Vital Signs Temp 97.9 F 08/18/24 10:12 Pulse 64 08/18/24 10:12 BP 106/72 08/18/24 10:12 Pulse Ox 97 08/18/24 10:12 Oxygen Delivery Method Room Air 08/18/24 10:12 BMI result Body Mass Index 27.3 Tobacco/Smoking Status: Tobacco use Status Tobacco use date assessed 08/18/24 08/18/24 10:18 Patient Tobacco Use Status Former Tobacco user 08/18/24 10:18 Tobacco use type Cigarette 08/18/24 10:18 e-Cigarette/Vaping Use Never Used 08/18/24 10:18 PHQ-9: PHQ-9 Score PHQ-9: Total score 18 08/18/24 10:18 Depression Screening Interpretation: Positive (denies any si or hi, has a psychiatrist, does not want a therapist) Depression Screening Follow-up: Existing condition and In treatment Thrive Assessment: Date of Thrive Assessment Date Thrive assessed 08/18/24 08/18/24 10:18 Currently or been in a relationship where the following occur: No concerns reported Coding Level of Care Code Est Pt Level 3 (86736) Diagnoses Deviated septum J34.2 Abscess L02.91 Dyslipidemia E78.5 Additional Codes PHQ-9 - 61645 - PHQ-9 Billing: Yes ([id number]) LYNNETTE-7 Assessment Billing - LYNNETTE-7 Assessment Tool: LYNNETTE-7 Assessment 12122 ([id number]) Assessment & Plan Assessment & Plan (1) Deviated septum: Code(s): J34.2 - Deviated nasal septum Category: Medical (2) Abscess: Code(s): L02.91 - Cutaneous abscess, unspecified Category: Medical (3) Dyslipidemia: Code(s): E78.5 - Hyperlipidemia, unspecified Category: Medical Plan . Orders: Referrals Ear/Nose/Throat Referral J34.2 - Deviated nasal septum
[2024-08-18 10:12] VITALS: BP 106/72; PULSE 64; TEMP 36.6; O2SAT 97; BMI 27.3
== END 2024-08-18 10:58 | disposition home or self-care (01) ==
LOC: HO.HMCC 10:02
PROVIDERS: PCP Nurse Practitioner Family; Visit Provider Nurse Practitioner Family
DX: J34.2 Deviated nasal septum (principal); L02.91 Cutaneous abscess, unspecified; E78.5 Hyperlipidemia, unspecified

== ENCOUNTER 2024-09-26 10:32 | Outpatient (AMB) | payer OTHER, SELFPAY ==
[2024-09-26 11:03] VITALS: BP 126/72; PULSE 76; TEMP 36.8; O2SAT 97; BMI 26.6
--- NOTE | 2024-09-26 11:03 | AM.OFFWIN_ITS ---
Intake Vital Signs 09/26/24 11:03 Height 6 ft Weight 196 lb 6 oz BMI 26.6 BP 126/72 Blood Pressure Location Lt brachial Position Sitting Pulse 76 Pulse Source Pulse Oximeter Temp 98.2 F Temp Source Oral Pulse Oximetry (%) 97 Oxygen Delivery Method Room Air Intake Visit Reasons: EP-lt armpit rash Intake Note: Patient presents with a left armpit rash times 1 week. Red raised bumps, not itchy has a burning sensation. States there were blisters but popped Patient Tobacco Use Status: Former Tobacco user [employer] Required: No Allergies No Known Allergies Allergy (Verified 09/26/24 11:08) Do you need a note to return to daycare/school/sports/work: No HPI HPI Comments History of Present Illness Details History - The patient is a 49-year-old male pres enting with painful blisters in the armpit area. - Symptoms began on the 14th after swimm ing, with small, itchy blisters appearing. - Blisters were open and painful, with a burning sensation, containing clear fluid. - Attempted management included soap, al cohol, and pressure, leading to yellow fluid discharge. - No systemic symptoms such as fever or chills were reported. - He was with a neice that had impetigo but it was weeks prior to the rash starting. - He denies joint pain, CP, SOB, abd jessica n. He has had some diarrhea, no vomiting or nausea. Physical Exam General: Cooperative, healthy appearing, comfortable, no acute distress and well developed Orientation: Patient oriented x3 Limitations: No limitations Mouth: normal, moist oral mucosa Neck: Normal visual inspection and Yes full ROM Respiratory: Normal respiratory effort and able to speak in complete sentences. Clear to auscultation bilaterally. No w/r/r noted. Cardiovascular: RRR, no m/r/g noted. Normal S1 and S2 Skin: Small, erythematous, oval, blanchable, non- fluctuant, dry, flaking lesions noted in the left axilla. No discharge or bleeding noted. Patient was informed and verbally consented to the use of an ambient scribe for clinic note documentation during this visit [facility] Medical History Fatty liver Pre-op examination Screening for colon cancer Physical exam Hematoma of nasal septum Surgical History Hx of esophagogastroduodenoscopy H/O knee surgery Hx of tonsillectomy H/O colonoscopy Previous back surgery Family History Mother Substance use disorder Mental health disorder Father Mental health disorder Maternal Grandmother Mental health disorder Maternal Uncle Mental health disorder Maternal Grandfather Skin cancer Maternal Uncle Cancer Maternal Aunt Breast cancer Social History Household Members: Family Housing: House Do you presently have visiting nurse or other home services: No Patient Tobacco Use Status: Former Tobacco user Tobacco use type: Cigarette Years Smoked: 15 e-Cigarette/Vaping Use: Never Used Second Hand Smoke Exposure: No Substance Use Type: Marijuana service: No Current occupational status: unemployed Cognitive needs: No Hearing needs: No Vision needs: No Review of Systems Const All systems reviewed & are unremarkable except as noted in HPI and below Physical Exam Vital Signs: Last Vital Signs Temp 98.2 F 09/26/24 11:03 Pulse 76 09/26/24 11:03 BP 126/72 09/26/24 11:03 Pulse Ox 97 09/26/24 11:03 Oxygen Delivery Method Room Air 09/26/24 11:03 BMI result Body Mass Index 26.6 Assessment & Plan Assessment & Plan (1) Rash: Code(s): R21 - Rash and other nonspecific skin eruption Plan Most likely contact dermatitis vs Shingles vs folliculitis vs impetigo plan - Consider treatment with Valacyclovir to address viral infection. - Application of antibiotic cream to affected area. - Consider oral antibiotics if bacterial infection is suspected. - Keep area clean and dry - Follow up with PCP - May need a derm referral Medications: New cephalexin 500 mg PO Q6H 28 caps 0RF 7 days valacyclovir 1,000 mg PO Q8H 21 tabs 0RF 7 days mupirocin 2% 1 appl topical TID 22 grams 0RF 7 days Coding Level of Care Code Est Pt Level 3 (14629) Diagnoses Rash R21
== END 2024-09-26 12:26 | disposition home or self-care (01) ==
PROVIDERS: PCP Nurse Practitioner Family; Visit Provider Physician Assistant Medical
DX: R21 Rash and other nonspecific skin eruption (principal)